=== PATIENT | female | born 1950 | race Caucasian/White ===

== ENCOUNTER 2022-10-01 08:45 | Outpatient (RCR) | payer MEDICARE, BC, SELFPAY ==
--- NOTE | 2022-07-09 13:47 | PT.OPDNX ---
PT [facility] Outpatient Daily Note PT [facility] Outpatient Daily Note Start: 05/28/22 07:01 Freq: Status: Active Protocol: Document 07/09/22 12:44 CLGreg (Rec: 07/09/22 12:50 CLGreg [id number]) E-signed By Annika Mckay, PT PT OP Daily Progress Note Visit Information Note Type Daily Note Visit Number [id number] Cancellation Note Cancelled Documentation Eval was on 10/14/21 Insurance Information Recert Due Date 05/27/22 Insurance Name Medicare B Medical Diagnosis BPPV Treating Diagnosis Ke Post Canal BPPV, imbalance Referring MD Dr Rosa Isela Siddiqui Subjective Subjective I have been having small symptoms over the past 2 weeks . It is not constant, and so far it is tolerable. Pattern of vertigo with looking up/ back, laying down on the right side. I'm just concerned it might turn into something more aggressive. Want to catch it early to prevent it getting worse. Pain Comments NA Dizziness scale score remains low Precautions Treatment Precautions/Contraindications Fall Risk if vertigo symptoms are triggered Weight Bearing Status Full Weight Bearing Home Exercise Home Exercise Comments She has been educated in postural tips, UT stretch, CX retraction with chin nods Objective Patient Instructed in Risks/Benefits Yes Manual Therapy Techniques Manual Therapy Minutes (minutes) 18 Manual Therapy Techniques Due to increased shoulder elevation and gaurding, she exhibited hypertonicity in ke UT and Rt scalene/levator. Completed DTM ke CS and along med and sup scap borders TPR. Maintaining neutral head on body position - completed in sitting. Neuromuscular Re-Ed Neuromuscular Reeducation Minutes ( 21 minutes) Neuromuscular Reeducation Comments (+) Rt Blackshear-Hallpike, so we completed Rt Canolyth repositioning for Rt BPPV X 2 reps with 5 min rest between reps. She reported full resolution of dizziness sxs following this treatment. Rt upward nystagmus seen in first treatment position. Negative re-testing following treatment. Reviewed with pt grounding exercise with diaphragmatic breathing after treatment. Treatment Minutes Timed Code Treatment Minutes 39 Total Treatment Time 39 Billing Units Manual Therapy Units 1 Therapeutic Activity Units 2 Assessment/Impression Assessment/Impression Client states she has been fairly symptoms free for the past 2 months, but slowly returning of unknown etiology. She was + testing for R posterior BPPV again today with sxs consistent with cupulothesis with immediate onset of sxs with testing again today. She is scheduled again for another PT session next week. Will re-assess symptoms and canals and treat as appropriate. Good response to Canolyth repositioning for Rt BPPV. Intrasession resolution of dizziness. She has been educated in post session reduced activity level and states she will be inactive and not complete any gardening/forward flexion or extra head on body movements. Tolerated DTM well for hypertonicity noted at CX region. Nice progress towards goals. Plan of Care Physical Therapy Goals To be completed within 10 weeks 1. Pt will report ability to complete bed mobility without dizziness. 2. Pt will demonstrate active cervical ROM without dizziness in order to better complete ADLs. 3. Pt will demonstrate independence with individualized HEP for self symptom management and to carryover therapeutic gains following discharge from PT services. Recertification Information Initial Certification Date 10/14/21 Recertification Start Date 07/09/22 Recertification Due Date 10/01/22 Reasons to Continue Skilled Therapy Intermittent sensation of dizziness CX pain and stiffness Rehabilitation Potential Good Continued Plan of Care and Interventions 1X/Wk for 10 visits Provider Signature Shows Agreement With POC & Medical Necessity Physician Comment/Change Comment or Changes Physician NPI Number #
== END 2022-12-22 15:29 | disposition home or self-care (01) ==
PROVIDERS: PCP Family Medicine; Visit Provider Family Medicine
DX: H81.13 Benign paroxysmal vertigo, bilateral (principal); Z51.89 Encounter for other specified aftercare
CPT/HCPCS: 95992; 97112; 97140; 97530; 97535

== ENCOUNTER 2023-05-26 08:15 | Outpatient (CLI) | payer MEDICARE, BC, SELFPAY | END 2023-05-26 08:16 | disposition home or self-care (01) | LOC: INJ CL 08:16 | PROVIDERS: PCP Family Medicine; Visit Provider Family Medicine | DX: M54.16 Radiculopathy, lumbar region (principal); M51.36 Other intervertebral disc degeneration, lumbar region | CPT/HCPCS: 62323; J0702; Q9966 ==

== ENCOUNTER 2023-06-11 09:30 | Outpatient (RCR) | payer MEDICARE, BC, SELFPAY | END 2023-10-09 23:59 | disposition home or self-care (01) | PROVIDERS: PCP Family Medicine; Visit Provider Family Medicine | DX: M48.062 Spinal stenosis, lumbar region with neurogenic claudication (principal); M43.16 Spondylolisthesis, lumbar region; Z51.89 Encounter for other specified aftercare | CPT/HCPCS: 97012; 97110; 97140; 97162 ==

== ENCOUNTER 2023-07-28 07:23 | Outpatient (CLI) | payer MEDICARE, BC, SELFPAY | END 2023-07-28 07:24 | disposition home or self-care (01) | LOC: INJ CL 07:26 | PROVIDERS: PCP Family Medicine; Visit Provider Family Medicine | DX: M54.16 Radiculopathy, lumbar region (principal); M48.062 Spinal stenosis, lumbar region with neurogenic claudication | CPT/HCPCS: 62323; J0702; Q9966 ==

== ENCOUNTER 2023-08-18 18:57 | Outpatient (CLI) | payer MEDICARE, BC, SELFPAY | END 2023-08-18 18:58 | disposition home or self-care (01) | LOC: AMB 08-21 21:36 | PROVIDERS: PCP Family Medicine; Visit Provider Family Medicine | DX: S89.92XA Unspecified injury of left lower leg, initial encounter (principal); W18.30XA Fall on same level, unspecified, initial encounter; Y92.009 Unspecified place in unspecified non-institutional (private) residence as the place of occurrence of the external cause | CPT/HCPCS: A0425; A0427; A0433 ==

== ENCOUNTER 2023-08-18 19:39 | Emergency (ER) | payer MEDICARE, BC, SELFPAY ==
--- NOTE | 2023-08-18 19:53 | CRLHL7_ITS ---
For Patients: As a result of the Cures Act, medical imaging exams and procedure reports are released immediately into your electronic medical record. You may view this report before your referring provider. If you have questions, please contact your health care provider. INDICATION: Femur injury from fall TECHNIQUE: Femur radiograph 4 views left COMPARISON: None FINDINGS: An overlying leg brace moderately limits the sensitivity and specificity of the examination. Bone: There is an angulated periprosthetic fracture seen along the tip of the femoral prosthesis. The distal fragment is displaced by 1 bone width. Joint: A constrained total knee arthroplasty is present with 2 cerclage wires noted in the distal femur. No significant joint effusion is seen. Soft tissue: Unremarkable. No radiopaque foreign bodies are seen. IMPRESSION: 1. There is an angulated periprosthetic fracture seen along the tip of the femoral prosthesis. The distal fragment is displaced by 1 bone width. Dictated by Reji Diaz MD @ 08/18/2023 9:32:37 PM Dictated by: Reji Diaz MD @ 08/18/2023 21:34:33 (Electronically Signed)
[2023-08-18 19:57] VITALS: BP 172/72; PULSE 74; RESP 18; TEMP 36.8; O2SAT 99; BMI 43.5
[2023-08-18 20:00] VITALS: BP 151/69; PULSE 74; RESP 18; O2SAT 97
[2023-08-18 20:30] VITALS: BP 164/49; PULSE 84; RESP 18; O2SAT 99
[2023-08-18 20:42] LABS: Basophils Absolute Auto 0.04 K/uL (0.00-0.30); Basophils Percent Auto 0.6 % (0.0-3.0); Eosinophils Absolute Auto 0.11 K/uL (0.00-0.50); Eosinophils Percent Auto 1.7 % (0.0-7.0); Hematocrit 29.3 % (33.0-51.0); Hemoglobin* 9.7 gm/dL (12.0-16.0); Immature Granulocytes Abs Auto 0.06 K/uL (0.00-0.30); Immature Granulocytes Pct Auto 0.9 %; Lymphocytes Percent Auto 14.5 % (20-44); Mean Corpuscular HGB Conc 33 gm/dL (32-36); Mean Corpuscular Hemoglobin 32 pg (26-34); Mean Corpuscular Volume 97 fL (80-100); Monocytes Percent Auto 7.2 % (0.0-11.0); Neutrophils Percent Auto 75.1 % (42.0-72.0); Platelet Count* 115 K/uL (140-440); Red Blood Count 3.02 m/uL (4.00-5.20); White Blood Count* 6.54 K/uL (4.50-11.00)
[2023-08-18 20:51] LABS: Slide Review Reflex No
[2023-08-18 20:59] LABS: Chloride* 101 mmol/L (96-114); Potassium* 3.5 mmol/L (3.6-5.1); Sodium* 137 mmol/L (135-149)
[2023-08-18 21:00] VITALS: BP 160/55; PULSE 83; RESP 18; O2SAT 99
[2023-08-18 21:01] LABS: INR 1.02 (0.91-1.10)
[2023-08-18 21:02] LABS: Anion Gap 10 mEq/L (7-15); Blood Urea Nitrogen* 30 mg/dL (7-30); Carbon Dioxide* 26 mmol/L (20-32); Creatinine* 1.1 mg/dL (0.5-1.5); Est. Creatinine Clearance* 34.37; Estimated Glomerular Filt Rate 53 ml/min; Glucose* 138 mg/dL (60-115); Partial Thromboplastin Time* 27 Seconds (23-33)
[2023-08-18 21:03] LABS: Calcium* 9.8 mg/dL (8.4-10.6)
--- NOTE | 2023-08-18 21:15 | ED_ITS ---
HPI - General Adult General Date Seen: 08/18/23 Chief complaint: Extremity Pain/Injury, Lower Stated complaint: Fall Time Seen by Provider: 08/18/23 19:48 Source: patient and EMS Mode of arrival: EMS Limitations: no limitations History of Present Illness HPI narrative: Patient is a 73-year-old woman who says that yesterday she turned funny, kind of tweaked her left leg, she had been having some pain shooting down the leg since then. She stood up from the couch today, had pain again, and then just feels like her leg went out from under her, she fell landing on her left side and then had severe pain and deformity in the left thigh. She denies head or neck injury. She had 100 mcg of fentanyl in the ambulance and now feels comfortable. She arrived on a backboard. The left leg is shortened. She has a history of TKA on the left, she then apparently broke through that titanium josé miguel on that side, had to have a revision which was done at [place]. That was in the past year or 2. Past medical history includes diabetes, vertigo, hypertension. She does not take any anticoagulation. Review of Systems Status of ROS: Reports: 10 or more systems reviewed and unremarkable except as noted in History and below [facility] Social History Smoking Status: Never smoker Do you use any of these nicotine containing products: None How often do you have a drink containing alcohol: never AUDIT-C Alcohol total score: 0 Non-prescribed substance use: denies use Exam Narrative: Exam Narrative: Vital signs as noted above. In general, an alert, nontoxic woman. Head: Normocephalic, atraumatic. Eyes: Pupils are equal reactive. Extraocular movements are full. Conjunctivae are normal. ENT: Mucous membranes are moist. Neck: Supple without lymphadenopathy. Nontender palpation. Heart: Regular rate and rhythm. No murmur or rub. Lungs: Clear bilaterally. No increased work of breathing, crackles or wheezes. Abdomen: Soft and nontender. No organomegaly. Extremities: Left leg is shortened. No bruising or active external bleeding. Distal CMS is normal, pulses intact. Neurologic: Patient is alert and oriented to person and place. Speech is fluent. Face is symmetric. Moves all extremities equally. Affect: Normal. Skin: Warm and dry. Well perfused. Const: Vital Signs, click to edit/add: Vital Signs - 24 hr 08/18/23 19:57 08/18/23 20:00 08/18/23 20:30 Temperature 98.2 F Pulse Rate [Right Pulse Oximeter] 74 74 84 Respiratory Rate 18 18 18 Blood Pressure [Ri ght Upper Arm] 172/72 H 151/69 H 164/49 H Pulse Oximetry 99 97 99 Oxygen Delivery Me thod Room Air Room Air Room Air 08/18/23 21:00 08/18/23 21:30 Temperature Pulse Rate [Right Pulse Oximeter] 83 84 Respiratory Rate 18 18 Blood Pressure [Ri ght Upper Arm] 160/55 H 160/58 H Pulse Oximetry 99 99 Oxygen Delivery Me thod Room Air Room Air Documenting provider has reviewed patient's vital signs: yes Course Course ED Course: Patient remained on the backward, she was comfortable there and it allowed us to stabilize her leg. She declined the need for anything more for pain. Labs were drawn, portable x-rays were done of the femur which by my review show an angula rambo, displaced fracture of the mid shaft, just proximal to the josé miguel from her TKA revision. I did call [address] given that that is where her most recent surgery was done, they are on full divert and do not have any bed availability. I was able to ultimately find a bed at [facility] and spoke with Dr. Liriano, who was on- call for the Orthopedic Service. He was able to review her x-rays, accepted her to their hospital and then I spoke with the PA who was taking admissions for our hospitalist service. Labs have returned showing a hemoglobin of 9.7, baseline unknown. The last hemoglobin we have here is from 2006. She does however have otherwise normal red blood cell indices. Platelet count slightly low 115,000. Coags normal. Metabolic panel fairly unremarkable. Potassium is 3.5. Blood sugar was 138. We do not have any kind of hare traction or other stabilizing measures here aside from splinting with Ortho Glass. For the time being, she is comfortable, vital signs are stable, transfer to tertiary care has been arranged. I believe EMS may potentially have traction splinting available, will check with them when they arrive. Alford catheter placed. Dilaudid 0.5 mg given. Vital Signs Vital signs: Initial Vital Signs Temperature 98.2 F 08/18/23 19:57 Temperature Source Temporal Artery Scan 08/18/23 19:57 Pulse Rate 74 08/18/23 19:57 Respiratory Rate 18 08/18/23 19:57 Blood Pressure 172/72 H 08/18/23 19:57 Blood Pressure Mean 105 08/18/23 19:57 Blood Pressure Position Supine 08/18/23 19:57 Pulse Oximetry 99 08/18/23 19:57 Oxygen Delivery Method Room Air 08/18/23 19:57 Vital Signs Temperature 98.2 F 08/18/23 19:57 Pulse Rate 74 08/18/23 19:57 Respiratory Rate 18 08/18/23 19:57 Blood Pressure 172/72 H 08/18/23 19:57 Pulse Oximetry 99 08/18/23 19:57 Oxygen Delivery Method Room Air 08/18/23 19:57 Temperature 98.2 F 08/18/23 19:57 Pulse Rate 84 08/18/23 21:30 Respiratory Rate 18 08/18/23 21:30 Blood Pressure 160/58 H 08/18/23 21:30 Pulse Oximetry 99 08/18/23 21:30 Oxygen Delivery Method Room Air 08/18/23 21:30 Medical Decision Making Lab Data Labs: Lab Results 08/18/23 Range/Units 20:32 WBC 6.54 (4.50-11.00) K/uL RBC 3.02 L (4.00-5.20) m/uL Hgb 9.7 L (12.0-16.0) gm/dL Hct 29.3 L (33.0-51.0) % MCV 97 (80-100) fL MCH 32 (26-34) pg MCHC 33 (32-36) gm/dL RDW Coeff of Cece 14.0 (11.5-15.5) % Plt Count 115 L (140-440) K/uL Neut % (Auto) 75.1 H (42.0-72.0) % Lymph % (Auto) 14.5 L (20-44) % Russell % (Auto) 7.2 (0.0-11.0) % Eos % (Auto) 1.7 (0.0-7.0) % Baso % (Auto) 0.6 (0.0-3.0) % Neut # (Auto) 4.90 (1.7-7.0) K/uL Lymph # (Auto) 0.90 (0.90-2.90) K/uL Russell # (Auto) 0.50 (0.00-0.90) K/UL Eos # (Auto) 0.11 (0.00-0.50) K/uL Baso # (Auto) 0.04 (0.00-0.30) K/uL Abs Immat Gran (auto) 0.06 (0.00-0.30) K/uL Imm/Tot Granulo (auto) 0.9 % INR 1.02 (0.91-1.10) APTT 27 (23-33) Seconds Sodium 137 (135-149) mmol/L Potassium 3.5 L (3.6-5.1) mmol/L Chloride 101 (96-114) mmol/L Carbon Dioxide 26 (20-32) mmol/L Anion Gap 10 (7-15) mEq/L BUN 30 (7-30) mg/dL Creatinine 1.1 (0.5-1.5) mg/dL Estimated Creat Clear 34.37 Estimated GFR 53 ml/min Glucose 138 H (60-115) mg/dL Calcium 9.8 (8.4-10.6) mg/dL Discharge Plan Discharge Clinical Impression: Chloé-prosthetic femoral shaft fracture Patient Disposition: Xfer Other Condition: Stable Stand Alone Forms: MyHealth Info Instructions
[2023-08-18 21:30] VITALS: BP 160/58; PULSE 84; RESP 18; O2SAT 99
--- NOTE | 2023-08-18 21:48 | ED.NURSE ---
report to [facility] nurse pablo FARMER. pt okay to transfer
[2023-08-18] MEDS: HYDROmorphone 0.5 mg/0.5 ml inj IVP (22:11)
[2023-08-18 22:52] VITALS: O2SAT 97
== END 2023-08-18 22:56 | disposition other institution (70) ==
PROVIDERS: Emergency Provider Emergency Medicine; PCP Family Medicine
DX: T84.115A Breakdown (mechanical) of internal fixation device of left femur, initial encounter (principal); X58.XXXA Exposure to other specified factors, initial encounter
CPT/HCPCS: 29505; 36415; 51702; 73552; 80048; 85025; 85610; 85730; 94761; 99284; 99285; J1170

== ENCOUNTER 2023-08-18 21:55 | Outpatient (CLI) | payer MEDICARE, BC, SELFPAY | END 2023-08-18 21:56 | disposition home or self-care (01) | LOC: AMB 08-21 21:39 | PROVIDERS: PCP Family Medicine; Visit Provider Family Medicine | DX: M97 Periprosthetic fracture around internal prosthetic joint (principal) | CPT/HCPCS: A0425; A0427 ==

== ENCOUNTER 2023-11-25 15:33 | Inpatient (IN) | payer MEDICARE, BC, SELFPAY ==
[2023-11-25] VITALS (14 sets, daily range): BP systolic 95–146; BP diastolic 33–81; PULSE 66–82; RESP 12–20; TEMP 36.1–36.8; O2SAT 93–100; BMI 41.4; BMI 42.4
--- NOTE | 2023-11-25 16:11 | ED.GENADULT ---
HPI - General Adult General Time Seen by Provider: 16:11 Date Seen: 11/25/23 Chief complaint: Weakness Stated complaint: Hemoglobin 5.8- sent over from [facility] Time Seen by Provider: 11/25/23 16:06 Source: patient Mode of arrival: ambulatory Limitations: no limitations History of Present Illness HPI narrative: This 73-year-old female is referred to us from [facility] for weakness, dyspnea on exertion and found to have a hemoglobin of 5.8. Two weeks ago her hemoglobin was 8. She has maybe noticed some blood in her stool but states she was told she had perianal skin tags found on her last colonoscopy which was 07/04/2021. She states Dr. Emmanuel did that procedure. I have outside documentation that shows she had negative pathology, ileum was biopsied, anal papilloma or hypertrophied in biopsied biopsies with cold forceps from the entire colon for evaluation of microscopic colitis was done, report states that all pathology was negative. She did have a redundant colon, diverticulosis in the sigmoid colon. She feels occasionally 1 of the anal polyps will break off and will bleed for while. She does state that she is on Pepcid, somewhat controls her GI symptoms. She used to be on Prilosec she believes but was switched over to the Pepcid due to some underlying kidney issues. She is not experiencing any abdominal pain, no nile GI bleeding, no chest pain. She does note that she just feels very weak, gets very short of breath with activity. She did have a femur fracture and was hospitalized in July of this year for this fracture. She did get Feraheme 510 mg, 2 doses July 01 and 07/08/2023; prior to that it looks like she is had Feraheme in July of 2022 for 2 doses of 510 mg. There is a reported Hematology consult on 08/10/2023, her anemia dates back to 2019. She would agree to a transfusion today. Colonoscopy before the 1 in 2020 was June of 2013 and was normal with recommendation to repeat in 10 years. She states her most recent 1 that she was told she could repeat in 10 years. The Hematology found her to have iron deficiency anemia, longstanding, dating back to at least 15 years ago. Her white blood count today was 6000, hemoglobin 5.8, platelet count [id number] in clinic. On 11/11/2023, patient had a normal electric for retic pattern on serum electrophoresis, no monoclonal protein was detected her hemoglobin on November 04 from clinic was 9.8. EKG from clinic showed normal sinus rhythm, 69 beats per minute, no ischemia. Related Data Home Medications Medication Instructions Recorded Confirmed allopurinol 100 mg tablet 100 - 200 mg PO Q12H 11/25/23 11/25/23 ampicillin 500 mg capsule 2,000 mg PO ONCE 11/25/23 11/25/23 aspirin 81 mg capsule 81 mg PO DAILY 11/25/23 11/25/23 celecoxib 100 mg capsule 100 mg PO BID PRN pain 11/25/23 11/25/23 cyclobenzaprine 10 mg tablet 10 mg PO HS PRN 11/25/23 11/25/23 dulaglutide 1.5 mg/0.5 mL 1.5 mg subcut .twice week 11/25/23 11/25/23 subcutaneous pen injector (Trulicity) famotidine 20 mg tablet 20 mg PO BID 11/25/23 11/25/23 ferrous sulfate 325 mg (65 mg 325 mg PO DAILY 11/25/23 11/25/23 iron) tablet (Feosol) fluticasone propionate 50 2 spray intranasal DAILY 11/25/23 11/25/23 mcg/actuation nasal spray,suspension gabapentin 300 mg capsule 600 - 900 mg PO Q12H 11/25/23 11/25/23 glipizide 10 mg tablet, extended 10 mg PO DAILY 11/25/23 11/25/23 release 24 hr hydrochlorothiazide 25 mg tablet 25 mg PO DAILY 11/25/23 11/25/23 loratadine 10 mg tablet (Claritin) 10 mg PO DAILY 11/25/23 11/25/23 losartan 50 mg tablet 50 mg PO DAILY 11/25/23 11/25/23 meclizine 25 mg tablet 25 mg PO TID PRN 11/25/23 11/25/23 metoprolol tartrate 25 mg tablet 12.5 mg PO Q12H 11/25/23 11/25/23 montelukast 10 mg tablet 10 mg PO QPM 11/25/23 11/25/23 polyethylene glycol 3350 17 17 g PO DAILY PRN 11/25/23 11/25/23 gram/dose oral powder (ClearLax) simvastatin 40 mg tablet 40 mg PO QPM 11/25/23 11/25/23 tramadol 50 mg tablet 50 mg PO BID PRN pain 11/25/23 11/25/23 Allergies Allergy/AdvReac Type Severity Reaction Status Date / Time acetaminophen [From Percocet] AdvReac Intermediate nausea and Verified 11/25/23 16:12 headache oxycodone [From Percocet] AdvReac Intermediate nausea and Verified 11/25/23 16:12 headache Review of Systems Status of ROS: Reports: 6 or more systems reviewed and unremarkable except as noted in History and below PFSH [facility] Social History Smoking Status: Never smoker Do you use any of these nicotine containing products: None How often do you have a drink containing alcohol: never AUDIT-C Alcohol total score: 0 Non-prescribed substance use: denies use Exam Const: Vital Signs, click to edit/add: Vital Signs - 24 hr 11/25/23 15:38 11/25/23 17:06 Temperature 98.2 F Pulse Rate [Pulse Oximeter] 74 Respiratory Rate 18 Blood Pressure [Ri ght Forearm] 117/66 Pulse Oximetry 100 96 Oxygen Delivery Me thod Room Air This 73-year-old female is alert, interactive, no apparent distress. She does look mildly pale but does not seem frail at all. Sclera clear, conjugate gaze. Neck supple, no cervical adenopathy driving stench in noted. Lungs clear, good air entry, no wheezing or crackles, no tachypnea, no accessory muscle use. CV regular rate and rhythm, soft 1-2 systolic ejection murmur heard along the right sternal border, no radiation anywhere. Normal S1-S2, no S3-S4. Abdomen is mildly obese but soft, nontender, no palpable masses. She has thickened lower extremities but no edema. She has some redundant it anal mucosa but no skin takes noted, no active bleeding. Rectal exam is without any mass, dark tarry stool is taken, small amount, this is sent for fecal occult blood. Note patient does take daily iron supplement. Documenting provider has reviewed patient's vital signs: yes Course Course ED Course: Patient does agree to a transfusion, she wants 1, wants to feel better. Will do blood work on her, get her cross matched for 2 units, at 5.8, 1 unit and is not likely to be sufficient. Will see where her creatinine lies today, consider giving her proton pump inhibitor IV but does for kidney dysfunction. She is currently stable, does not have any evidence of any acute bleeding. Await the fecal occult blood. Do not see that she needs any imaging at this time, exam is otherwise benign, no abdominal exam, no fevers. Consultations Consultation #1: Spoke with Dr. Mckeon our surgeon on-call. She agrees to at this patient for EGD tomorrow. I will place the order, and did leave a message on the endoscopy phone as she requested. Time: 16:29 Consultation #2: Spoke with Cinthia Mena, this patient is accepted for admission. Will give Protonix 40 mg IV. Fecal occult blood still pending at time of admission. Time: 17:40 Vital Signs Vital signs: Initial Vital Signs Temperature 98.2 F 11/25/23 15:38 Temperature Source Temporal Artery Scan 11/25/23 15:38 Pulse Rate 74 11/25/23 15:38 Respiratory Rate 18 11/25/23 15:38 Blood Pressure 117/66 11/25/23 15:38 Blood Pressure Mean 83 11/25/23 15:38 Blood Pressure Position Sitting 11/25/23 15:38 Pulse Oximetry 100 11/25/23 15:38 Oxygen Delivery Method Room Air 11/25/23 15:38 Vital Signs Temperature 98.2 F 11/25/23 15:38 Pulse Rate 74 11/25/23 15:38 Respiratory Rate 18 11/25/23 15:38 Blood Pressure 117/66 11/25/23 15:38 Pulse Oximetry 100 11/25/23 15:38 Oxygen Delivery Method Room Air 11/25/23 15:38 Temperature 98.2 F 11/25/23 15:38 Pulse Rate 74 11/25/23 15:38 Respiratory Rate 18 11/25/23 15:38 Blood Pressure 117/66 11/25/23 15:38 Pulse Oximetry 96 11/25/23 17:06 Oxygen Delivery Method Room Air 11/25/23 15:38 Medical Decision Making Lab Data Lab results reviewed: Yes I reviewed the patient's lab results Labs: Lab Results 11/25/23 11/25/23 11/25/23 Range/Units 14:40 16:40 16:56 WBC 5.44 (4.50-11.00) K/uL RBC 1.63 L (4.00-5.20) m/uL Hgb 5.3 L* (12.0-16.0) gm/dL Hct 18.2 L (33.0-51.0) % MCV 112 H (80-100) fL MCH 33 (26-34) pg MCHC 29 L (32-36) gm/dL RDW Coeff of Cece 20.2 H (11.5-15.5) % Plt Count 175 (140-440) K/uL Neut % (Auto) 74.6 H (42.0-72.0) % Lymph % (Auto) 15.1 L (20-44) % Dougherty % (Auto) 7.5 (0.0-11.0) % Eos % (Auto) 2.0 (0.0-7.0) % Baso % (Auto) 0.4 (0.0-3.0) % Neut # (Auto) 4.10 (1.7-7.0) K/uL Lymph # (Auto) 0.80 L (0.90-2.90) K/uL Dougherty # (Auto) 0.40 (0.00-0.90) K/UL Eos # (Auto) 0.11 (0.00-0.50) K/uL Baso # (Auto) 0.02 (0.00-0.30) K/uL Abs Immat Gran (auto) 0.02 (0.00-0.30) K/uL Imm/Tot Granulo (auto) 0.4 % VBG pH 7.411 (7.32-7.43) VBG pCO2 43 (40-50) mmHG VBG pO2 68.5 H (25-47) mmHG VBG HCO3 27 (21-28) mmol/L Sodium 139 (135-149) mmol/L Potassium 3.4 L (3.6-5.1) mmol/L Chloride 102 (96-114) mmol/L Carbon Dioxide 25 (20-32) mmol/L Anion Gap 12 (7-15) mEq/L BUN 34 H (7-30) mg/dL Creatinine 1.3 (0.5-1.5) mg/dL Estimated Creat Clear 29.08 Estimated GFR 43 ml/min Glucose 119 H (60-115) mg/dL Calcium 8.8 (8.4-10.6) mg/dL Total Bilirubin 0.2 (0.1-1.5) mg/dL AST 19 (12-35) U/L ALT 14 (4-35) U/L Alkaline Phosphatase 52 (40-150) U/L Troponin I < 0.01 L (0.01-0.04) ng/mL Total Protein 6.2 (6.0-8.3) g/dL Albumin 4.0 (3.3-5.0) g/dL Crossmatch (AHG) See Detail Imaging Data Chest x-ray: Attestation: I have reviewed the pertinent imaging results. My impression: I see no evidence of any CHF, no infiltrate, wait radiology over read. Radiologist's impression: Patient: SCARLET GUERIN Facility:?[facility] Patient ID:?[id number] Site Patient ID:?[id number]. Site :?[id number] Study:?XRay Chest 1V PORTABLE-11/25/2023 5:16:28 PM Ordering Physician:Oliva Lennon Final Report: INDICATION: Shortness of breath TECHNIQUE: Chest 1 views. COMPARISON: None. FINDINGS: The heart is mildly enlarged, likely accentuated by portable technique. No focal airspace consolidation, pleural effusion, or pneumothorax. No displaced fractures. IMPRESSION: No acute cardiopulmonary process. Dictated by Alsesio Zhou MD @ 11/25/2023 5:30:08 PM (Electronic Signature) ECG Data Attestation: I personally reviewed and interpreted this ECG as follows: (Normal sinus rhythm, 65 beats per minute, no acute ischemic change, QT corrected 474 milliseconds.) Prior ECG tracings: available for review (Unchanged from clinic comparison.) Discharge Plan Discharge Clinical Impression: Shortness of breath, Iron deficiency anemia Patient Disposition: Admitted As Observation
--- NOTE | 2023-11-25 16:26 | CRLHL7_ITS ---
For Patients: As a result of the Century Cures Act, medical imaging exams and procedure reports are released immediately into your electronic medical record. You may view this report before your referring provider. If you have questions, please contact your health care provider. INDICATION: Shortness of breath TECHNIQUE: Chest 1 views. COMPARISON: None. FINDINGS: The heart is mildly enlarged, likely accentuated by portable technique. No focal airspace consolidation, pleural effusion, or pneumothorax. No displaced fractures. IMPRESSION: No acute cardiopulmonary process. Dictated by Alessio Zhou MD @ 11/25/2023 5:30:08 PM (Electronically Signed)
[2023-11-25 16:51] LABS: HCO3 VBG 27 mmol/L (21-28); PCO2 VBG 43 mmHG (40-50); PO2 VBG 68.5 mmHG (25-47); pH VBG 7.411 (7.32-7.43)
[2023-11-25 16:52] LABS: Basophils Absolute Auto 0.02 K/uL (0.00-0.30); Basophils Percent Auto 0.4 % (0.0-3.0); Eosinophils Absolute Auto 0.11 K/uL (0.00-0.50); Hematocrit 18.2 % (33.0-51.0); Immature Granulocytes Abs Auto 0.02 K/uL (0.00-0.30); Immature Granulocytes Pct Auto 0.4 %; Lymphocytes Percent Auto 15.1 % (20-44); Mean Corpuscular HGB Conc 29 gm/dL (32-36); Mean Corpuscular Hemoglobin 33 pg (26-34); Mean Corpuscular Volume 112 fL (80-100); Monocytes Percent Auto 7.5 % (0.0-11.0); Neutrophils Percent Auto 74.6 % (42.0-72.0); Platelet Count* 175 K/uL (140-440); RDW Coefficient of Variation % 20.2 % (11.5-15.5); Red Blood Count 1.63 m/uL (4.00-5.20); White Blood Count* 5.44 K/uL (4.50-11.00)
[2023-11-25 17:03] LABS: Hemoglobin* 5.3 gm/dL (12.0-16.0); Slide Review Reflex Yes
[2023-11-25 17:12] LABS: Chloride* 102 mmol/L (96-114)
[2023-11-25 17:13] LABS: Potassium* 3.4 mmol/L (3.6-5.1); Sodium* 139 mmol/L (135-149)
[2023-11-25 17:15] LABS: Anion Gap 12 mEq/L (7-15); Aspartate Amino Transferase* 19 U/L (12-35); Bilirubin Total* 0.2 mg/dL (0.1-1.5); Blood Urea Nitrogen* 34 mg/dL (7-30); Carbon Dioxide* 25 mmol/L (20-32); Creatinine* 1.3 mg/dL (0.5-1.5); Est. Creatinine Clearance* 29.08; Estimated Glomerular Filt Rate 43 ml/min; Total Protein* 6.2 g/dL (6.0-8.3)
[2023-11-25 17:16] LABS: Alanine Aminotransferase* 14 U/L (4-35); Alkaline Phosphatase* 52 U/L (40-150); Calcium* 8.8 mg/dL (8.4-10.6); Glucose* 119 mg/dL (60-115)
[2023-11-25 17:29] LABS: Troponin I* < 0.01 ng/mL (0.01-0.04)
[2023-11-25 17:54] LABS: Slide Review Acceptable Review (Acceptable)
--- NOTE | 2023-11-25 18:02 | P.IMHP_ITS ---
Hospitalist- H&P: HPI History of Present Illness Date Seen: 11/25/23 Chief complaint: Hemoglobin 5.8- sent over from greg Narrative: Kina Riley is a 73 year old female past medical history significant for type 2 diabetes mellitus, CKD stage 3, hypertension, hyperlipidemia, obesity, iron deficiency anemia followed by Hematology, spondylolisthesis lumbar, lumbar radiculopathy, s/p bilateral TKA is admitted to the medical floor from the ED for further management anemia. Patient was referred to the ED from the [facility] for weakness and dyspnea on exertion with a finding of a hemoglobin of 5.8 in the clinic. She tells me two weeks prior her hemoglobin was 8.6. She admits to profound fatigue, weakness, shortness of breath with ambulation for the past 5-6 days. She tells me she slept through [place]. She has been taking her usual oral iron and vitamin B12 as prescribed. She even purposely increased her dietary iron intake hoping this would resolve her symptoms. Denies recent headaches. Has occasional dizziness with positional changes with known history of BPV. Denies chest pain. Denies recent fevers chills or sweats. Admits to decreased appetite. Denies abdominal pain nausea vomiting. Had 1 loose stool recently which she describes as looking like tobacco (a light brown rather than a dark brown coffee ground she tells me). She has on occasion small streaks of bright red blood on the toilet paper which is normal for her. No change in urination. History of perianal skin tags and polyps. She takes Pepcid daily, previously taking Prilosec but perhaps stop this in setting of chronic kidney disease. She has a longstanding history of iron deficiency anemia for which she takes oral iron and vitamin B12 daily. She is followed by [facility] Hematology, her last visit was in July. She has been referred to Colorectal surgery but has declined following up with them thus far. ED provider discussed findings with Dr. Mckeon, general surgery. Plan will be for an EGD tomorrow. Patient has remained vitally stable. Review of Systems Narrative: REVIEW OF SYSTEMS: Complete review of systems performed and negative unless otherwise stated in HPI or below. [facility] Medical History (Updated 11/25/23 @ 19:58 by Cinthia Wilson PA-C) Gout ?M10.9 - Gout, unspecified (ICD-10) Chronic pain of left knee ?M25.562 - Pain in left knee (ICD-10) ?G89.29 - Other chronic pain (ICD-10) Lumbar radiculopathy ?M54.16 - Radiculopathy, lumbar region (ICD-10) CKD stage 3 due to type 1 diabetes mellitus ?E10.22 - Type 1 diabetes mellitus with diabetic chronic kidney disease (ICD- 10) ?N18.30 - Chronic kidney disease, stage 3 unspecified (ICD-10) Spondylolisthesis, lumbar region ?M43.16 - Spondylolisthesis, lumbar region (ICD-10) Obesity ?E66.9 - Obesity, unspecified (ICD-10) Hyperlipidemia ?E78.5 - Hyperlipidemia, unspecified (ICD-10) Type 2 diabetes mellitus ?E11.9 - Type 2 diabetes mellitus without complications (ICD-10) Hypertension ?I10 - Essential (primary) hypertension (ICD-10) Surgical History (Updated 11/25/23 @ 18:05 by Cinthia Wilson PA-C) History of total knee arthroplasty ?Z96.659 - Presence of unspecified artificial knee joint (ICD-10) Hx of cholecystectomy ?Z90.49 - Acquired absence of other specified parts of digestive tract (ICD- 10) Social History What is your current living situation?: I presently have a place to live Problems where you live: no known problems Problems where you live details: none In the past 12 months, utilities in danger of being shut off: no In past 12 months, lack of transportation kept you from medical appts, meetings, work, or getting things needed for daily living: no In the past 12 mos, have been you worried that your food would run out before y ou had money to buy more?: never true In the past 12 mos, the food you bought just didn't last and you didn't have money to buy more?: never true Highest level of school completed/degree received: some college, no degree Smoking Status: Never smoker Do you use any of these nicotine containing products: None How often do you have a drink containing alcohol: never AUDIT-C Alcohol total score: 0 Non-prescribed substance use: denies use Caffeine: Yes (1 cup a day) How often does anyone, including family, friends and others, physically hurt you : never How often does anyone, including family, friends and others, insult or talk down to you: never How often does anyone, including family, friends and others, threaten you with harm: never How often does anyone, including family, friends and others, scream or curse at you: never service: No Meds Home Medications and Allergies Home Medications Medication Instructions Recorded Confirmed Type allopurinol 100 mg tablet 100 - 200 mg PO Q12H 11/25/23 11/25/23 History ampicillin 500 mg capsule 2,000 mg PO ONCE 11/25/23 11/25/23 History aspirin 81 mg capsule 81 mg PO DAILY 11/25/23 11/25/23 History celecoxib 100 mg capsule 100 mg PO BID PRN pain 11/25/23 11/25/23 History cyclobenzaprine 10 mg tablet 10 mg PO HS PRN 11/25/23 11/25/23 History dulaglutide 1.5 mg/0.5 mL 1.5 mg subcut .twice week 11/25/23 11/25/23 History subcutaneous pen injector (Trulicity) famotidine 20 mg tablet 20 mg PO BID 11/25/23 11/25/23 History ferrous sulfate 325 mg (65 mg 325 mg PO DAILY 11/25/23 11/25/23 History iron) tablet (Feosol) fluticasone propionate 50 2 spray intranasal DAILY 11/25/23 11/25/23 History mcg/actuation nasal spray,suspension gabapentin 300 mg capsule 600 - 900 mg PO Q12H 11/25/23 11/25/23 History glipizide 10 mg tablet, extended 10 mg PO DAILY 11/25/23 11/25/23 History release 24 hr hydrochlorothiazide 25 mg tablet 25 mg PO DAILY 11/25/23 11/25/23 History loratadine 10 mg tablet (Claritin) 10 mg PO DAILY 11/25/23 11/25/23 History losartan 50 mg tablet 50 mg PO DAILY 11/25/23 11/25/23 History meclizine 25 mg tablet 25 mg PO TID PRN 11/25/23 11/25/23 History metoprolol tartrate 25 mg tablet 12.5 mg PO Q12H 11/25/23 11/25/23 History montelukast 10 mg tablet 10 mg PO QPM 11/25/23 11/25/23 History polyethylene glycol 3350 17 17 g PO DAILY PRN 11/25/23 11/25/23 History gram/dose oral powder (ClearLax) simvastatin 40 mg tablet 40 mg PO QPM 11/25/23 11/25/23 History tramadol 50 mg tablet 50 mg PO BID PRN pain 11/25/23 11/25/23 History Allergies Allergy/AdvReac Type Severity Reaction Status Date / Time acetaminophen [From Percocet] AdvReac Intermediate nausea and Verified 11/25/23 16:12 headache oxycodone [From Percocet] AdvReac Intermediate nausea and Verified 11/25/23 16:12 headache tramadol AdvReac Nausea Verified 11/25/23 19:22 Exam Narrative: Exam Narrative: PHYSICAL EXAM General: Pleasant, conversant, NAD HEENT: Normocephalic, atraumatic, sclera white, EOMI, oral mucosa moist Cardiovascular: RRR, S1S2. No pitting edema Pulmonary: CTA bilaterally without rhonchi, rales, expiratory wheezes. No dyspnea Abdominal: Soft, nondistended, NTTP Neurological: Alert, answering questions appropriately, cranial nerves intact, no focal findings Extremities: No gross joint deformity or swelling. AROMI. Neurovascularly intact Skin: Pale. Warm, dry. Const: Vital Signs, click to edit/add: Vital Signs - 24 hr 11/25/23 15:38 11/25/23 17:06 Temperature 98.2 F Pulse Rate [Pulse Oximeter] 74 Respiratory Rate 18 Blood Pressure [Ri ght Forearm] 117/66 Pulse Oximetry 100 96 Oxygen Delivery Dc thod Room Air Hospitalist - H&P: Result Labs Labs: Short CBC 11/25/23 Range/Units 14:40 WBC 5.44 (4.50-11.00) K/uL Hgb 5.3 L* (12.0-16.0) gm/dL Hct 18.2 L (33.0-51.0) % Plt Count 175 (140-440) K/uL BMP 11/25/23 14:40 Sodium 139 Potassium 3.4 L Chloride 102 Carbon Dioxide 25 BUN 34 H Creatinine 1.3 Glucose 119 H Calcium 8.8 Cardiac Enzymes 11/25/23 Range/Units 16:40 Troponin I < 0.01 L (0.01-0.04) ng/mL Liver Function 11/25/23 Range/Units 14:40 Total Bilirubin 0.2 (0.1-1.5) mg/dL AST 19 (12-35) U/L ALT 14 (4-35) U/L Alkaline Phosphatase 52 (40-150) U/L Albumin 4.0 (3.3-5.0) g/dL Imaging Colonoscopy 07/04/2021: Radiologist's impression: * 07/04/21: Colonoscopy Pathology negative Impressions/Post-Op Diagnosis: ?- Perianal skin tags found on perianal exam. ?- Diverticulosis in the sigmoid colon. ?- Redundant colon. ?- The examined portion of the ileum was normal. Biopsied. ?- Anal papilla(e) were hypertrophied. Biopsied. ?- The examination was otherwise normal on direct and retroflexion views. ?- Biopsies were taken with a cold forceps from the entire colon for ?evaluation of microscopic colitis. Chest x-ray: Attestation: I have reviewed the pertinent imaging results. Radiologist's impression: Chest 1 views. COMPARISON: None. FINDINGS: The heart is mildly enlarged, likely accentuated by portable technique. No focal airspace consolidation, pleural effusion, or pneumothorax. No displaced fractures. IMPRESSION: No acute cardiopulmonary process. Assessment and Plan Assessment and plan (1) Iron deficiency anemia: Problem comment: -longstanding, dating back at least 15 years -followed by [facility] hematology, consultation 08/09/2023, reviewed -on oral iron since 2019. Also taking vitamin B12 daily. Colonoscopy pathology was negative 07/04/2021 -history of Feraheme infusions July 2022 and June 2023, baseline hemoglobin 9-12 -on admission, hemoglobin 5.3, RBC 1.63, HCT 18.2, MCV 112, platelets 175. FOBT pending. -symptomatic with weakness and dyspnea on exertion. -will transfuse 2 units PRBC, follow serial hemoglobins -iron studies ordered -ED provider discussed with Dr. Mckeon, general surgery, plan for EGD tomorrow 11/26 Status: Chronic (2) Hypertension: Problem comment: -continue losartan, metoprolol with parameters -hold HCTZ (Credit Resolution Representative 1.3 near baseline), mildly hypotensive on arrival to the floor Status: Chronic (3) Type 2 diabetes mellitus: Problem comment: -most recent A1c 6.2 (May 2023) -hold Trulicity, continue Glucotrol XL -diabetic diet, glucose checks ACHS, insulin sliding scale Status: Chronic (4) Hyperlipidemia: Problem comment: -continue statin Status: Chronic (5) CKD stage 3 due to type 1 diabetes mellitus: Problem comment: -creatinine 1.3, previously 1.1 -avoid nephrotoxic medications, hold HCTZ for now, continue to monitor Status: Chronic (6) Hypokalemia: Problem comment: -mild, potassium 3.4, recheck in a.m. Status: Acute Plan CODE: Full VTE PPX: SCDs, avoid chemical prophylaxis in setting of possible bleed Disposition: Observation
--- NOTE | 2023-11-25 18:06 | ED.NURSE ---
Report given to MARLENY Davila. Pt will go to Rm [id number].
--- NOTE | 2023-11-25 18:12 | ED.NURSE ---
Blood transfusion consent signed and sent with Pt to M/S.
[2023-11-25 19:07] LABS: Iron* 323 ug/dL (37-170)
[2023-11-25 19:16] LABS: Percent Iron Saturation 83 % (20-50); Total Iron Binding Capacity 392 ug/dL (265-497)
--- NOTE | 2023-11-25 19:26 | PC.NURSE ---
End of Shift: Patient arrived to floor about 1830. Patient with low BP, but vitally stable, lungs clear, BS WNL, IV SL and intact. Patient denies pain. Admission completed, then food given to patient.
[2023-11-25] MEDS: GABAPENTIN 300 MG CAPSULE PO (20:59)
[2023-11-25] MEDS: METOPROLOL TARTRATE 25 MG TABLET 12.5 MG PO (20:59)
[2023-11-25] MEDS: ACETAMINOPHEN 325 MG TABLET PO (21:00)
[2023-11-25] MEDS: allopurinoL 100 MG TABLET PO (21:00)
[2023-11-25] MEDS: PANTOPRAZOLE SODIUM 40 MG INJ 20 MG IVP (21:02)
[2023-11-25] MEDS: SODIUM CHLORIDE 0.9 % (FLUSH) 10 ML SYRINGE 5 ML IVF (21:03)
[2023-11-25 22:07] LABS: Fecal Occult Blood* Positive (Negative)
[2023-11-26] VITALS (14 sets, daily range): BP systolic 122–144; BP diastolic 40–54; PULSE 65–90; RESP 16–20; TEMP 35.9–36.8; O2SAT 91–99
--- NOTE | 2023-11-26 04:33 | PC.NURSE ---
Per MD, if Hgb recheck after 2nd unit of blood is 7 or above, no action required. Lab notified Charge nurse of Hgb value of 7 at approximately 0430. No actions taken.
--- NOTE | 2023-11-26 07:06 | PC.NURSE ---
End of shift [id number] ? Pt alert, oriented, cooperative. Up to bathroom with standby assistance, walker, gait belt. Tolerating RA, regular diet, fluids. NPO after midnight, tolerating well. Continent of bowel and bladder. Pt denied pain during shift, but did request Tylenol as she takes it regularly at home for arthritis pain. Pt received blood products during shift per TAR record.?Denied SOB, nausea, dizziness before, during, and after transfusion. Observed to sleep during shift, appears to be resting comfortably at end of shift.
[2023-11-26] MEDS: glipiZIDE XL 5 MG TAB 10 MG PO (08:22)
[2023-11-26] MEDS: GABAPENTIN 300 MG CAPSULE 600 MG PO (08:23)
[2023-11-26] MEDS: allopurinoL 100 MG TABLET 200 MG PO (08:24)
[2023-11-26] MEDS: LORATADINE 10 MG TABLET PO (08:25)
[2023-11-26] MEDS: METOPROLOL TARTRATE 25 MG TABLET 12.5 MG PO ×2 (08:26→21:05)
[2023-11-26] MEDS: LOSARTAN POTASSIUM 50 MG TABLET PO (08:26)
[2023-11-26] MEDS: SODIUM CHLORIDE 0.9 % (FLUSH) 10 ML SYRINGE 5 ML IVF ×2 (08:27→21:07)
[2023-11-26] MEDS: PANTOPRAZOLE SODIUM 40 MG INJ 20 MG IVP ×2 (08:27→21:06)
--- NOTE | 2023-11-26 12:14 | W.ANESCHARGE ---
Anesthesia Charges Start Date/Time Anesthesia Start Date: 11/26/23 Anesthesia Start Time: 11:47 Stop Date/Time Anesthesia Stop Date: 11/26/23 Anesthesia Stop Time: 12:08 Summary Extremes of Age - Over 70 or under 1: [employer]RECTIONAL [employer]PER[employer]OR [employer]UT[employer]NT
--- NOTE | 2023-11-26 12:33 | W.ANESCHARGE ---
Anesthesia Charges Start Date/Time Anesthesia Start Date: 11/26/23 Anesthesia Start Time: 11:47 Stop Date/Time Anesthesia Stop Date: 11/26/23 Anesthesia Stop Time: 12:08 Summary Extremes of Age - Over 70 or under 1: MDA
--- NOTE | 2023-11-26 14:23 | P.IMPN_ITS ---
Progress Note: A&P Assessment and plan (1) Iron deficiency anemia: Problem details: Longstanding anemia including iron deficiency anemia in the past. Now with ongoing progressive anemia and normal and elevated iron indices. I suspect ongoing bleeding as the cause of her anemia. EGD done today is normal. She may need evaluation for small-bowel hemorrhage. Status: Chronic (2) Gastrointestinal bleeding: Problem details: Normal EGD. Normal colonoscopy 2 years ago. Suspect small-bowel hemorrhage. Continue to monitor for evidence of bleeding overnight. Status: Acute (3) CKD stage 3 due to type 1 diabetes mellitus: Problem details: -creatinine 1.3, previously 1.1 -avoid nephrotoxic medications, hold HCTZ for now, continue to monitor Status: Chronic Plan Continue in-hospital for monitoring of bleeding. If stable can be discharged to home for outpatient follow-up including investigation of small-bowel source of hemorrhage Time Spent With Patient Total time spent: Total time spent today is 55 minutes, 40 minutes in coordination of care discussing with patient other providers ongoing evaluation management of anemia and GI bleeding Subjective Date Seen: 11/26/23 Interval history: 49-year-old female admitted to the hospital with lightheadedness fatigue weakness and dyspnea for last few days. She went to clinic where she was found to have a hemoglobin of 5.8. She was referred to the hospital for evaluation and treatment. She has had a longstanding history of anemia and treatment for anemia. She has been seen by Hematology at [facility] where she was diagnosed with iron deficiency anemia. She has received previous intravenous iron trip therapy and is on chronic oral iron therapy. In July her hemoglobin was 10.7. She sustained a left femur fracture September 2023 and her hemoglobin dropped to 6.2. She did receive 1 unit of blood cells and hemoglobin improved to 8.2. At follow-up in clinic her hemoglobin was 10.2 She reports occasional episodes of rectal bleeding. She reports she has perianal skin tags that she thinks adequate source of this. Her last colonoscopy was 07/04/2021 with normal biopsies and a recommendation to repeat in 10 years. She also had a normal EGD in 2016. Other than occasional rectal bleeding she has not had any other evidence of bleeding. She does report ongoing black stools which she attributes to her chronic iron therapy. Notably she has had relatively normal iron studies over the past year. 07/31/2023 she had a hemoglobin of 11.0 with other normal indices and iron level of 89 iron binding of 343 and an iron saturation of 26, all normal. her ferritin level at that time was elevated at 203. On admission on November 25 her iron was 323, iron binding 392 and% saturation was 83%. Both iron and % saturation were significantly above normal range. Exam Narrative: Exam Narrative: She is alert and appears in no distress. Respirations are clear to au scultation. Cardiovascular: S1, S2, 2/6 systolic murmur no gallop or rub. Abdomen is soft without tenderness or mass. Extremities with trace edema. Good perfusion all 4 extremities. Const: Vital Signs, click to edit/add: Vital Signs - 24 hr 11/25/23 15:38 11/25/23 16:00 11/25/23 17:00 Temperature 98.2 F Pulse Rate 78 71 Pulse Rate [Pulse Oximeter] 74 Pulse Rate [orthos tatic lying] Pulse Rate [orthos tatic sitting] Pulse Rate [orthos tatic standing] Respiratory Rate 18 14 12 Blood Pressure 132/74 110/74 Blood Pressure [Ri ght FA] Blood Pressure [Ri ght Forearm] 117/66 Blood Pressure [or thostatic lying] Blood Pressure [or thostatic sitting] Blood Pressure [or thostatic standing ] Pulse Oximetry 100 98 98 Oxygen Delivery Me thod Room Air 11/25/23 17:06 11/25/23 18:14 11/25/23 18:31 Temperature 98.2 F 98 F Pulse Rate Pulse Rate [Pulse Oximeter] 74 66 Pulse Rate [orthos tatic lying] Pulse Rate [orthos tatic sitting] Pulse Rate [orthos tatic standing] Respiratory Rate 18 14 Blood Pressure Blood Pressure [Ri ght FA] 95/81 Blood Pressure [Ri ght Forearm] 117/66 Blood Pressure [or thostatic lying] Blood Pressure [or thostatic sitting] Blood Pressure [or thostatic standing ] Pulse Oximetry 96 98 Oxygen Delivery Me thod Room Air 11/25/23 18:40 11/25/23 19:00 11/25/23 19:06 Temperature 98.0 F Pulse Rate Pulse Rate [Pulse Oximeter] 72 Pulse Rate [orthos tatic lying] Pulse Rate [orthos tatic sitting] Pulse Rate [orthos tatic standing] Respiratory Rate 14 20 Blood Pressure Blood Pressure [Ri ght FA] 133/34 L Blood Pressure [Ri ght Forearm] Blood Pressure [or thostatic lying] Blood Pressure [or thostatic sitting] Blood Pressure [or thostatic standing ] Pulse Oximetry 98 96 98 Oxygen Delivery Me od Room Air Room Air Room Air 11/25/23 20:40 11/25/23 22:05 11/25/23 22:30 Temperature 96.9 F L 97.2 F L Pulse Rate 69 70 Pulse Rate [Pulse Oximeter] Pulse Rate [orthos tatic lying] 72 Pulse Rate [orthos tatic sitting] 76 Pulse Rate [orthos tatic standing] 82 Respiratory Rate 20 20 Blood Pressure 122/33 L 134/35 L Blood Pressure [Ri ght FA] Blood Pressure [Ri ght Forearm] Blood Pressure [or thostatic lying] 134/41 L Blood Pressure [or thostatic sitting] 146/59 H Blood Pressure [or thostatic standing ] 145/47 H Pulse Oximetry 93 97 Oxygen Delivery Me thod 11/25/23 23:03 11/25/23 23:15 11/26/23 00:15 Temperature 97.1 F L 97.0 F L Pulse Rate 67 67 69 Pulse Rate [Pulse Oximeter] Pulse Rate [orthos tatic lying] Pulse Rate [orthos tatic sitting] Pulse Rate [orthos tatic standing] Respiratory Rate 20 20 Blood Pressure 119/49 L 122/41 L Blood Pressure [Ri ght FA] Blood Pressure [Ri ght Forearm] Blood Pressure [or thostatic lying] Blood Pressure [or thostatic sitting] Blood Pressure [or thostatic standing ] Pulse Oximetry 95 95 Oxygen Delivery Me thod 11/26/23 00:44 11/26/23 01:05 11/26/23 01:06 Temperature 97.0 F L 97.3 F L 97.2 F L Pulse Rate 69 67 68 Pulse Rate [Pulse Oximeter] Pulse Rate [orthos tatic lying] Pulse Rate [orthos tatic sitting] Pulse Rate [orthos tatic standing] Respiratory Rate 20 20 20 Blood Pressure 122/41 L 130/51 L 126/45 L Blood Pressure [Ri ght FA] Blood Pressure [Ri ght Forearm] Blood Pressure [or thostatic lying] Blood Pressure [or thostatic sitting] Blood Pressure [or thostatic standing ] Pulse Oximetry 93 91 93 Oxygen Delivery Ny thod 11/26/23 01:50 11/26/23 03:00 11/26/23 07:00 Temperature 96.6 F L 97.3 F L 97.9 F Pulse Rate 67 Pulse Rate [Pulse Oximeter] 67 69 Pulse Rate [orthos tatic lying] Pulse Rate [orthos tatic sitting] Pulse Rate [orthos tatic standing] Respiratory Rate 16 20 18 Blood Pressure 127/41 L Blood Pressure [Ri ght FA] 130/41 L 139/54 L Blood Pressure [Ri ght Forearm] Blood Pressure [or thostatic lying] Blood Pressure [or thostatic sitting] Blood Pressure [or thostatic standing ] Pulse Oximetry 95 93 96 Oxygen Delivery Me thod Room Air Room Air 11/26/23 07:45 11/26/23 13:39 11/26/23 13:58 Temperature 98.2 F 98.1 F Pulse Rate 65 70 Pulse Rate [Pulse Oximeter] Pulse Rate [orthos tatic lying] Pulse Rate [orthos tatic sitting] Pulse Rate [orthos tatic standing] Respiratory Rate 18 18 Blood Pressure 144/43 H 142/46 H Blood Pressure [Ri ght FA] Blood Pressure [Ri ght Forearm] Blood Pressure [or thostatic lying] Blood Pressure [or thostatic sitting] Blood Pressure [or thostatic standing ] Pulse Oximetry 99 99 Oxygen Delivery Me thod Documenting provider has reviewed patient's vital signs: yes Labs Labs: Laboratory Results - last 24 hr 11/25/23 11/25/23 11/25/23 14:40 16:26 16:29 WBC 5.44 RBC 1.63 L Hgb 5.3 L* Hct 18.2 L MCV 112 H MCH 33 MCHC 29 L RDW Coeff of Cece 20.2 H Plt Count 175 Neut % (Auto) 74.6 H Lymph % (Auto) 15.1 L Mcintosh % (Auto) 7.5 Eos % (Auto) 2.0 Baso % (Auto) 0.4 Neut # (Auto) 4.10 Lymph # (Auto) 0.80 L Mcintosh # (Auto) 0.40 Eos # (Auto) 0.11 Baso # (Auto) 0.02 Abs Immat Gran (auto) 0.02 Imm/Tot Granulo (auto) 0.4 Diff Slide Review Acceptable Review VBG pH 7.411 VBG pCO2 43 VBG pO2 68.5 H VBG HCO3 27 Sodium 139 Potassium 3.4 L Chloride 102 Carbon Dioxide 25 Anion Gap 12 BUN 34 H Creatinine 1.3 Estimated Creat Clear 29.08 Estimated GFR 43 Glucose 119 H Calcium 8.8 Iron 323 H TIBC 392 % Saturation 83 H Total Bilirubin 0.2 AST 19 ALT 14 Alkaline Phosphatase 52 Troponin I Total Protein 6.2 Albumin 4.0 Stool Occult Blood Positive A Lab Acknowledgement Blood Type Antibody Screen Crossmatch ([facility]) 11/25/23 11/25/23 11/25/23 16:40 16:56 18:21 WBC RBC Hgb Hct MCV MCH MCHC RDW Coeff of Cece Plt Count Neut % (Auto) Lymph % (Auto) Mcintosh % (Auto) Eos % (Auto) Baso % (Auto) Neut # (Auto) Lymph # (Auto) Mcintosh # (Auto) Eos # (Auto) Baso # (Auto) Abs Immat Gran (auto) Imm/Tot Granulo (auto) Diff Slide Review VBG pH VBG pCO2 VBG pO2 VBG HCO3 Sodium Potassium Chloride Carbon Dioxide Anion Gap BUN Creatinine Estimated Creat Clear Estimated GFR Glucose Calcium Iron TIBC % Saturation Total Bilirubin AST ALT Alkaline Phosphatase Troponin I < 0.01 L Total Protein Albumin Stool Occult Blood Lab Acknowledgement Test Added Blood Type A Positive Antibody Screen NEGATIVE Crossmatch ([facility]) See Detail 11/26/23 04:00 WBC RBC Hgb 7.0 L* Hct MCV MCH MCHC RDW Coeff of Cece Plt Count Neut % (Auto) Lymph % (Auto) Mcintosh % (Auto) Eos % (Auto) Baso % (Auto) Neut # (Auto) Lymph # (Auto) Mcintosh # (Auto) Eos # (Auto) Baso # (Auto) Abs Immat Gran (auto) Imm/Tot Granulo (auto) Diff Slide Review VBG pH VBG pCO2 VBG pO2 VBG HCO3 Sodium Potassium Chloride Carbon Dioxide Anion Gap BUN Creatinine Estimated Creat Clear Estimated GFR Glucose Calcium Iron TIBC % Saturation Total Bilirubin AST ALT Alkaline Phosphatase Troponin I Total Protein Albumin Stool Occult Blood Lab Acknowledgement Blood Type Antibody Screen Crossmatch ([facility])
[2023-11-26 17:49] LABS: Hemoglobin* 8.8 gm/dL (12.0-16.0)
--- NOTE | 2023-11-26 18:45 | PC.NURSE ---
Pt is pleasant and cooperative. 1 unit of PRBC given today.. no reaction noted. EGD was completed today.. no findings noted. Plan is to dx tomorrow and follow up with hematology outpatient. Great PO intake and appetite. Independent in the room as tolerated with RW. Calls appropriately. New IV was placed in R outer forearm. Call light within reach. Diana FARMER BSN
[2023-11-26] MEDS: ACETAMINOPHEN 325 MG TABLET PO (20:10)
[2023-11-26] MEDS: GABAPENTIN 300 MG CAPSULE 900 MG PO (21:05)
[2023-11-26] MEDS: allopurinoL 100 MG TABLET PO (21:05)
[2023-11-26] MEDS: MONTELUKAST 10 MG TABLET PO (21:05)
[2023-11-26] MEDS: SIMVASTATIN 40 MG TABLET PO (21:06)
[2023-11-27] VITALS (13 sets, daily range): BP systolic 134–164; BP diastolic 51–78; PULSE 62–74; RESP 16–20; TEMP 35.8–37.1; O2SAT 95–100
[2023-11-27] MEDS: ACETAMINOPHEN 325 MG TABLET PO ×3 (03:38→21:04)
[2023-11-27 06:50] LABS: Basophils Percent Auto 0.2 % (0.0-3.0); Eosinophils Percent Auto 2.4 % (0.0-7.0); Immature Granulocytes Pct Auto 0.2 %; Lymphocytes Percent Auto 21.7 % (20-44); Mean Corpuscular HGB Conc 31 gm/dL (32-36); Mean Corpuscular Hemoglobin 31 pg (26-34); Mean Corpuscular Volume 101 fL (80-100); Monocytes Percent Auto 7.3 % (0.0-11.0); Neutrophils Percent Auto 68.2 % (42.0-72.0); Platelet Count* 127 K/uL (140-440); Red Blood Count 2.38 m/uL (4.00-5.20); White Blood Count* 4.24 K/uL (4.50-11.00)
[2023-11-27 07:02] LABS: Hemoglobin* 7.4 gm/dL (12.0-16.0)
[2023-11-27 07:03] LABS: Slide Review Reflex No
[2023-11-27 07:09] LABS: Immature Reticulocyte Fraction 29.7 % (3.0-15.9); Reticulocyte Hemoglobin Equivi 23.9 pg (29.0-35.0); Reticulocyte Percent 8.2 % (0.5-2.0); Reticulocytes Absolute 0.19 # (0.03-0.08)
--- NOTE | 2023-11-27 08:10 | PC.NURSE ---
End of shift [id number] - Pt alert, oriented, cooperative during shift. Up independently in room to bathroom. Continent of bowel and bladder. VSS, afebrile, tolerating RA and regular diet. Pt reported pain in L leg and lowe back as 8/10, given medication per MAR with little improvement reported. Ice packs applied to site, little improvement reported. Pt requested attempting to sleep to help with pain. RN explained to use call light if pain is not relieved. Pt put try out person light around 0400 to report feeling of nasal congestion, puffy eyes, nausea, and pain in L leg and low back that remained at 8/10. Pt shared concerns related to a blood clot in her leg. RN palpated for pedal pulse, examined leg, and tested capillary refill. Pedal pulse present and 3+ in strength, skin warm and dry to the touch, and capillary refill < 3 seconds. Pt also shared concerns related to not being able to d/c on 11/27 if she took medication for pain. Pt refused melatonin, Ativan, Benadryl, and narcotic pain medications in discussion with RN. Telehealth MD contacted, provided order per JAN. Pt wished to try to sleep to see if condition would improve without pharmaceutical intervention. RN provided dominic jimmy for nausea with verbalized improvement and aromatherapy patch for sleep/relaxation with verbalized improvement. RN instructed pt to put try out person light if she was not able to tolerate condition and would consider pain medication. Pt did not turn try out person light for remainder of shift.
--- NOTE | 2023-11-27 08:22 | CRLHL7_ITS ---
For Patients: As a result of the 21st Century Cures Act, medical imaging exams and procedure reports are released immediately into your electronic medical record. You may view this report before your referring provider. If you have questions, please contact your health care provider. CLINICAL INFORMATION: Abdominal pain, gastrointestinal bleed. TECHNIQUE: Noncontrast, arterial, and venous phase contrast enhanced CT of the abdomen and pelvis were obtained. No enteric contrast was administered and therefore the study has decreased sensitivity for detection of bowel pathology. 3D and/or MIP angiographic reconstructions were performed on a separate independent workstation with concurrent supervision of the image post processing in order to further delineate the angiographic anatomy for accurate interpretation. Contrast: 110 mL of Isovue 370 intravenous contrast was injected uneventfully prior to image acquisition. Radiation Dose Estimate (Total Exam DLP): 4204 mGy-cm. COMPARISON: CT abdomen and pelvis 05/07/2016. FINDINGS : Evaluation For Active Hemorrhage: No evidence for extravasation on arterial and venous phase imaging to suggest active bleeding. CT Angiography Findings: Abdominal aorta: Scattered atherosclerotic disease.Normal in course and caliber. No aneurysm or dissection. Celiac axis: Patent. Superior mesenteric artery: Patent. Inferior mesenteric artery: Patent. LEFT Renal: Patent. RIGHT Renal: Patent. RIGHT lower extremity : Common iliac artery: Patent. Internal iliac artery: Patent. External iliac artery: Patent. Common femoral artery: Patent. LEFT lower extremity : Common iliac artery: Patent. Internal iliac artery: Patent. External iliac artery: Patent. Common femoral artery: Patent. Visceral Findings: Lower Chest: Lung Bases: No focal airspace opacities or pleural effusions. Stable 4 mm right middle lobe pulmonary nodule. Heart/Pericardium: Unremarkable. Abdomen/Pelvis: Liver: Hepatomegaly with steatosis. Gallbladder: Absent. Spleen: Unremarkable. Adrenal glands: Stable 1.5 cm left adrenal nodule most likely representing adenoma. Kidneys: Enhance symmetrically without hydronephrosis. Stable appearing left parapelvic cysts. Pancreas: Unremarkable. Lymph nodes: No retroperitoneal, mesenteric, inguinal, or pelvic adenopathy by CT criteria. Bowel: Small hiatal hernia. No bowel obstruction. Colonic diverticulosis. Normal appendix in the right lower quadrant. Urinary bladder: Limited evaluation due to underdistention. No gross pathology. Reproductive structures: Status post hysterectomy. No abdominal/pelvis ascites or free intraperitoneal air. Musculoskeletal: Visualized osseous structures demonstrate diffuse degenerative changes. IMPRESSION: 1. No evidence of active gastrointestinal bleeding. 2. No acute findings in the abdomen and pelvis. 3. Hepatomegaly with steatosis. 4. Stable 1.5 cm left adrenal nodule most likely representing adenoma. 5. Small hiatal hernia. 6. Colonic diverticulosis. Please note that all CT scans at this facility use dose modulation, iterative reconstruction, and/or weight-based dosing when appropriate to reduce radiation dose to as low as reasonably achievable. Dictated by Oskar Andrade MD @ 11/27/2023 1:12:46 PM (Electronically Signed)
[2023-11-27] MEDS: glipiZIDE XL 5 MG TAB 10 MG PO (08:30)
[2023-11-27] MEDS: POTASSIUM BICARB 25 MEQ EFFERVESCENT TAB 50 MEQ PO (10:57)
[2023-11-27] MEDS: PANTOPRAZOLE SODIUM 40 MG INJ 20 MG IVP ×2 (10:58→21:07)
[2023-11-27] MEDS: allopurinoL 100 MG TABLET 200 MG PO (10:59)
[2023-11-27] MEDS: LOSARTAN POTASSIUM 50 MG TABLET PO (10:59)
[2023-11-27] MEDS: GABAPENTIN 300 MG CAPSULE 600 MG PO (11:00)
[2023-11-27] MEDS: LORATADINE 10 MG TABLET PO (11:01)
[2023-11-27] MEDS: METOPROLOL TARTRATE 25 MG TABLET 12.5 MG PO ×2 (11:01→21:07)
[2023-11-27] MEDS: FUROSEMIDE 10 MG/ML inj 20 MG IVP (11:02)
[2023-11-27] MEDS: SODIUM CHLORIDE 0.9 % (FLUSH) 10 ML SYRINGE 5 ML IVF ×2 (11:03→21:08)
[2023-11-27 14:41] LABS: Basophils Absolute Auto 0.02 K/uL (0.00-0.30); Basophils Percent Auto 0.4 % (0.0-3.0); Eosinophils Absolute Auto 0.08 K/uL (0.00-0.50); Eosinophils Percent Auto 1.7 % (0.0-7.0); Hematocrit 29.7 % (33.0-51.0); Hemoglobin* 9.3 gm/dL (12.0-16.0); Immature Granulocytes Abs Auto 0.03 K/uL (0.00-0.30); Immature Granulocytes Pct Auto 0.6 %; Lymphocytes Percent Auto 17.8 % (20-44); Mean Corpuscular HGB Conc 31 gm/dL (32-36); Mean Corpuscular Hemoglobin 31 pg (26-34); Mean Corpuscular Volume 98 fL (80-100); Monocytes Percent Auto 7.4 % (0.0-11.0); Neutrophils Percent Auto 72.1 % (42.0-72.0); Platelet Count* 142 K/uL (140-440); RDW Coefficient of Variation % 22.7 % (11.5-15.5); Red Blood Count 3.03 m/uL (4.00-5.20); White Blood Count* 4.72 K/uL (4.50-11.00)
[2023-11-27 14:46] LABS: Slide Review Reflex No
[2023-11-27 14:54] LABS: Chloride* 105 mmol/L (96-114); Sodium* 141 mmol/L (135-149)
[2023-11-27 14:55] LABS: Potassium* 4.1 mmol/L (3.6-5.1)
[2023-11-27 14:57] LABS: Anion Gap 9 mEq/L (7-15); Carbon Dioxide* 27 mmol/L (20-32); Creatinine* 1.1 mg/dL (0.5-1.5); Est. Creatinine Clearance* 34.37; Estimated Glomerular Filt Rate 53 ml/min
[2023-11-27 14:58] LABS: Blood Urea Nitrogen* 25 mg/dL (7-30); Calcium* 8.5 mg/dL (8.4-10.6); Glucose* 137 mg/dL (60-115)
--- NOTE | 2023-11-27 15:26 | PM.IMPN1 ---
Progress Note: A&P Assessment and plan (1) Iron deficiency anemia: Problem details: Longstanding anemia including iron deficiency anemia in the past. Now with ongoing progressive anemia and normal and elevated iron indices. I suspect ongoing bleeding as the cause of her anemia. EGD is normal. She may need evaluation for small-bowel hemorrhage. she has foul-smelling diarrhea stool that is a dark greenish color with some maroonish staining to the water. Transfuse 1 more unit of blood. I have held her oral iron to better reveal what is happening with her GI bleeding. Status: Chronic (2) Gastrointestinal bleeding: Problem details: Normal EGD. Normal colonoscopy 2 years ago. Suspect small-bowel hemorrhage. Continue to monitor for evidence of bleeding overnight. Dark greenish diarrhea stool with maroonish discoloration to the toilet water. Suspect ongoing GI bleeding. Status: Acute (3) CKD stage 3 due to type 1 diabetes mellitus: Problem details: -creatinine 1.3, previously 1.1 -avoid nephrotoxic medications, hold HCTZ for now, continue to monitor Status: Chronic Plan 73-year-old female with progressive anemia. I favor GI bleeding over hemolysis and a small bowel source of GI bleeding more likely. Continue in hospital for another night of monitoring. May need transfer for gastroenterology evaluation and treatment. Time Spent With Patient Total time spent: Total time spent today is 45 minutes, 30 minutes in coordination of care discussing with patient and other providers ongoing evaluation management of anemia and GI Subjective Date Seen: 11/27/23 Interval history: 49-year-old female admitted to the hospital with lightheadedness fatigue weakness and dyspnea for last few days. She went to clinic where she was found to have a hemoglobin of 5.8. She was referred to the hospital for evaluation and treatment. She has had a longstanding history of anemia and treatment for anemia. She has been seen by Hematology at [facility] where she was diagnosed with iron deficiency anemia. She has received previous intravenous iron trip therapy and is on chronic oral iron therapy. In July her hemoglobin was 10.7. She sustained a left femur fracture September 2023 and her hemoglobin dropped to 6.2. She did receive 1 unit of blood cells and hemoglobin improved to 8.2. At follow-up in clinic her hemoglobin was 10.2 She reports occasional episodes of rectal bleeding. She reports she has perianal skin tags that she thinks adequate source of this. Her last colonoscopy was 07/04/2021 with normal biopsies and a recommendation to repeat in 10 years. She also had a normal EGD in 2016. Other than occasional rectal bleeding she has not had any other evidence of bleeding. She does report ongoing black stools which she attributes to her chronic iron therapy. Notably she has had relatively normal iron studies over the past year. 07/31/2023 she had a hemoglobin of 11.0 with other normal indices and iron level of 89 iron binding of 343 and an iron saturation of 26, all normal. her ferritin level at that time was elevated at 203. On admission on November 25 her iron was 323, iron binding 392 and% saturation was 83%. Both iron and % saturation were significantly above normal range. since admission she has received 3 units of packed red cells. Her hemoglobin went from 5.3 on admission to 7.0 after 2 units. She received 1 more unit and hemoglobin went to 8.8 last night. This morning the hemoglobin is 7.4 she has a vigorous reticulocytosis with an absolute retake count of 0.19, % retic 8.2 and retic hemoglobin equivalent of 23.9 and immature retic fraction of 29.7. This morning she reports fatigue and malaise. She feels a little short of breath and edematous. Exam Narrative: Exam Narrative: She is alert and appears in no distress. Respirations are clear to auscultation except for a rare basilar crackle. Cardiovascular: S1, S2, 2/6 systolic murmur. No gallop or rub. Abdomen is soft with mild diffuse tenderness. No mass. Extremities without obvious deformity or trauma or swelling Const: Vital Signs, click to edit/add: Vital Signs - 24 hr 11/26/23 16:55 11/26/23 17:30 11/26/23 19:00 Temperature 98.1 F 98.2 F 96.9 F L Pulse Rate 68 90 Pulse Rate [Pulse Oximeter] 77 Respiratory Rate 18 18 16 Blood Pressure 140/40 H 130/40 L Blood Pressure [Ri ght FA] 143/53 H Pulse Oximetry 99 98 96 Oxygen Delivery Me thod Room Air 11/27/23 03:30 11/27/23 08:36 11/27/23 11:44 Temperature 96.5 F L 98.3 F 97.8 F Pulse Rate 66 Pulse Rate [Pulse Oximeter] 63 73 Respiratory Rate 20 18 18 Blood Pressure 161/53 H Blood Pressure [Ri ght FA] 146/61 H 164/63 H Pulse Oximetry 97 98 100 Oxygen Delivery Me thod Room Air Room Air 11/27/23 12:01 11/27/23 13:01 11/27/23 14:05 Temperature 98.1 F 98.8 F 98.4 F Pulse Rate 68 72 70 Pulse Rate [Pulse Oximeter] Respiratory Rate 18 16 18 Blood Pressure 142/56 H 147/53 H 145/60 H Blood Pressure [Ri ght FA] Pulse Oximetry 98 96 Oxygen Delivery Me thod Documenting provider has reviewed patient's vital signs: yes Labs Labs: Laboratory Results - last 24 hr 11/25/23 11/26/23 11/27/23 16:56 17:38 05:51 WBC 4.24 L RBC 2.38 L Hgb 8.8 L 7.4 L* Hct 24.0 L MCV 101 H MCH 31 MCHC 31 L RDW Coeff of Cece 24.0 H Plt Count 127 L Neut % (Auto) 68.2 Lymph % (Auto) 21.7 [place] % (Auto) 7.3 Eos % (Auto) 2.4 Baso % (Auto) 0.2 Neut # (Auto) 2.90 Lymph # (Auto) 0.90 [place] # (Auto) 0.30 Eos # (Auto) 0.10 Baso # (Auto) 0.00 Abs Immat Gran (auto) 0.00 Imm/Tot Granulo (auto) 0.2 Absolute Retic 0.19 H Percent Retic 8.2 H Immature Retic Fraction 29.7 H Retic Hgb Equivalent 23.9 L Sodium Potassium Chloride Carbon Dioxide Anion Gap BUN Creatinine Estimated Creat Clear Estimated GFR Glucose Calcium Blood Type A Positive Antibody Screen NEGATIVE Crossmatch (G) See Detail 11/27/23 14:32 WBC 4.72 RBC 3.03 L Hgb 9.3 L Hct 29.7 L MCV 98 MCH 31 MCHC 31 L RDW Coeff of Cece 22.7 H Plt Count 142 Neut % (Auto) 72.1 H Lymph % (Auto) 17.8 L [place] % (Auto) 7.4 Eos % (Auto) 1.7 Baso % (Auto) 0.4 Neut # (Auto) 3.40 Lymph # (Auto) 0.80 L [place] # (Auto) 0.30 Eos # (Auto) 0.08 Baso # (Auto) 0.02 Abs Immat Gran (auto) 0.03 Imm/Tot Granulo (auto) 0.6 Absolute Retic Percent Retic Immature Retic Fraction Retic Hgb Equivalent Sodium 141 Potassium 4.1 Chloride 105 Carbon Dioxide 27 Anion Gap 9 BUN 25 Creatinine 1.1 Estimated Creat Clear 34.37 Estimated GFR 53 Glucose 137 H Calcium 8.5 Blood Type Antibody Screen Crossmatch ([facility])
--- NOTE | 2023-11-27 19:49 | PC.NURSE ---
shift note: vss stable. pt up indept to bsc/toilet. pt had 3 lg mushy sour smelling green stools. Dr. Patel updated on pt's status. 1 unit of PRB infused. IV patent. pt up amb in [place].
[2023-11-27] MEDS: MELATONIN 3 MG TABLET PO (21:05)
[2023-11-27] MEDS: GABAPENTIN 300 MG CAPSULE 900 MG PO (21:06)
[2023-11-27] MEDS: allopurinoL 100 MG TABLET PO (21:06)
[2023-11-27] MEDS: SIMVASTATIN 40 MG TABLET PO (21:07)
[2023-11-27] MEDS: MONTELUKAST 10 MG TABLET PO (21:07)
[2023-11-27 22:39] LABS: Hemoglobin* 8.7 gm/dL (12.0-16.0)
[2023-11-28] VITALS (7 sets, daily range): BP systolic 111–144; BP diastolic 48–63; PULSE 60–74; RESP 16–20; TEMP 36.4–36.8; O2SAT 94–98
[2023-11-28 05:24] LABS: Basophils Percent Auto 0.3 % (0.0-3.0); Eosinophils Percent Auto 3.8 % (0.0-7.0); Hematocrit 27.8 % (33.0-51.0); Hemoglobin* 8.5 gm/dL (12.0-16.0); Immature Granulocytes Pct Auto 0.3 %; Lymphocytes Percent Auto 26.8 % (20-44); Mean Corpuscular HGB Conc 31 gm/dL (32-36); Mean Corpuscular Hemoglobin 31 pg (26-34); Mean Corpuscular Volume 100 fL (80-100); Monocytes Percent Auto 9.6 % (0.0-11.0); Neutrophils Percent Auto 59.2 % (42.0-72.0); Platelet Count* 123 K/uL (140-440); RDW Coefficient of Variation % 23.3 % (11.5-15.5); Red Blood Count 2.78 m/uL (4.00-5.20); White Blood Count* 3.96 K/uL (4.50-11.00)
[2023-11-28 05:26] LABS: Slide Review Reflex No
[2023-11-28 05:41] LABS: Chloride* 108 mmol/L (96-114); Sodium* 142 mmol/L (135-149)
[2023-11-28 05:42] LABS: Potassium* 3.8 mmol/L (3.6-5.1)
[2023-11-28 05:44] LABS: Creatinine* 1.1 mg/dL (0.5-1.5); Est. Creatinine Clearance* 34.37; Estimated Glomerular Filt Rate 53 ml/min
[2023-11-28 05:45] LABS: Anion Gap 9 mEq/L (7-15); Blood Urea Nitrogen* 25 mg/dL (7-30); Calcium* 8.3 mg/dL (8.4-10.6); Carbon Dioxide* 25 mmol/L (20-32); Glucose* 122 mg/dL (60-115)
--- NOTE | 2023-11-28 07:40 | PC.NURSE ---
Pt alert and oriented x3. afebrile. Pt reports 7/10 pain in left leg/hip with movement and 2/10 at rest, pain managed with PRN medications. Pt is up SBA/ind in room. Pt slept throughout most of night, night uneventful.
[2023-11-28] MEDS: allopurinoL 100 MG TABLET 200 MG PO (09:04)
[2023-11-28] MEDS: LOSARTAN POTASSIUM 50 MG TABLET PO (09:04)
[2023-11-28] MEDS: METOPROLOL TARTRATE 25 MG TABLET 12.5 MG PO ×2 (09:04→21:22)
[2023-11-28] MEDS: glipiZIDE XL 5 MG TAB 10 MG PO (09:05)
[2023-11-28] MEDS: ACETAMINOPHEN 325 MG TABLET PO ×2 (09:06→16:49)
[2023-11-28] MEDS: GABAPENTIN 300 MG CAPSULE 600 MG PO (09:08)
[2023-11-28] MEDS: LORATADINE 10 MG TABLET PO (09:08)
[2023-11-28] MEDS: PANTOPRAZOLE SODIUM 40 MG INJ 20 MG IVP ×2 (09:10→21:22)
[2023-11-28] MEDS: SODIUM CHLORIDE 0.9 % (FLUSH) 10 ML SYRINGE 5 ML IVF ×2 (09:11→21:23)
--- NOTE | 2023-11-28 16:49 | PM.IMPN1 ---
Progress Note: A&P Assessment and plan (1) Iron deficiency anemia: Problem details: - Longstanding anemia including iron deficiency anemia in the past. Now with ongoing progressive anemia and normal and elevated iron indices - concerning for ongoing bleeding, reassuring EGD on 11/26 - consider GI f/u for small capsule endoscopy Status: Chronic (2) Gastrointestinal bleeding: Problem details: - Normal EGD. Normal colonoscopy 2 years ago. Suspect small-bowel hemorrhage. Continue to monitor for evidence of bleeding overnight. Dark greenish diarrhea stool with maroonish discoloration to the toilet water. Suspect ongoing GI bleeding. Status: Acute (3) CKD stage 3 due to type 1 diabetes mellitus: Problem details: -creatinine 1.3, previously 1.1 -avoid nephrotoxic medications, hold HCTZ for now, continue to monitor Status: Chronic Plan - per above - will confirm Hgb stability for one more day, discuss dispo (possible close outpatient f/u with GI given inability to transfer at this time) tomorrow Subjective Date Seen: 11/28/23 Interval history: Kina is a pleasant 73-year-old female who presented to the hospital on 11/25 for fatigue, dizziness, weakness; found to have a hemoglobin of <6. Since admission, she has received 3 units of packed red cells, current hemoglobin is 8.5. Continues to have intermittent blood in stools (on admission, also noted melena chronically, likely related to chronic iron supplementation). Reassuring colonoscopy in 2020, reassuring EGD 2 days ago. Notably she has had relatively normal iron studies over the past year. 07/31/2023 she had a hemoglobin of 11.0 with other normal indices and iron level of 89 iron binding of 343 and an iron saturation of 26, all normal. her ferritin level at that time was elevated at 203. On admission on November 25 her iron was 323, iron binding 392 and% saturation was 83%. Both iron and % saturation were significantly above normal range. She has a vigorous reticulocytosis with an absolute retake count of 0.19, % retic 8.2 and retic hemoglobin equivalent of 23.9 and immature retic fraction of 29.7. This morning, Kina continues to feel little better, she is not yet back to baseline. She is not taking excessive supplementation of vitamin-C or zinc. She has seen Hematology as an outpatient for a chronic history of anemia (notably, hemoglobin after recent femur surgery was <7). She never had a capsule endoscopy. Exam Narrative: Exam Narrative: GEN: Alert and oriented, nontoxic and speaking in full sentences HEENT: Mild pallor, EOMIs bilaterally, no scleral icterus CV: RRR, + systolic murmur without concerning features R: LCTA bilaterally without concerning wheezing, rales, or rhonchi Ab: Soft, tolerates exam Ext: wwp, trace BLE edema Skin: No concerning skin lesions or rashes on exposed skin Neuro: Nonfocal Psych: Appropriate Const: Vital Signs, click to edit/add: Vital Signs - 24 hr 11/27/23 21:10 11/27/23 22:50 11/27/23 22:50 Temperature 98.3 F 98.3 F Pulse Rate Pulse Rate [Pulse Oximeter] 69 67 Respiratory Rate 18 18 16 Blood Pressure [Ri ght FA] 134/65 134/51 L Pulse Oximetry 95 96 Oxygen Delivery Me thod Room Air Room Air 11/28/23 00:09 11/28/23 03:00 11/28/23 07:00 Temperature 98.2 F Pulse Rate 64 Pulse Rate [Pulse Oximeter] 60 65 Respiratory Rate 16 16 Blood Pressure [Ri ght FA] 111/51 L Pulse Oximetry 94 Oxygen Delivery Me thod Room Air 11/28/23 08:09 Temperature 98 F Pulse Rate Pulse Rate [Pulse Oximeter] 65 Respiratory Rate 16 Blood Pressure [Ri ght FA] 131/63 Pulse Oximetry 98 Oxygen Delivery Me thod Room Air Labs Labs: Laboratory Results - last 24 hr 11/25/23 11/27/23 11/28/23 16:56 22:20 04:48 WBC 3.96 L RBC 2.78 L Hgb 8.7 L 8.5 L Hct 27.8 L MCV 100 MCH 31 MCHC 31 L RDW Coeff of Cece 23.3 H Plt Count 123 L Neut % (Auto) 59.2 Lymph % (Auto) 26.8 [place] % (Auto) 9.6 Eos % (Auto) 3.8 Baso % (Auto) 0.3 Neut # (Auto) 2.30 Lymph # (Auto) 1.10 [place] # (Auto) 0.40 Eos # (Auto) 0.20 Baso # (Auto) 0.00 Abs Immat Gran (auto) 0.00 Imm/Tot Granulo (auto) 0.3 Sodium 142 Potassium 3.8 Chloride 108 Carbon Dioxide 25 Anion Gap 9 BUN 25 Creatinine 1.1 Estimated Creat Clear 34.37 Estimated GFR 53 Glucose 122 H Calcium 8.3 L Crossmatch ([facility]) See Detail
--- NOTE | 2023-11-28 18:54 | PC.NURSE ---
shift note; pt up indept. pt medicated with prn tylenol for rt l/e with relief. vss stable.
[2023-11-28] MEDS: allopurinoL 100 MG TABLET PO (21:21)
[2023-11-28] MEDS: SIMVASTATIN 40 MG TABLET PO (21:21)
[2023-11-28] MEDS: MONTELUKAST 10 MG TABLET PO (21:22)
[2023-11-28] MEDS: GABAPENTIN 300 MG CAPSULE 900 MG PO (21:22)
[2023-11-28] MEDS: MELATONIN 3 MG TABLET PO (21:25)
[2023-11-29] MEDS: ACETAMINOPHEN 325 MG TABLET PO ×3 (01:03→15:37)
[2023-11-29] MEDS: OXYCODONE 5 MG TABLET PO (01:03)
[2023-11-29 04:40] VITALS: BP 131/56; PULSE 67; RESP 16; TEMP 36.9; O2SAT 97
[2023-11-29 06:50] LABS: Basophils Percent Auto 0.5 % (0.0-3.0); Eosinophils Percent Auto 4.2 % (0.0-7.0); Hematocrit 28.4 % (33.0-51.0); Hemoglobin* 8.7 gm/dL (12.0-16.0); Lymphocytes Percent Auto 22.9 % (20-44); Mean Corpuscular HGB Conc 31 gm/dL (32-36); Mean Corpuscular Hemoglobin 31 pg (26-34); Mean Corpuscular Volume 100 fL (80-100); Monocytes Percent Auto 7.1 % (0.0-11.0); Neutrophils Percent Auto 65.3 % (42.0-72.0); Platelet Count* 140 K/uL (140-440); RDW Coefficient of Variation % 21.4 % (11.5-15.5); Red Blood Count 2.85 m/uL (4.00-5.20); White Blood Count* 4.24 K/uL (4.50-11.00)
[2023-11-29 06:59] LABS: Slide Review Reflex No
[2023-11-29 07:00] VITALS: BP 125/45; PULSE 62; RESP 18; TEMP 36.8; O2SAT 96
[2023-11-29 07:19] LABS: Albumin* 3.6 g/dL (3.3-5.0); Chloride* 108 mmol/L (96-114); Potassium* 3.8 mmol/L (3.6-5.1); Sodium* 142 mmol/L (135-149)
[2023-11-29 07:21] LABS: Aspartate Amino Transferase* 20 U/L (12-35); Bilirubin Total* 0.4 mg/dL (0.1-1.5); Carbon Dioxide* 25 mmol/L (20-32); Est. Creatinine Clearance* 37.81; Estimated Glomerular Filt Rate 59 ml/min
[2023-11-29 07:22] LABS: Alanine Aminotransferase* 14 U/L (4-35); Alkaline Phosphatase* 49 U/L (40-150); Anion Gap 9 mEq/L (7-15); Blood Urea Nitrogen* 29 mg/dL (7-30); Calcium* 8.6 mg/dL (8.4-10.6); Glucose* 118 mg/dL (60-115)
--- NOTE | 2023-11-29 07:59 | PC.NURSE ---
Pt alert and oriented x3. Afebrile. Pt reports 9/10 pain in left leg/hip with some radiation to groin, managed with PRN medications. Pt is up ad lisa in room, voiding, no bm overnight. Pt slept throughout most of night.
[2023-11-29] MEDS: glipiZIDE XL 5 MG TAB 10 MG PO (09:02)
[2023-11-29] MEDS: METOPROLOL TARTRATE 25 MG TABLET 12.5 MG PO (09:03)
[2023-11-29] MEDS: allopurinoL 100 MG TABLET 200 MG PO (09:03)
[2023-11-29] MEDS: LOSARTAN POTASSIUM 50 MG TABLET PO (09:05)
[2023-11-29] MEDS: LORATADINE 10 MG TABLET PO (09:05)
[2023-11-29] MEDS: GABAPENTIN 300 MG CAPSULE 600 MG PO (09:25)
--- NOTE | 2023-11-29 10:11 | CRLHL7_ITS ---
For Patients: As a result of the Cures Act, medical imaging exams and procedure reports are released immediately into your electronic medical record. You may view this report before your referring provider. If you have questions, please contact your health care provider. INDICATION: Pain, postop TECHNIQUE: X-ray left femur, two views COMPARISON: X-ray left femur 08/18/2023 FINDINGS: Interval postsurgical changes with plate and screw fixation of the proximal to mid femur. Periosteal reaction is present. Alignment appears unremarkable. Overlying soft tissues unremarkable. Stable knee arthroplasty. IMPRESSION: Interval postsurgical changes of internal fixation of the proximal to mid femur. Otherwise no acute abnormality. Dictated by Alyson Minaya MD @ 11/29/2023 1:58:54 PM Dictated by: Alyson Minaya MD @ 11/29/2023 13:59:03 (Electronically Signed)
--- NOTE | 2023-11-29 11:35 | CRLHL7_ITS ---
For Patients: As a result of the Century Cures Act, medical imaging exams and procedure reports are released immediately into your electronic medical record. You may view this report before your referring provider. If you have questions, please contact your health care provider. INDICATION: Postop pain TECHNIQUE: X-ray pelvis, one view COMPARISON: X-ray femur 08/18/2023 FINDINGS: There are partially visualized postsurgical changes of the left femur. Negative for acute fracture or dislocation. Pelvic ring is intact. Phleboliths within the pelvis. Overlying soft tissues unremarkable. IMPRESSION: No acute abnormality. Dictated by Alyson Minaya MD @ 11/29/2023 1:49:25 PM (Electronically Signed)
[2023-11-29 15:00] VITALS: BP 149/61; PULSE 70; RESP 16; TEMP 36.8; O2SAT 98
--- NOTE | 2023-11-29 15:00 | PC.NURSE ---
shift note: pt up indept with walker. pt rating lt l/e and 10 with activity. pp+ bilat. LS clr. Vss stable. Dr. Fontaine updated on increase in lt l/e. Xray ordered
--- NOTE | 2023-11-29 16:46 | PM.DS1 ---
DS: Providers Provider Date Seen: 11/29/23 Date of admission: 11/26/23 09:05 Primary care physician: Myla Nassar DO Admitting Clinician: Abby Arzola MD Consults: 11/26/23 06:00 Consult to Physician [CONS] Routine Comment: anemia, ?bleed. EGD planned for 11/26 Consulting Provider: Tiffanie Mckeon Has provider been notified: Yes Attending Physician on discharge: Laurie Fontaine MD Date of Discharge: 11/29/23 DS: Diagnosis Discharge Diagnosis (1) Iron deficiency anemia: Status: Chronic Problem details: - Longstanding anemia including iron deficiency anemia in the past. Now with ongoing progressive anemia and normal and elevated iron indices - received 3U PRBCs during stay - concerning for ongoing bleeding, reassuring EGD on 11/26 - consider GI f/u for small capsule endoscopy (2) CKD stage 3 due to type 1 diabetes mellitus: Status: Chronic Problem details: -creatinine 1.3 on admission, back to baseline creatinine of 1.0 on discharge 11/29 (3) Gastrointestinal bleeding: Status: Acute Problem details: - Normal EGD during stay - Normal colonoscopy 2 years ago, suspect small-bowel hemorrhage - given stability after transfusion, recommend close outpatient f/u with GI, reviewed return precautions (4) Type 2 diabetes mellitus: Status: Chronic Problem details: -most recent A1c 6.2 (May 2023) DS: Summary Hospital Course Hospital Course: Kina is a pleasant 73-year-old female who presented to the hospital on 11/25 for fatigue, dizziness, weakness; found to have a hemoglobin of <6. Since admission, she has received 3 units of packed red cells, Hemoglobin improved and remained stable at 8.7 on day of discharge. Reassuring colonoscopy in 2020, reassuring EGD 2 days ago. She has seen Hematology in the past (R[facility] Isela Velazquez at [facility]), will f/u with their team upon discharge, in addition to [facility] to discuss any further workup. Notable comorbidities above with details. Status at Discharge Functional status at discharge: independent ambulation Overall status at discharge: patient is progressing back to baseline Time Spent with Patient Time attestation: Total time spent providing and/or coordinating discharge services: Time spent: Greater than 30 minutes Specific discharge activities: Medication reconciliation, discharge planning Exam Narrative: Exam Narrative: GEN: Alert and oriented, nontoxic and sitting comfortably in bed HEENT: Mild pallor, EOMIs bilaterally, no scleral icterus CV: RRR, + systolic murmur without concerning features R: LCTA bilaterally without concerning wheezing, rales, or rhonchi Ab: Soft, no ttp Skin: No concerning skin lesions or rashes on exposed skin Neuro: Nonfocal Psych: Appropriate Const: Vital Signs, click to edit/add: Vital Signs - 24 hr 11/28/23 21:20 11/29/23 04:40 11/29/23 07:00 Temperature 97.6 F 98.5 F 98.3 F Pulse Rate [Pulse Oximeter] 66 67 62 Respiratory Rate 16 16 18 Blood Pressure [Ri ght FA] 144/48 H 131/56 L 125/45 L Pulse Oximetry 96 97 96 Oxygen Delivery Me thod Room Air Room Air Room Air DS: Data Data Completed and Pending Labs on day of discharge: Labs from last 24 hours 11/29/23 05:44 WBC 4.24 L RBC 2.85 L Hgb 8.7 L Hct 28.4 L MCV 100 MCH 31 MCHC 31 L RDW Coeff of Cece 21.4 H Plt Count 140 Neut % (Auto) 65.3 Lymph % (Auto) 22.9 [place] % (Auto) 7.1 Eos % (Auto) 4.2 Baso % (Auto) 0.5 Neut # (Auto) 2.80 Lymph # (Auto) 1.00 [place] # (Auto) 0.30 Eos # (Auto) 0.20 Baso # (Auto) 0.00 Abs Immat Gran (auto) 0.00 Imm/Tot Granulo (auto) 0.0 Sodium 142 Potassium 3.8 Chloride 108 Carbon Dioxide 25 Anion Gap 9 BUN 29 Creatinine 1.0 Estimated Creat Clear 37.81 Estimated GFR 59 Glucose 118 H Calcium 8.6 Total Bilirubin 0.4 AST 20 ALT 14 Alkaline Phosphatase 49 Total Protein 6.0 Albumin 3.6 Discharge Plan Discharge Disposition: Home, Self-Care Date of Admission: 11/26/23 09:05 Attending Provider on Discharge: Laurie Fontaine Consulting Providers: Tiffanie Mckeon Primary Care Provider: Myla Nassar Condition: Improved Anticipated Discharge Date/Time: 11/29/23 15:10 Discharge Medications: New omeprazole 20 mg Capsule,Delayed Release(Dr/Ec) 20 mg PO BID Qty: 60 0RF Continued allopurinol 100 mg tablet 100 - 200 mg PO Q12H ampicillin 500 mg capsule 2,000 mg PO ONCE Rx Instructions: take 2000mg once before dental procedures. celecoxib 100 mg capsule 100 mg PO BID PRN (Reason: pain) cyclobenzaprine 10 mg tablet 10 mg PO HS PRN Trulicity 1.5 mg/0.5 mL pen injector 1.5 mg subcut Q7D famotidine 20 mg tablet 20 mg PO BID ferrous sulfate [Feosol] 325 mg (65 mg iron) tablet 325 mg PO DAILY gabapentin 300 mg capsule 600 - 900 mg PO Q12H fluticasone propionate 50 mcg/actuation spray,suspension 2 spray INTRANASAL DAILY losartan 50 mg tablet 50 mg PO DAILY glipizide 10 mg tablet extended release 24hr 10 mg PO DAILY hydrochlorothiazide 25 mg tablet 25 mg PO DAILY loratadine [Claritin] 10 mg tablet 10 mg PO DAILY meclizine 25 mg tablet 25 mg PO TID PRN metoprolol tartrate 25 mg tablet 12.5 mg PO Q12H tramadol 50 mg tablet 50 mg PO BID PRN (Reason: pain) simvastatin 40 mg tablet 40 mg PO HS montelukast 10 mg tablet 10 mg PO HS polyethylene glycol 3350 [ClearLax] 17 gram/dose powder 17 g PO DAILY PRN acetaminophen 500 mg tablet 1,000 mg PO HS mecobalamin (vitamin B12) 1,000 mcg tablet,chewable 1,000 mcg PO DAILY magnesium 250 mg tablet 250 mg PO DAILY Held aspirin 81 mg capsule 81 mg PO DAILY Hold Instructions: Resume on 01/03/24. hold ASA until f/u with Hematology Discharge Orders: Discharge Order (Routine); Ordered 11/29/23 Ordered By: Laurie Fontaine Patient Education: Omeprazole (By mouth), Anemia (DC) Additional Instructions: Followup appointments with Dr. Nassar, Hematology and [facility]. If you have severe bleeding or signs/symptoms of severe anemia, you need to be seen again urgently. Hip and femur look great! Activity Level: Activity as Tolerated and No strenuous activity Discharge Diet: Regular Follow Up Appointments: Ada Diez MD [Referring] - (See Dr. Diez or partner (first available) at [facility] in the next 2-3 weeks for concern of GI bleed and discussion of further workup (Recently normal EGD, normal colonoscopy 2020) [facility] location- ) An Pineda MD [Staff Physician] - Rosa Isela Velazquez, ENGRAVER SET UP OPERATOR [Referring] - (See Rosa Isela (Hematology METAL CONTROL COORDINATOR in [place]) in 1-2 weeks for anemia followup. Clinic phone # [phone]) Myla Nassar DO [Primary Care Provider] - 12/09/23 11:00 am ([facility] for follow-up. ) Forms: [employer] Info Instructions
--- NOTE | 2023-11-29 17:32 | PC.NURSE ---
Discharge - Pt alert, oriented, cooperative. Rated pain as 6/10 with movement, managed with medication per MAR with pt tolerating pain. Pt expressed being eager to go home, RN asked if pt felt comfortable going home and pt responded I have to be. RN further questioned the pt regarding home setting and pt reporting have a few stairs at the entrance of her home, but felt as though she was capable of managing alone. Her biggest concern was for family holiday plans and not wanting to be disruptive to her family. VSS, afebrile, no report of SOB, dizziness, nausea. IV removed, catheter in place. Discharge education given with verbalized understanding. Paperwork signed, pt discharged to home with self at approximately 1700.
== END 2023-11-29 17:00 | disposition home or self-care (01) | DRG 812 ==
LOC: ED 17:40 → MEDSURG 18:10
PROVIDERS: Physician Assistant; Admitting Provider Family Medicine; Emergency Provider Family Medicine; PCP Family Medicine; Visit Provider Family Medicine
DX: D50.0 Iron deficiency anemia secondary to blood loss (chronic) (principal); K92.2 Gastrointestinal hemorrhage, unspecified; Z68.41 Body mass index [BMI] 40.0-44.9, adult; E10.22 Type 1 diabetes mellitus with diabetic chronic kidney disease; N18.30 Chronic kidney disease, stage 3 unspecified; I12.9 Hypertensive chronic kidney disease with stage 1 through stage 4 chronic kidney disease, or unspecified chronic kidney disease; Z79.84 Long term (current) use of oral hypoglycemic drugs; Z79.85 Long-term (current) use of injectable non-insulin antidiabetic drugs; E87.6 Hypokalemia; E66.9 Obesity, unspecified; E78.5 Hyperlipidemia, unspecified
CPT/HCPCS: 00731; 36415; 36430; 43239; 71045; 72170; 73552; 74174; 80048; 80053; 82270; 82803; 82962; 83540; 83550; 84484; 85018; 85025; 85027; 85045; 86850; 86900; 86901; 86922; 88305; 94761; 99100; 99284; 99285; G0378; A9270; C9113; J1940; J2704; P9016; Q9967

== ENCOUNTER 2024-05-05 09:45 | Outpatient (RCR) | payer OTHER, MEDICARE, BC, SELFPAY ==
--- NOTE | 2024-02-12 14:04 | PC.NURSE ---
Diagnosis: osteoporosis (M80.052A)
--- NOTE | 2024-02-16 14:05 | PC.NURSE ---
[facility] received orders for Kina to receive Evinity injections to treat her osteoporosis per [place] PA-C at [facility]. New orders process started and orders/provider notes reviewed by SINA Ramirez. Silvia noted that pt was due to have dental work her PA notes. RN called pt directly to understand the dental procedure plans. Kina reported that she is seeing an oral surgeon, Dr. Alejandro w/ [facility] [place] on 03/04/2024 in [place]. Pt relays that the tooth her bridge is connected to became loose and needed a cavity filled. In doing so, it was identified that she needed more work and because of the filling the bridge no longer fits. She will either need a root canal or an extraction w/ dental implant to replace the tooth. Pt's primary dentist is Denis Horne of [facility]. Of note, the PA process was also started on this medication which could take some time. We discussed waiting until after the oral surgeon consult to know what her next steps will be for her dental work. Pt agrees with that plan. She was given [facility] number to call with updates. RN called [place] PA-C and HAKAN on the nurse line with the above update. RN also requested lab orders to recheck calcium prior to the second two Evinity doses per the request of Silvia Moreira APRN.
== END 2024-09-02 23:59 | disposition home or self-care (01) ==
PROVIDERS: PCP Family Medicine; Visit Provider Family Medicine
DX: S72.8X2A Other fracture of left femur, initial encounter for closed fracture (principal); Z51.89 Encounter for other specified aftercare
CPT/HCPCS: 97110; 97112; 97116; 97140; 97162; 97164; 97530

== ENCOUNTER 2024-05-17 10:28 | Outpatient (CLI) | payer MEDICARE, BC, SELFPAY | END 2024-05-17 10:29 | disposition home or self-care (01) | LOC: INJ CL 10:30 | PROVIDERS: PCP Family Medicine; Visit Provider Family Medicine | DX: M54.16 Radiculopathy, lumbar region (principal); M51.36 Other intervertebral disc degeneration, lumbar region | CPT/HCPCS: 62323; J0702; Q9966 ==

== ENCOUNTER 2024-07-07 13:00 | Outpatient (RCR) | payer MEDICARE, BC, SELFPAY | END 2024-11-04 23:59 | disposition home or self-care (01) | PROVIDERS: PCP Family Medicine; Visit Provider Family Medicine | DX: M54.42 Lumbago with sciatica, left side (principal); G89.29 Other chronic pain; M54.16 Radiculopathy, lumbar region; Z51.89 Encounter for other specified aftercare | CPT/HCPCS: 97032; 97110; 97112; 97140; 97162 ==

== ENCOUNTER 2024-07-22 13:55 | Emergency (ER) | payer MEDICARE, BC, SELFPAY ==
[2024-07-22] VITALS (13 sets, daily range): BP systolic 108–160; BP diastolic 46–73; PULSE 60–77; RESP 12–20; TEMP 36.4–36.8; O2SAT 95–100; BMI 40.8
--- NOTE | 2024-07-22 15:08 | CRLHL7_ITS ---
For Patients: As a result of the Cures Act, medical imaging exams and procedure reports are released immediately into your electronic medical record. You may view this report before your referring provider. If you have questions, please contact your health care provider. INDICATION: Shortness of breath. Fatigue. COMPARISON: 11/25/2023 TECHNIQUE: 2 views. FINDINGS: Medical Devices: None. Lung Volumes: Adequate inspiration. No significant atelectasis. Lungs: Clear lungs. Pleura and Pleural spaces: No significant pleural effusion. No pneumothorax. Mediastinum: Normal cardiomediastinal silhouette. Bony Thorax and Soft Tissues: No significant incidental findings. Right upper quadrant cholecystectomy clips are noted incidentally. IMPRESSION: No acute findings. Dictated by Marco Claire MD @ 07/22/2024 3:53:29 PM (Electronically Signed)
[2024-07-22 15:30] LABS: Lactate* 1.6 mmol/L (0.5-1.9)
[2024-07-22 15:36] LABS: Basophils Percent Auto 0.5 % (0.0-3.0); Eosinophils Percent Auto 2.5 % (0.0-7.0); Hematocrit 21.1 % (33.0-51.0); Immature Granulocytes Pct Auto 0.5 %; Lymphocytes Percent Auto 25.2 % (20-44); Mean Corpuscular HGB Conc 31 gm/dL (32-36); Mean Corpuscular Hemoglobin 32 pg (26-34); Mean Corpuscular Volume 103 fL (80-100); Neutrophils Percent Auto 64.3 % (42.0-72.0); Platelet Count* 143 K/uL (140-440); RDW Coefficient of Variation % 16.2 % (11.5-15.5); Red Blood Count 2.05 m/uL (4.00-5.20); White Blood Count* 4.44 K/uL (4.50-11.00)
[2024-07-22 15:37] LABS: Hemoglobin* 6.6 gm/dL (12.0-16.0)
--- NOTE | 2024-07-22 15:39 | ED.NURSE ---
critical hemoglobin of 6.6, notified.
--- NOTE | 2024-07-22 16:05 | ED.GENADULT ---
HPI - General Adult General Chief complaint: Weakness Stated complaint: Low hemoglobin Time Seen by Provider: 07/22/24 14:53 Source: patient Mode of arrival: ambulatory Limitations: no limitations History of Present Illness HPI narrative: Patient is a 74-year-old female coming in today concerned about fatigue and feeling lightheaded. Patient states that for approximately 1 week she has had increased fatigue with minimal physical activity. She feels very lightheaded when she has to change positions specifically from going to a laying to a sitting or sitting to a standing position. Patient states that in the past she has had low hemoglobin and this is how she feels when her hemoglobin is too low. She denies chest or abdominal pain. She states that every now and then she feels slightly short of breath with this is not a daily problem. Patient states that she does have a history of recurrent anemia secondary to both iron deficiency and stage 3 kidney disease. However, she also states that she has noticed dark stools approximately 3 times in the last week. She did have a recent colonoscopy within the last couple of years which was normal. She denies any blood in her urine. She denies abdominal pain. Patient does have a history of gastritis, weaned herself off of her omeprazole sometime ago. She has also had a recent EGD- last October. She states that she has her next step is going to be to do a small capsule endoscopy. Upon further conversation, patient states that she recurrent we has dark stools and then she restart her omeprazole and her stools go back to normal. This, along with recurrent anemia that requires transfusion is why she is having all this GI workup done including, again, the recommendation for a capsule endoscopy. Related Data Home Medications ?Medication ?Instructions ?Recorded ?Confirmed allopurinol 100 mg tablet 100 - 200 mg PO Q12H 11/25/23 05/26/24 ampicillin 500 mg capsule 2,000 mg PO ONCE 11/25/23 05/26/24 aspirin 81 mg capsule 81 mg PO DAILY 11/25/23 05/26/24 celecoxib 100 mg capsule 100 mg PO BID PRN pain 11/25/23 05/26/24 cyclobenzaprine 10 mg tablet 10 mg PO HS PRN 11/25/23 05/26/24 dulaglutide 1.5 mg/0.5 mL 1.5 mg subcut Q7D 11/25/23 05/26/24 subcutaneous pen injector (Trulicity) famotidine 20 mg tablet 20 mg PO BID 11/25/23 05/26/24 ferrous sulfate 325 mg (65 mg 325 mg PO DAILY 11/25/23 05/26/24 iron) tablet (Feosol) fluticasone propionate 50 2 spray intranasal DAILY 11/25/23 05/26/24 mcg/actuation nasal spray,suspension gabapentin 300 mg capsule 600 - 900 mg PO Q12H 11/25/23 05/26/24 glipizide 10 mg tablet, extended 10 mg PO DAILY 11/25/23 05/26/24 release 24 hr hydrochlorothiazide 25 mg tablet 25 mg PO DAILY 11/25/23 05/26/24 loratadine 10 mg tablet (Claritin) 10 mg PO DAILY 11/25/23 05/26/24 losartan 50 mg tablet 50 mg PO DAILY 11/25/23 05/26/24 meclizine 25 mg tablet 25 mg PO TID PRN 11/25/23 05/26/24 metoprolol tartrate 25 mg tablet 12.5 mg PO Q12H 11/25/23 05/26/24 montelukast 10 mg tablet 10 mg PO HS 11/25/23 05/26/24 acetaminophen 500 mg tablet 1,000 mg PO HS 11/26/23 05/26/24 magnesium 250 mg tablet 250 mg PO DAILY 11/26/23 05/26/24 mecobalamin (vitamin B12) 1,000 1,000 mcg PO DAILY 11/26/23 05/26/24 mcg chewable tablet rosuvastatin 20 mg tablet 20 mg PO QPM 05/26/24 05/26/24 Previous Rx's ?Medication ?Instructions ?Recorded omeprazole 20 mg capsule,delayed 20 mg PO BID #60 caps 11/29/23 release Allergies Allergy/AdvReac Type Severity Reaction Status Date / Time acetaminophen [From Percocet] AdvReac Intermediate nausea and Verified 07/22/24 13:35 headache oxycodone [From Percocet] AdvReac Intermediate nausea and Verified 07/22/24 13:35 headache tramadol AdvReac Nausea Verified 07/22/24 13:35 Review of Systems Status of ROS: Reports: 10 or more systems reviewed and unremarkable except as noted in History and below [facility] Medical History Closed left femoral fracture ?S72.92XA - Unspecified fracture of left femur, initial encounter for closed fracture (ICD-10) Iron deficiency anemia ?D50.9 - Iron deficiency anemia, unspecified (ICD-10) Shortness of breath ?R06.02 - Shortness of breath (ICD-10) Gastrointestinal bleeding ?K92.2 - Gastrointestinal hemorrhage, unspecified (ICD-10) Gout ?M10.9 - Gout, unspecified (ICD-10) Chronic pain of left knee ?M25.562 - Pain in left knee (ICD-10) ?G89.29 - Other chronic pain (ICD-10) Lumbar radiculopathy ?M54.16 - Radiculopathy, lumbar region (ICD-10) CKD stage 3 due to type 1 diabetes mellitus ?E10.22 - Type 1 diabetes mellitus with diabetic chronic kidney disease (ICD-10) ?N18.30 - Chronic kidney disease, stage 3 unspecified (ICD-10) Spondylolisthesis, lumbar region ?M43.16 - Spondylolisthesis, lumbar region (ICD-10) Obesity ?E66.9 - Obesity, unspecified (ICD-10) Hyperlipidemia ?E78.5 - Hyperlipidemia, unspecified (ICD-10) Type 2 diabetes mellitus ?E11.9 - Type 2 diabetes mellitus without complications (ICD-10) Hypertension ?I10 - Essential (primary) hypertension (ICD-10) Surgical History History of total knee arthroplasty ?Z96.659 - Presence of unspecified artificial knee joint (ICD-10) Hx of cholecystectomy ?Z90.49 - Acquired absence of other specified parts of digestive tract (ICD-10) Social History What is your current living situation?: I presently have a place to live Problems where you live: no known problems Problems where you live details: none In the past 12 months, utilities in danger of being shut off: no In past 12 months, lack of transportation kept you from medical appts, meetings, work, or getting things needed for daily living: no In the past 12 mos, have been you worried that your food would run out before you had money to buy more?: never true In the past 12 mos, the food you bought just didn't last and you didn't have money to buy more?: never true Highest level of school completed/degree received: some college, no degree Smoking Status: Never smoker Do you use any of these nicotine containing products: None How often do you have a drink containing alcohol: never AUDIT-C Alcohol total score: 0 Non-prescribed substance use: denies use Caffeine: Yes (1 cup a day) How often does anyone, including family, friends and others, physically hurt you: never How often does anyone, including family, friends and others, insult or talk down to you: never How often does anyone, including family, friends and others, threaten you with harm: never How often does anyone, including family, friends and others, scream or curse at you: never service: No Exam Narrative: Exam Narrative: Well-nourished well-developed patient in no acute distress. Alert and oriented. Answers questions appropriately. Mood and affect are appropriate. Thoughts are goal oriented and rational. No tangential or magical thinking noted. Patient speaks in full sentences without needing to catch her breath. Patient does appear pale. HEENT: Normocephalic atraumatic. Pupils are equally round reactive to light. Extraocular muscles are intact. Conjunctivae are moist without any icterus noted, pale. Moist mucous membranes, pale. Posterior pharynx is normal. Neck is soft without any lymphadenopathy or thyromegaly. No masses are appreciated. Cardiovascular: Heart is regular rate and rhythm S1 and S2 are present without any murmurs. Lungs: Clear to auscultation bilaterally no wheezes rhonchi or rales are appreciated. Patient takes deep breaths without any discomfort. Abdomen: Soft and nontender nondistended with normal bowel sounds. Extremities: Bilateral lower extremities are without edema. Skin: Well perfused. Normal capillary refill parents Const: Vital Signs, click to edit/add: Vital Signs - 24 hr 07/22/24 14:08 07/22/24 15:39 07/22/24 17:37 Temperature 98.2 F 97.6 F Pulse Rate 68 Pulse Rate [Pulse Oximeter] 77 Pulse Rate [orthos tatic lying Blood Pressure Cuff] 60 Pulse Rate [orthos tatic sitting Bloo d Pressure Cuff] 74 Pulse Rate [orthos tatic standing Blo od Pressure Cuff] 76 Respiratory Rate 18 12 Blood Pressure 160/54 H Blood Pressure [Le ft arm] Blood Pressure [Ri ght Upper Arm] 127/69 Blood Pressure [or thostatic lying Le ft Arm] 123/46 L Blood Pressure [or thostatic sitting Right Arm] 127/55 L Blood Pressure [or thostatic standing Right Arm] 124/50 L Pulse Oximetry 98 97 Oxygen Delivery Me thod Room Air 07/22/24 17:37 07/22/24 18:14 07/22/24 18:31 Temperature 97.6 F 97.8 F 98 F Pulse Rate 69 68 Pulse Rate [Pulse Oximeter] 68 Pulse Rate [orthos tatic lying Blood Pressure Cuff] Pulse Rate [orthos tatic sitting Bloo d Pressure Cuff] Pulse Rate [orthos tatic standing Blo od Pressure Cuff] Respiratory Rate 12 12 16 Blood Pressure 121/65 132/50 L Blood Pressure [Le ft arm] 160/54 H Blood Pressure [Ri ght Upper Arm] Blood Pressure [or thostatic lying Le ft Arm] Blood Pressure [or thostatic sitting Right Arm] Blood Pressure [or thostatic standing Right Arm] Pulse Oximetry 97 96 95 Oxygen Delivery Me thod Room Air 07/22/24 19:01 07/22/24 19:30 07/22/24 20:16 Temperature 98.1 F 97.7 F 98.1 F Pulse Rate 70 72 68 Pulse Rate [Pulse Oximeter] Pulse Rate [orthos tatic lying Blood Pressure Cuff] Pulse Rate [orthos tatic sitting Bloo d Pressure Cuff] Pulse Rate [orthos tatic standing Blo od Pressure Cuff] Respiratory Rate 16 20 20 Blood Pressure 129/57 L 135/46 L 110/57 L Blood Pressure [Le ft arm] Blood Pressure [Ri ght Upper Arm] Blood Pressure [or thostatic lying Le ft Arm] Blood Pressure [or thostatic sitting Right Arm] Blood Pressure [or thostatic standing Right Arm] Pulse Oximetry 96 98 99 Oxygen Delivery Me thod Course Course ED Course: IV established and labs were drawn. No evidence of orthostatic hypotension. IV Protonix is ordered. EKG, read by me, shows normal sinus rhythm with a pulse of 69. Chest x-ray, read by me, does not show any acute pathology. CBC showed a hemoglobin of 6.6. Patient's baseline appears to be between 8 and 9. Normal lactate at 1.6. BUN was elevated at 38, chemistries otherwise unremarkable. Glucose slightly elevated at 213. Normal LFTs. Normal troponin Discussed risks and benefit of a blood transfusion and patient wishes to proceed. 2 units of packed red blood cells will be transfused. Vital Signs Vital signs: Initial Vital Signs Temperature 98.2 F 07/22/24 14:08 Temperature Source Temporal Artery Scan 07/22/24 14:08 Pulse Rate 77 07/22/24 14:08 Respiratory Rate 18 07/22/24 14:08 Blood Pressure 127/69 07/22/24 14:08 Blood Pressure Mean 88 07/22/24 14:08 Pulse Oximetry 98 07/22/24 14:08 Oxygen Delivery Method Room Air 07/22/24 14:08 Vital Signs Temperature 98.2 F 07/22/24 14:08 Pulse Rate 77 07/22/24 14:08 Respiratory Rate 18 07/22/24 14:08 Blood Pressure 127/69 07/22/24 14:08 Pulse Oximetry 98 07/22/24 14:08 Oxygen Delivery Method Room Air 07/22/24 14:08 Temperature 98.0 F 07/22/24 23:13 Pulse Rate 72 07/22/24 23:13 Respiratory Rate 20 07/22/24 23:13 Blood Pressure 140/51 H 07/22/24 23:13 Pulse Oximetry 98 07/22/24 23:13 Oxygen Delivery Method Room Air 07/22/24 17:37 Medications Administered Medications: Discontinued Medications Generic Name Dose Route Start Last Admin Trade Name Freq PRN Reason Stop Dose Admin Pantoprazole Sodium 80 mg 07/22/24 16:18 07/22/24 16:35 Pantoprazole Sodium 40 Mg Inj IVP 07/22/24 16:19 80 mg ONCE ONE Administration Sodium Chloride 250 ml 07/22/24 15:42 07/22/24 18:17 0.9 % Sodium Chloride 250 Ml IV 07/23/24 23:59 250 ml ONCE PRN Administration Medical Decision Making Medical Records Medical records reviewed: Yes I reviewed the patient's medical records Lab Data Lab results reviewed: Yes I reviewed the patient's lab results Labs: Lab Results 07/22/24 07/22/24 07/22/24 Range/Units 15:08 15:16 16:00 WBC 4.44 L (4.50-11.00) K/uL RBC 2.05 L (4.00-5.20) m/uL Hgb 6.6 L* (12.0-16.0) gm/dL Hct 21.1 L (33.0-51.0) % MCV 103 H (80-100) fL MCH 32 (26-34) pg MCHC 31 L (32-36) gm/dL RDW Coeff of Cece 16.2 H (11.5-15.5) % Plt Count 143 (140-440) K/uL Neut % (Auto) 64.3 (42.0-72.0) % Lymph % (Auto) 25.2 (20-44) % Kimball % (Auto) 7.0 (0.0-11.0) % Eos % (Auto) 2.5 (0.0-7.0) % Baso % (Auto) 0.5 (0.0-3.0) % Neut # (Auto) 2.90 (1.7-7.0) K/uL Lymph # (Auto) 1.10 (0.90-2.90) K/uL Kimball # (Auto) 0.30 (0.00-0.90) K/UL Eos # (Auto) 0.10 (0.00-0.50) K/uL Baso # (Auto) 0.00 (0.00-0.30) K/uL Abs Immat Gran (auto) 0.00 (0.00-0.30) K/uL Imm/Tot Granulo (auto) 0.5 % Sodium 137 (135-149) mmol/L Potassium 3.6 (3.6-5.1) mmol/L Chloride 102 (96-114) mmol/L Carbon Dioxide 28 (20-32) mmol/L Anion Gap 7 (7-15) mEq/L BUN 38 H (7-30) mg/dL Creatinine 1.1 (0.5-1.5) mg/dL Estimated Creat Clear 33.86 Estimated GFR 53 ml/min Glucose 213 H (60-115) mg/dL Lactate 1.6 (0.5-1.9) mmol/L Calcium 9.4 (8.4-10.6) mg/dL Total Bilirubin 0.3 (0.1-1.5) mg/dL Direct Bilirubin 0.1 (0.0-0.5) mg/dL AST 31 (12-35) U/L ALT 19 (4-35) U/L Alkaline Phosphatase 54 (40-150) U/L Troponin I < 0.01 L (0.01-0.04) ng/mL Total Protein 6.2 (6.0-8.3) g/dL Albumin 4.1 (3.3-5.0) g/dL Blood Type A Positive Antibody Screen NEGATIVE Crossmatch (AHG) See Detail Imaging Data Chest x-ray: Attestation: I have reviewed the pertinent imaging results. Radiologist's impression: TECHNIQUE: 2 views. FINDINGS: Medical Devices: None. Lung Volumes: Adequate inspiration. No significant atelectasis. Lungs: Clear lungs. Pleura and Pleural spaces: No significant pleural effusion. No pneumothorax. Mediastinum: Normal cardiomediastinal silhouette. Bony Thorax and Soft Tissues: No significant incidental findings. Right upper quadrant cholecystectomy clips are noted incidentally. IMPRESSION: No acute findings. Discharge Plan Discharge Clinical Impression: Gastrointestinal bleeding, Anemia Patient Disposition: Home, Self-Care Condition: Improved Additional Instructions: You will need to follow-up with primary care provider this watch to discuss next steps in your care. Restart omeprazole 40 mg daily. Prescriptions: No Action allopurinol 100 mg tablet 100 - 200 mg PO Q12H ampicillin 500 mg capsule 2,000 mg PO ONCE Rx Instructions: take 2000mg once before dental procedures. aspirin 81 mg capsule 81 mg PO DAILY Hold Instructions: Resume on 01/03/24. hold ASA until f/u with Hematology celecoxib 100 mg capsule 100 mg PO BID PRN (Reason: pain) cyclobenzaprine 10 mg tablet 10 mg PO HS PRN Trulicity 1.5 mg/0.5 mL pen injector 1.5 mg subcut Q7D famotidine 20 mg tablet 20 mg PO BID ferrous sulfate [Feosol] 325 mg (65 mg iron) tablet 325 mg PO DAILY gabapentin 300 mg capsule 600 - 900 mg PO Q12H fluticasone propionate 50 mcg/actuation spray,suspension 2 spray INTRANASAL DAILY losartan 50 mg tablet 50 mg PO DAILY glipizide 10 mg tablet extended release 24hr 10 mg PO DAILY Hold Instructions: Doctor's Order Patient Comments: watching while on Trulicity hydrochlorothiazide 25 mg tablet 25 mg PO DAILY loratadine [Claritin] 10 mg tablet 10 mg PO DAILY meclizine 25 mg tablet 25 mg PO TID PRN metoprolol tartrate 25 mg tablet 12.5 mg PO Q12H montelukast 10 mg tablet 10 mg PO HS acetaminophen 500 mg tablet 1,000 mg PO HS mecobalamin (vitamin B12) 1,000 mcg tablet,chewable 1,000 mcg PO DAILY magnesium 250 mg tablet 250 mg PO DAILY omeprazole 20 mg Capsule,Delayed Release(Dr/Ec) 20 mg PO BID Qty: 60 0RF Hold Instructions: taking Pepcid rosuvastatin 20 mg tablet 20 mg PO QPM Follow Up/Referrals: Myla Nassar DO [Primary Care Provider] - Stand Alone [facility] Info Inst[facility]
[2024-07-22 16:08] LABS: Albumin* 4.1 g/dL (3.3-5.0); Chloride* 102 mmol/L (96-114); Sodium* 137 mmol/L (135-149)
[2024-07-22 16:09] LABS: Potassium* 3.6 mmol/L (3.6-5.1)
[2024-07-22 16:11] LABS: Alkaline Phosphatase* 54 U/L (40-150); Anion Gap 7 mEq/L (7-15); Aspartate Amino Transferase* 31 U/L (12-35); Bilirubin Direct* 0.1 mg/dL (0.0-0.5); Bilirubin Total* 0.3 mg/dL (0.1-1.5); Blood Urea Nitrogen* 38 mg/dL (7-30); Carbon Dioxide* 28 mmol/L (20-32); Creatinine* 1.1 mg/dL (0.5-1.5); Est. Creatinine Clearance* 33.86; Estimated Glomerular Filt Rate 53 ml/min; Total Protein* 6.2 g/dL (6.0-8.3)
[2024-07-22 16:12] LABS: Alanine Aminotransferase* 19 U/L (4-35); Calcium* 9.4 mg/dL (8.4-10.6); Glucose* 213 mg/dL (60-115)
[2024-07-22 16:28] LABS: Troponin I* < 0.01 ng/mL (0.01-0.04)
[2024-07-22] MEDS: PANTOPRAZOLE SODIUM 40 MG INJ 80 MG IVP (16:35)
[2024-07-22 16:44] LABS: Slide Review Reflex No
[2024-07-22] MEDS: 0.9 % SODIUM CHLORIDE 250 ml IV (18:17)
--- NOTE | 2024-07-22 19:00 | PC.NURSE ---
End of Shift: Patient arrived to the floor by wheelchair at 1745. Patient vitally stable, lungs clear. Patient tolerating blood transfusion well. First unit of blood currently transfusion. Patient sitting comfortably in recliner reading.
--- NOTE | 2024-07-23 00:06 | PC.NURSE ---
Discharge - RN took over pt care at approximately 1900. Pt was receiving 1st of 2 units of ordered blood, no history of transfusion reaction reported by pt. Monitored vitals per protocol, no transfusion reactions noted during administration of 1st unit. 2nd unit administered per protocol, pt denied pain, SOB, N/V. Monitored vital signs per protocol, no transfusion reaction noted during administration of 2nd unit. IV removed with catheter intact, pt denied SOB, n/v, pain. Pt discharged 1 hour after administration of 2nd unit per protocol. Pt ambulated off of unit and drove home per self at approximately 2350.
--- NOTE | 2024-07-23 00:12 | ED.NURSE ---
Med Surg called to let this nurse know that patient had been discharged to home.
== END 2024-07-23 00:16 | disposition home or self-care (01) ==
LOC: ED 16:07 → MEDSURG 17:43
PROVIDERS: Emergency Provider Family Medicine; PCP Family Medicine
DX: K92.2 Gastrointestinal hemorrhage, unspecified (principal); D64.9 Anemia, unspecified
CPT/HCPCS: 36415; 36430; 71046; 80048; 80076; 82310; 83605; 84484; 85025; 86850; 86900; 86901; 86922; 93005; 96372; 96374; 99284; 99285; J2470; J3111; J7050; P9016

== ENCOUNTER 2024-11-11 10:00 | Outpatient (RCR) | payer MEDICARE, BC, SELFPAY ==
--- NOTE | 2024-05-13 13:20 | URNOTE ---
Prior auth is not required for Evenity ([id number]). Pt has medicare primary/BC [place] supplement. Services are based on medical necessity and follow medicare guidelines
[2024-05-18 13:05] VITALS: BP 126/73; PULSE 74; RESP 16; TEMP 36.2; O2SAT 96
[2024-05-18 13:21] LABS: Calcium* 9.7 mg/dL (8.4-10.6)
--- NOTE | 2024-05-18 15:32 | ONC.NURNOTE ---
Pt here for first Evenity injection. She reports she had a steroid injection in her back yesterday with Dr. Salgado and asks if its ok to proceed with Evenity today or if should wait. Called ordering provider's office: [facility] [place] PA-C [facility] - [facility]. Provider is out of office until next 05/24. Pt comfortable with waiting until then to hear back from him. Appt moved to 05/26.
--- NOTE | 2024-05-25 08:50 | ONC.NURNOTE ---
Received message OK to treat from Pooja from orthopedics and she talked with Dr. Luis who said it was fine to get evenity even with steroid injections. Any questions we can call [phone] Message left on patient's voicemail that we received message to proceed with Evenity
[2024-05-26 12:16] VITALS: BP 147/65; PULSE 73; RESP 16; TEMP 35.8; O2SAT 95
[2024-05-26] MEDS: ROMOSOZUMAB-AQQG 210 MG/2.34 ML INJ SUBCUT (13:25)
[2024-06-24 12:30] VITALS: BP 140/70; PULSE 75; RESP 16; TEMP 36.1; O2SAT 96
[2024-06-24 13:24] LABS: Calcium* 9.4 mg/dL (8.4-10.6)
[2024-06-24] MEDS: ROMOSOZUMAB-AQQG 210 MG/2.34 ML INJ SUBCUT (14:10)
[2024-07-22 12:46] VITALS: BP 130/65; PULSE 77; RESP 16; TEMP 36.8; O2SAT 95
[2024-07-22 13:19] LABS: Calcium* 9.3 mg/dL (8.4-10.6)
[2024-07-22] MEDS: ROMOSOZUMAB-AQQG 210 MG/2.34 ML INJ SUBCUT (13:44)
[2024-08-19 09:56] VITALS: BP 123/73; PULSE 74; RESP 16; TEMP 35.9; O2SAT 97
[2024-08-19 10:43] LABS: Calcium* 9.1 mg/dL (8.4-10.6)
[2024-08-19] MEDS: ROMOSOZUMAB-AQQG 210 MG/2.34 ML INJ SUBCUT (11:32)
[2024-09-16 09:55] LABS: Calcium* 9.6 mg/dL (8.4-10.6)
[2024-09-16] MEDS: ROMOSOZUMAB-AQQG 210 MG/2.34 ML INJ SUBCUT (10:53)
[2024-09-16 14:54] VITALS: BP 122/72; PULSE 66; RESP 16; TEMP 36.3; O2SAT 94
[2024-10-14 10:37] VITALS: BP 120/53; PULSE 68; RESP 16; TEMP 35.9; O2SAT 94
[2024-10-14 10:53] LABS: Calcium* 10.1 mg/dL (8.4-10.6)
[2024-10-14] MEDS: ROMOSOZUMAB-AQQG 210 MG/2.34 ML INJ SUBCUT (11:59)
[2024-11-11 10:09] VITALS: BP 143/72; PULSE 73; RESP 16; TEMP 35.6; O2SAT 95
[2024-11-11 11:00] LABS: Calcium* 9.5 mg/dL (8.4-10.6)
[2024-11-11] MEDS: ROMOSOZUMAB-AQQG 210 MG/2.34 ML INJ SUBCUT (12:03)
== END 2024-11-14 23:59 | disposition home or self-care (01) ==
LOC: CCIC 10:00
PROVIDERS: PCP Family Medicine; Referring Provider Family Medicine; Visit Provider Clinical Nurse Specialist
DX: M80.052A Age-related osteoporosis with current pathological fracture, left femur, initial encounter for fracture (principal); M54.42 Lumbago with sciatica, left side; G89.29 Other chronic pain
CPT/HCPCS: 36415; 82310; 96372; 96376; 96401; J3111

== ENCOUNTER 2025-05-02 09:00 | Outpatient (RCR) | payer MEDICARE, BC, SELFPAY ==
[2024-12-09 11:43] VITALS: BP 154/78; PULSE 75; RESP 16; TEMP 36.8; O2SAT 95
[2024-12-09 12:21] LABS: Calcium* 9.4 mg/dL (8.4-10.6)
[2024-12-09] MEDS: ROMOSOZUMAB-AQQG 210 MG/2.34 ML INJ SUBCUT (13:21)
[2025-01-06 10:03] VITALS: BP 124/80; PULSE 70; RESP 14; TEMP 36.4; O2SAT 99
[2025-01-06 10:51] LABS: Calcium* 9.4 mg/dL (8.4-10.6)
[2025-01-06] MEDS: ROMOSOZUMAB-AQQG 210 MG/2.34 ML INJ SUBCUT (11:48)
[2025-02-03 10:31] LABS: Calcium* 9.9 mg/dL (8.4-10.6)
[2025-02-03 10:49] VITALS: BP 133/80; PULSE 69; RESP 16; TEMP 36; O2SAT 95
[2025-02-03] MEDS: ROMOSOZUMAB-AQQG 210 MG/2.34 ML INJ SUBCUT (11:44)
[2025-03-03 10:14] VITALS: BP 142/65; PULSE 67; RESP 18; TEMP 36.8; O2SAT 95
[2025-03-03 10:27] LABS: Calcium* 9.7 mg/dL (8.4-10.6)
[2025-03-03] MEDS: ROMOSOZUMAB-AQQG 210 MG/2.34 ML INJ SUBCUT (11:34)
[2025-03-30 09:58] VITALS: BP 119/75; PULSE 68; RESP 18; TEMP 35.2; O2SAT 97
[2025-03-30 10:58] LABS: Calcium* 9.3 mg/dL (8.4-10.6)
[2025-03-30] MEDS: ROMOSOZUMAB-AQQG 210 MG/2.34 ML INJ SUBCUT (12:07)
--- NOTE | 2025-03-30 13:30 | ONC.NURNOTE ---
Addendum entered by Argenis Kwon RN 04/19/25 13:48: Lm with Sea Hammonds PA-C for updated orders. Original Note: Patient in clinic today for Evenity injection. RN updated patient that this is her 12th injection and her orders for it on 04/15/25. Patient thinks she should be doing a dose of Reclast following the completion of her injections. Updated patient that we have not received any new orders from Dr. Hammonds. Per her last note with him she should have a DEXA and follow up with him in 1 year. She reports she sent his care team a message but has not heard anything back. She is going to call Dr. Hammonds about what she should do next. Patient will update us what she knows.
[2025-05-02 09:14] VITALS: BP 117/70; PULSE 66; RESP 18; TEMP 36.6; O2SAT 96
[2025-05-02 09:26] LABS: Calcium* 9.2 mg/dL (8.4-10.6); Creatinine* 1.0 mg/dL (0.5-1.5); Estimated Glomerular Filt Rate 59 ml/min
[2025-05-02] MEDS: SODIUM CHLORIDE 0.9 % (FLUSH) 10 ML SYRINGE IVF (10:05)
== END 2025-06-07 23:59 | disposition home or self-care (01) ==
LOC: CCIC 09:00
PROVIDERS: PCP Family Medicine; Referring Provider Family Medicine; Visit Provider Clinical Nurse Specialist
DX: M85.80 Other specified disorders of bone density and structure, unspecified site (principal); Z79.83 Long term (current) use of bisphosphonates
CPT/HCPCS: 36415; 82310; 82565; 96365; 96372; J3111; J3489; J7050

== ENCOUNTER 2025-08-27 18:30 | Outpatient (CLI) | payer MEDICARE, BC, SELFPAY | END 2025-08-27 18:31 | disposition home or self-care (01) | LOC: AMB 09-04 15:51 | PROVIDERS: PCP Family Medicine; Visit Provider Family Medicine | DX: M54.9 Dorsalgia, unspecified (principal); M79.605 Pain in left leg | CPT/HCPCS: A0425; A0427 ==

== ENCOUNTER 2025-08-27 18:54 | Observation (INO) | payer MEDICARE, BC, SELFPAY ==
--- OUTSIDE RECORDS SUMMARY | 2023-12-28 23:30 | XMS_ITS | Continuity of Care Document ---
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 Phone No Information Unavailable Unavailable Allergies, Adverse Reactions, Alerts Substance Reaction Status Criticality tramadol Active No Information acetaminophen Active No Information Medications Medication Instructions Dosage Effective Dates (start - stop) Status Comments allopurinol 100 mg tablet take 2 tablet by oral route every day 200 MG - Active Calcium 600 mg calcium (1,500 mg) tablet - Active Vitamin B-12 1,000 mcg tablet - Active Trulicity 1.5 mg/0.5 mL subcutaneous pen injector inject (1.5MG) by subcutaneous route every week 1.5 MG - Active gabapentin 300 mg capsule take 3 capsule by oral route 2 times every day 900 MG - Active glipizide ER 5 mg tablet, extended release 24 hr take 1 tablet by oral route every day with breakfast 5 MG - Active loratadine 10 mg tablet take 1 tablet by oral route every day 10 MG - Active magnesium 400 mg (as magnesium oxide) capsule - Active omeprazole 20 mg capsule,delayed release take 1 capsule by oral route every day 30 minutes to 1 hour before a meal 20 MG - Active Zocor 40 mg tablet take 1 tablet by oral route every day in the evening 40 MG - Active ferrous sulfate 325 mg (65 mg iron) tablet take 1 tablet by oral route every day 325 MG - Active Flonase Allergy Relief 50 mcg/actuation nasal spray,suspension spray 1 - 2 spray by intranasal route every day in each nostril as needed 50-100 MCG - Active oxycodone 5 mg capsule take 1 capsule by oral route every 6 hours as needed for pain as needed 5 MG - Active hydrochlorothiazide 25 mg tablet take 1 tablet by oral route every day 25 MG - Active Procedures Procedure Date Offic/outpt E&m [facility] Advance Directives Directive Yes / No Effective Date File Name No Information Encounters Encounter Description Practice Location Reason(s) For Visit Diagnoses Date Provider Providers Copied on Encounter [facility], [address] [address], [place], [id number], [place] tel:[phone] No Information 4 No Information Offic/outpt E&m [facility], [address] [address], [place], [id number], [place] tel:[phone] [facility] GI Symptoms or Concerns (chief complaint) Iron deficiency anemia, unspecified iron deficiency anemia typeRectal bleedingMelena 4 Decelcammie Delong. [address], [id number], [place]. tel:[phone] Referring Provider: Yuan Wood, [address] [place] [address], [place], [address]. tel:[phone] [facility], [address] [address], [place], [id number], [place] tel:[phone] [facility] No Information 4 Jose Angel Davies. [address] [facility] [address], [place], [id number], [place]. tel:[phone] Family History Family Member Type Diagnosis Age At Onset Problem Family history of Diabetes m sathya Mother Problem Hypertension Father Problem Diabetes mellitus Immunizations Vaccine Date Status Comments influenza, high-dose seasona l, quadrivalent, 0.7mL dose, preservative free administered Note: [facility] bi-direct ional interface ; Source: Other Registry SARS-COV-2 (COVID-19) vaccin e, mRNA, spike protein, LNP, preservative free, 50 mcg/0.5 mL dose administered Note: [facility] bi-direct ional interface ; Source: Other Registry SARS-COV-2 (COVID-19) vaccin e, mRNA, spike protein, LNP, bivalent, preservative free, 30 mcg/0.3 mL dose, yanet-sucrose formulation administered Note: [facility] bi-direct ional interface ; Source: Other Registry tetanus toxoid, reduced diphtheria toxoid, and acellular pertussis vaccine, adsorbed administered Note: [facility] b i-directional interface ; Source: Other Registry influenza, seasonal vaccine, quadrivalent, adjuvanted, 0.5mL dose, preservative free administered Note: [facility] bi-di rectional interface ; Source: Other Registry SARS-COV-2 (COVID-19) vaccin e, mRNA, spike protein, LNP, preservative free, 30 mcg/0.3mL dose, yanet-sucrose formulation administered Note: [facility] C bi- directional interface ; Source: Other Registry SARS-COV-2 (COVID-19) vaccin e, mRNA, spike protein, LNP, preservative free, 30 mcg/0.3mL dose administered Note: [facility] bi-direct ional interface ; Source: Other Registry influenza, seasonal vaccine, quadrivalent, adjuvanted, 0.5mL dose, preservative free administered Note: [facility] bi-di rectional interface ; Source: Other Registry SARS-COV-2 (COVID-19) vaccin e, mRNA, spike protein, LNP, preservative free, 30 mcg/0.3mL dose administered Note: [facility] bi-direct ional interface ; Source: Other Registry SARS-COV-2 (COVID-19) vaccin e, mRNA, spike protein, LNP, preservative free, 30 mcg/0.3mL dose administered Note: [facility] bi-direct ional interface ; Source: Other Registry influenza, seasonal vaccine, quadrivalent, adjuvanted, 0.5mL dose, preservative free administered Note: [facility] bi-di rectional interface ; Source: Other Registry zoster vaccine recombinant administered N ote: [facility] bi-directional interface ; Source: Other Registry zoster vaccine recombinant administered N ote: [facility] bi-directional interface ; Source: Other Registry Seasonal trivalent influenza vaccine, adjuvanted, preservative free administered Note: [facility] bi-direct ional interface ; Source: Other Registry Seasonal trivalent influenza vaccine, adjuvanted, preservative free administered Note: [facility] bi-direct ional interface ; Source: Other Registry Pneumovax 23 administered Note: [facility] bi-d irectional interface ; Source: Other Registry Seasonal trivalent influenza vaccine, adjuvanted, preservative free administered Note: [facility] bi-direct ional interface ; Source: Other Registry influenza, high dose seasona l, preservative-free administered Note: [facility] bi-direct ional interface ; Source: Other Registry Afluria Qd administered Note: [facility] bi-directional interface ; Source: Other Registry Prevnar 13 administered Note: [facility] bi-d irectional interface ; Source: Other Registry influenza virus vaccine, unspecified formulation administered Note: [facility] bi-di rectional interface ; Source: Other Registry tetanus toxoid, reduced diphtheria toxoid, and acellular pertussis vaccine, adsorbed administered Note: [facility] b i-directional interface ; Source: Other Registry zoster vaccine, live administered Note: [facility] bi-directional interface ; Source: Other Registry Pneumovax 23 administered Note: [facility] bi-d irectional interface ; Source: Other Registry Influenza, seasonal, injectable administe red Note: [facility] bi- directional interface ; Source: Other Registry Payers Payer name Insurance type Covered republican ID Authoriza tion(s) No Information Social History Type Description Quantity Date Captured Comments Alcohol Use Details Unknown Caffeine Use Details Unknown Tobacco Use Status No Information Smoking Status No Information Sex Female Chief Complaint And Reason For Visit No Information Reason For Referral Reason For Referral No Information Plan Of Treatment Date Type Action Status Referral Ordered: Colonoscopy Appointment date/timeframe: First Available ordered History Of Present Illness Encounter Date Complaint History Of Ada nt Illness GI Symptoms or Concerns Kina is a pleasant 73-year-old female who presents for evaluation of iron-deficiency anemia. Records reviewed for this visit include 12/16/2023 hematology note and labs, 11/25/2023 ED notes, and 11/26/2023 EGD report. Patient has a history of anemia dating back to 2019. She is on oral iron supplementation and has required IV iron in the past. She presented to the ED on 11/25/2023 for weakness, dyspnea on exertion and was subsequently found to have hemoglobin of 5.8. Two weeks prior, her hemoglobin was noted to be 8. She received 3 units of packed red blood cells while hospitalized and had an improvement in hemoglobin to 8.7 at discharge. She did note that leading up to the hospitalization she had episodes of intermittent dark malodorous stools. She also reports chronic intermittent rectal bleeding as well as flares of diverticulitis/diverticulosis. During her recent hospitalization, she underwent an upper endoscopy which showed no ulcerations or areas of occult bleeding that could explain her anemia. Random biopsies of the duodenum were normal and negative for celiac disease. Biopsies of the stomach were negative for atrophy or H pylori. Random biopsies of stomach did show nonerosive reactive gastropathy. She was started on omeprazole 20 mg twice daily.Her last colonoscopy was completed 07/04/2021. Colonoscopy revealed hypertrophied anal papillae, diverticulosis, and was otherwise unremarkable. She does state she was having rectal bleeding when this colonoscopy was completed and it was thought to be related to the anal papillae. She has a past medical history of type 2 diabetes and hypertension. Abdominal surgical history includes cholecystectomy. No family history of IBD, colon cancer, or celiac disease. Patient does not use tobacco. Patient does not drink alcohol. Functional Status Date Functional Assessmen t No Information Instructions Date Instruction Additional Infor mation No Information Assessments Type Assessment Date No Information Patient Care Teams Name Effective Dates (start - stop) Status Members No Information
--- OUTSIDE RECORDS SUMMARY | 2023-12-28 23:30 | XMS_ITS | Continuity of Care Document ---
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 Phone No Information Unavailable Unavailable [...] - Active Procedures Procedure Date Offic/outpt E&m [facility] Advance Directives Directive Yes / No Effective Date File Name No Information Encounters Encounter Description Practice Location Reason(s) For Visit Diagnoses Date Provider Providers Copied on Encounter [facility], [address] [address], [place], [id number], [place] tel:[phone] No Information 4 No Information Offic/outpt E&m [facility], [address] [address], [place], [id number], [place] tel:[phone] [facility] GI Symptoms or Concerns (chief complaint) Iron deficiency anemia, unspecified iron deficiency anemia typeRectal bleedingMelena 4 Decelcammie Delong. [address], [id number], [place]. tel:[phone] Referring Provider: Yuan Wood, [address] [place] [address], [place], [address]. tel:[phone] [facility], [address] [address], [place], [id number], [place] tel:[phone] [facility] No Information 4 Jose Angel Davies. [address] [facility] [address], [place], [id number], [place]. tel:[phone] Family History Family Member Type Diagnosis Age [...] Registry Payers Payer name Insurance type Covered constitution party ID Authoriza tion(s) No Information Social History [...]
--- OUTSIDE RECORDS SUMMARY | 2025-08-10 10:03 | XMS_ITS | Encounter Summary ---
Author Organization [facility] Address [address] [place] [address] Care Team Providers Care Train Reservation Clerk Name Role Phone Elsewhere, Pcp Primary Care Provider Unavailabl e Reason for Referral * Outpatient (Routine) - Closed Specialty Diagnoses / Procedures Referred By Contac t Referred To Contact Diagnoses Age Related Osteoporosis Femur With Pathological Fracture Initial Left (HCC) Revision Knee Replacement Status Post Left Procedures DX Femur Left 2 Views Mata Walker M.D. [address] [place] [phone] Phone: tel: fax: [facility] Region Referral ID Status Reason Start Date Expiration Date Visits Re quested Visits Authorized [id number] Closed 08/10/2024 08/10/2025 1 1 Reason for Visit * Outpatient (Routine) - Closed Specialty Diagnoses / Procedures Referred By Contac t Referred To Contact Diagnoses Age Related Osteoporosis Femur With Pathological Fracture Initial Left (HCC) Revision Knee Replacement Status Post Left Procedures DX Femur Left 2 Views Mata Walker M.D. [address] [place] [phone] Phone: tel: fax: [facility] Referral ID Status Reason Start Date Expiration Date Visits Re quested Visits Authorized [id number] Closed 08/10/2024 08/10/2025 1 1 Encounter Details Date Type Department Care Team (Latest Contact Info) Description 08/10/2025 10:03 AM CDT - 08/10/2025 11:59 PM CDT Hospital Encounter Department of Radiology, [facility], in [place], [place] [address] [place] [phone] Mata Walker M.D. 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 05/07/2022 amLODIPine (NORVASC) 2.5 mg tablet Take 2.5 mg by mouth daily. 05/20/2022 ampicillin (PRINCIPEN) 500 mg capsule Take 2,000 mg po prior to dental procedure 09/25/2021 blood sugar diagnostic (glucose blood) strips Test once daily. Dx E11.9 03/31/2022 calcium carbonate-vitamin D3 1,500 mg (600 mg calcium)-5 mcg (200 Unit) per tablet Take 1 tablet by mouth daily with breakfast. 02/04/2018 celecoxib (CeleBREX) 100 mg capsule Take 1 capsule (100 mg total) by mouth 2 (two) times a day. 60 capsule 11/04/2022 Contour Next Test Strips strips USE TO TEST BLOOD GLUCOSE LEVELS ONCE DAILY. 04/05/2022 cyanocobalamin (VITAMIN B12) 1,000 mcg tablet Take 1 tablet by mouth every other day. 11/17/2019 cyclobenzaprine (FLEXERIL) 10 mg tablet Take 10 mg by mouth at bedtime as needed. 11/03/2022 dulaglutide (TRULICITY) 1.5 mg/0.5 mL pen injector injection Inject 1.5 mg under the skin once a week. 09/25/2021 famotidine (PEPCID) 40 mg tablet Take 20 mg by mouth 2 (two) times a day. 04/05/2022 ferrous sulfate 325 mg (65 mg iron) DR tablet Take 325 mg by mouth every other day. 05/09/2021 fluticasone propionate (FLONASE) 50 mcg/actuation nasal spray Inhale 2 Sprays into both nostrils once daily. 04/05/2022 gabapentin (NEURONTIN) 300 mg capsule 2 capsules in AM; 3 capsules in PM 09/13/2015 glipiZIDE (GLUCOTROL XL) 5 mg 24 hr tablet Take 5 mg by mouth daily with breakfast. 04/05/2022 hydroCHLOROthiazide (HYDRODIURIL) 25 mg tablet Take 25 mg by mouth daily. 05/07/2022 loratadine (CLARITIN) 10 mg tablet Take 10 mg by mouth daily. losartan (COZAAR) 50 mg tablet Take 50 mg by mouth. 12/25/2022 magnesium oxide 400 mg magnesium capsule Take 400 mg by mouth every evening. 12/22/2019 meclizine (ANTIVERT) 25 mg tablet Take 25 mg by mouth as needed for vertigo. 09/22/2022 metoprolol tartrate (LOPRESSOR) 25 mg tablet Take 12.5 mg by mouth. 12/25/2022 montelukast (SINGULAIR) 10 mg tablet Take 10 mg by mouth at bedtime. 09/03/2022 omeprazole (PriLOSEC) [address] capsule Take 20 mg by mouth 2 (two) times a day. 11/29/2023 ondansetron ODT (ZOFRAN-ODT) 4 mg disintegrating tablet Dissolve 1 tablet in the mouth every 8 (eight) hours as needed. 10/13/2021 simvastatin (ZOCOR) 40 mg tablet Take 40 mg by mouth at bedtime. 07/24/2022 documented as of this encounter Plan of Treatment Not on file documented as of this encounter Procedures Procedure Name Priority Date/Time Associated Diagnosis Comments DX FEMUR LEFT 2 VIEWS RAD - Routine (most inpatients and all outpatients) 08/10/2025 10:23 AM CDT Age Related Osteoporosis Femur With Pathological Fracture Initial Left (HCC) Revision Knee Replacement Status Post Left documented in this encounter Results * DX Femur Left 2 Views (08/10/2025 10:23 AM CDT) Anatomical Region Laterality Modality Lower Extremity, Femur, Musc uloskeletal RST LOS, Musculoskeletal ARZ LOS, Muskuloskeletal FLA LOS Left Digit al Radiography Impressions 08/10/2025 10:54 AM CDT 1. No change in alignment of ORIF of well-healed periprosthetic fracture of the mid left femur. 2. Stable redo left total knee arthroplasty. Narrative 08/10/2025 10:54 AM CDT EXAM: DX FEMUR LEFT 2 VIEWS COMPARISON: 08/08/2024. FINDINGS: Soft tissues are unremarkable. There is no change in alignment at site of ORIF of generally healed periprosthetic fracture of the mid femoral shaft. There is stable redo total knee arthroplasty with long stemmed femoral and tibial prostheses. There is no evidence of loosening.. Hip joint space is preserved. Procedure Note Cody Chamberlain Jr., M.D. - 08/10/2025 EXAM: DX FEMUR LEFT 2 VIEWS COMPARISON: 08/08/2024. FINDINGS: Soft tissues are unremarkable. There is no change in alignmentat site of ORIF of generally healed periprosthetic fracture of the midfemoral shaft. There is stable redo total knee arthroplasty with longstemmed femoral and tibial prostheses. There is no evidence of loosening..Hip joint space is preserved. IMPRESSION: 1. No change in alignment of ORIF of well-healed periprosthetic fractureof the mid left femur. 2. Stable redo left total knee arthroplasty. us Mata Walker M.D. IM DIAGNOSTIC IMAGING PROC EDURES Final Result documented in this encounter Visit Diagnoses Diagnosis Age Related Osteoporosis Femur With Pathological Fracture Initial Left (HCC) Revision Knee Replacement Status Post Left documented in this encounter Care Teams Train Reservation Clerk Relationship Specialty Start Date End Date Elsewhere, Pcp PCP - General Internal Medicine 10/14/22 documented as of this encounter
--- OUTSIDE RECORDS SUMMARY | 2025-08-18 08:15 | XMS_ITS | Encounter Summary ---
Author Organization 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 [address] [place] [phone] Phone: tel: fax: [facility] Region Referral ID Status Reason Start Date Expiration Date V isits Requested Visits Authorized [id number] Authorized 08/18/2025 11/18/2026 1 1 * Outpatient (Routine) - Authorized Specialty Diagnoses / Procedures Referred By Contac t Referred To Contact Orthopedic Surgery Mata Walker M.D. [address] [place] [phone] Phone: tel: fax: [facility] Region Referral ID Status Reason Start Date Expiration Date V isits Requested Visits Authorized [id number] Authorized 08/18/2025 02/17/2027 1 1 Reason for Visit * Appointment Request (Routine) - Closed Specialty Diagnoses / Procedures Referred By Contac t Referred To Contact Orthopedic Surgery Referral ID Status Reason Start Date Expiration Date Visits Re quested Visits Authorized [id number] Closed 08/17/2025 11/17/2026 1 1 Encounter Details Date Type Department Care Team (Latest Contact Info) Description 08/18/2025 8:15 AM CDT Virtual Visit Department of Orthopedic Surgery in [place], [place] [address] [place] [phone] Mata Walker M.D. 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 - 08/18/2025 8:15 AM CDT SUBJECTIVE CHIEF COMPLAINT/REASON FOR VISIT FOLLOW UP: Arthroplasty Revision Knee - Left DOS: 10/07/2022 Telephone visit with Kina today follow up of her right distal femur replacement. Unfortunately shehad a subsequent periprosthetic proximal fracture around her cemented stem fixed at [facility]. She has been overall doing okay. She has been having some increasing discomfort off and on aroundthe leg but generally she is getting along quite well. She had some pain and snapping in her buttock area on that side as well as some pain just above the kneecap and just below the kneecap. She willfeel some occasional spasms in the inner aspect of her thigh but otherwise the legs generally been doing quite well and she is continuing to get along and remained very active. She has also been doing a vanity and Reclast for her bone density. Reviewing her recent x-rays and compared to series of previous films including a year ago as well as the April 2024 and prior. This demonstrates continuing interval callus bridging and healing she has had robust healing of her fracture. There was some early potential or concern for shift into varus of the femoral stem but when identifying prior radiographs with similar rotational profiles this looks to remain stable. Very subtle lucencies around the cement mantle proximally if remained stable with no significant progression worse appreciable changes from a year ago as well. Discussed that overall I think her fractures healed in done very nicely and a believe at this pointher stem remained stable based on her symptomatology as well as her x-rays appearing to be stable. We will continue to monitor these. She will follow with [facility] PA-C for her bone density aswell. 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) Expected: 08/18/2026, Expires: 11/17/2026 Scheduled Referrals Name Type Priority Associated Diagnoses Order Schedule Orthopedic Surgery Post Op (clinic) Outpatient Referral Routine Expected: 08/18/2026, Expires: 11/17/2026 documented as of this encounter Visit Diagnoses Diagnosis Age Related 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
[2025-08-27 18:56] VITALS: BP 193/80; PULSE 70; RESP 16; TEMP 36.7; O2SAT 94; BMI 39.5
--- OUTSIDE RECORDS SUMMARY | 2025-08-27 18:56 | XMS_ITS | Encounter Summary ---
Author Organization [facility] Address [address] [place] [address] Care Team Providers Care Rent Collector Name Role Phone Elsewhere, Pcp Primary Care Provider Unavailabl e Reason for Visit * Reason Onset Date Comments Billing questions 06/20/2025 Encounter Details Date Type Department Care Team (Latest Contact Info) Description 06/20/2025 Clinical Communication Department of Orthopedic Surgery in [place], [place] [address] [place] [phone] Sea Hammonds, [place]Don-[place]., M.S. 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
--- OUTSIDE RECORDS SUMMARY | 2025-08-27 18:59 | XMS_ITS | Encounter Summary ---
Author Organization [facility] Address [address] [place] [address] Care Team Providers Care Band Log Mill And Carriage Operator Name Role Phone Elsewhere, Pcp Primary Care Provider Unavailabl e Encounter Details Date Type Department Care Team (Late st Contact Info) Description 07/25/2025 Clinical Communication Department of Orthopedic Surgery in [place], [place] [address] [place] [phone] Sea Hammonds PJae., M.S. 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
--- OUTSIDE RECORDS SUMMARY | 2025-08-27 18:59 | XMS_ITS | Encounter Summary ---
Author Organization [facility] Address [address] [place] [address] Care Team Providers Care Car Painter Name Role Phone Elsewhere, Pcp Primary Care Provider Unavailabl e Reason for Visit * Reason Onset Date Comments After Visit Question 07/17/2025 Encounter Details Date Type Department Care Team (Latest Contact Info) Description 07/17/2025 Clinical Communication Department of Orthopedic Surgery in [place], [place] [address] [place] [phone] Sea Hammonds, PDon-[place]., M.S. 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
--- OUTSIDE RECORDS SUMMARY | 2025-08-27 18:59 | XMS_ITS | Clinical Summary ---
Author Organization [facility] Address [address] [place] [address] Care Team Providers Care Deicer Repairer Pneumatic Name Role Phone Myla Nassar DO Primary Care Provider [phone] Source Comments You are receiving this document as you are listed as the primary care provider,follow-up provider, or the patient has been referred to you for consultation.This is in compliance with the Medicare and[facility] EHR Incentive Program,which states Providers who transition their patient to another setting of careor provider of care or refers their patient to another provider of care shouldprovide summary care record for each transition of care or referral. MAD Incubator Allergies Active Allergy Reactions Criticality Noted Date Comments Morphine And Codeine Nausea 02/15/2014 Nausea, vomiting, headache, dizziness Nausea and headache Medications amLODIPine (NORVASC) 2.5 MG tabletIndications:Hype rtension Take 1 Tablet (2.5 mg) by mouth daily. Indications: High Blood Pressure Disorder Do not start before August 22, 2023. 90 Tablet 3 2022 Active calcium carbonate-vitamin D (OS-NEVAEH 500 WITH D) 500-5 MG-MCG per tabletIndications:Hypo calcemia Take 1 Tablet by mouth two times a day with meals. Indications: Low Amount of Calcium in the Blood Do not start before August 22, 2023. 100 Tablet 2022 Active cyanocobalamin (VITAMIN B12) 1000 MCG tabletIndications:Ilene min B12 Deficiency Take 1 Tablet (1,000 mcg) by mouth daily. Indications: Inadequate Vitamin B12 Do not start before August 22, 2023. 2022 Active famotidine (PEPCID) 20 MG tabletIndications:Hear tburn Take 1 Tablet (20 mg) by mouth two times a day before meals. Indications: Heartburn Do not start before August 22, 2023. 2022 Active ferrous sulfate 325 (65 Fe) MG tabletIndications:Iron Deficiency Take 1 Tablet (325 mg) by mouth every other day. Indications: Iron Deficiency Do not start before August 23, 2023. 2022 Active gabapentin (NEURONTIN) 300 MG capsuleIndications:Bucky ropathic Pain Take 2 Capsules (600 mg) by mouth daily. Indications: Neuropathic Pain Do not start before August 22, 2023. 180 Capsule 3 2022 Active hydroCHLOROthiazide (ORETIC) 25 MG tabletIndications:Hype rtension Take 1 Tablet (25 mg) by mouth daily. Indications: High Blood Pressure Disorder Do not start before August 22, 2023. 90 Tablet 3 2022 Active losartan (COZAAR) 50 MG tabletIndications:Hype rtension Take 1 Tablet (50 mg) by mouth daily. Indications: High Blood Pressure Disorder Do not start before August 22, 2023. 90 Tablet 3 2022 Active magnesium oxide (MAG-OX) 400 MG tabletIndications:Hypo magnesemia Take 1 Tablet (400 mg) by mouth daily with breakfast. Indications: Disorder with Low Magnesium Levels Do not start before August 22, 2023. 2022 Active metoprolol tartrate (LOPRESSOR) 25 MG tabletIndications:Atri al Fibrillation Take 0.5 Tablets (12.5 mg) by mouth two times a day. Indications: Atrial Fibrillation 2022 Active simvastatin (ZOCOR) 40 MG tabletIndications:Seco ndary Hypercholesterolemia Take 1 Tablet (40 mg) by mouth every evening. Indications: Nonfamilial Hypercholesterolemia 90 Tablet 4 2022 Active acetaminophen (TYLENOL) 500 MG tabletIndications:Pain Take 2 Tablets (1,000 mg) by mouth every 6 hours as needed for Pain. Maximum acetaminophen dose is 4000 mg in 24 hours Indications: Pain 100 Tablet 11 2022 Active Allopurinol 200 MG TABSIndications:Gout Take 1 Tablet (200 mg) by mouth daily. Indications: Gout 2022 Active allopurinol (ZYLOPRIM) 100 MG tabletIndications:Gout Take 1 Tablet (100 mg) by mouth every evening. Indications: Gout 90 Tablet 3 2022 Active gabapentin (NEURONTIN) 300 MG capsuleIndications:Bucky ropathic Pain Take 3 Capsules (900 mg) by mouth every evening. Indications: Neuropathic Pain 270 Capsule 3 2022 Active loratadine (CLARITIN) 10 MG tablet Take 1 Tablet (10 mg) by mouth. Active montelukast (SINGULAIR) 10 MG tablet Take 1 Tablet (10 mg) by mouth daily. 2022 Active [employer] BLOOD GLUCOSE TEST test strip Test once daily. Dx E11.9 2022 Active AgaMatrix Ultra-Thin Lancets MISC Use one time daily. Dx: E11.9 2022 Active celecoxib (CELEBREX) 100 MG capsule Take 1 Capsule (100 mg) by mouth two times daily as needed. 2022 Active cyclobenzaprine (FLEXERIL) 10 MG tablet Take 1 Tablet (10 mg) by mouth once as needed. 2022 Active TRULICITY 1.5 MG/0.5ML injection pen Inject subcutaneously. 2022 Active glipiZIDE XL (GLUCOTROL XL) 5 MG 24 hour release tablet Take 1 Tablet (5 mg) by mouth two times a day. 2022 Active Active Problems Problem Noted Date Diagnosed Date Post-operative pain 08/26/2023 Chronic anemia 08/26/2023 Diaphoresis 08/25/2023 Type 2 diabetes mellitus wit hout complication, without long-term current use of insulin 08/25/2023 Other fracture of left femur , initial encounter for closed fracture 08/19/2023 Resolved Problems Problem Noted Date Diagnosed Date Resolved Date Postoperative fever 08/21/2023 08/24/20 Social History Tobacco Use Types Packs/Day Years Used Date Smoking Tobacco: Unknown Alcohol Use Standard Drinks/Week Comments Not Currently 0 (1 standard drink = 0.6 oz pur e alcohol) Hunger Vital Sign Answer Date Recorded Within the past 12 months, y ou worried that your food would run out before you got the money to buy more. Never true 08/19/20 Within the past 12 months, t he food you bought just didn't last and you didn't have money to get more. Never true 08/19/2023 Comments Unknown Sex and Gender Information Value Date Recorded Sex Assigned at Not on file Legal Sex Female 10:03 AM CDT Gender Identity Not on file Sexual Orientation Not on file Last Filed Vital Signs Vital Sign Reading Time Taken Comments Blood Pressure 137/55 08/26/2023 6:06 AM CDT Pulse 68 08/26/2023 6:06 AM CDT Temperature 36.7 C (98.1 F) 08/26/2023 6:06 AM CDT Respiratory Rate 16 08/26/2023 6:06 AM CDT Oxygen Saturation 95% 08/26/2023 6:06 AM CDT Inhaled Oxygen Concentration - - Weight 102.4 kg (225 lb 11.2 oz) 08/26/2023 6:00 AM CDT Height 156.2 cm (5' 1.5) 08/19/2023 1:00 AM CDT Body Mass Index 41.96 08/19/2023 1:00 AM CDT Plan of Treatment Health Maintenance Due Date Last Done Comments Colon Cancer Screening Plan Due 1950 Diabetes: Albumin/Creatinine Ratio, Urine 1950 Diabetes: Eye Exam 1950 Diabetes: Foot Exam 1950 Diabetes: Lipid Panel 1950 Hep B Immunization Discussion 1950 Hep C Screening (Preventive Services) 1950 Medicare Annual Wellness Visit 1950 Diabetes: HGBA1C 12/13/2023 06/12/2023, , 12/25/2022, Additional history exists Mammogram 06/15/2024 06/15/2023, 12/0 06/2021, 10/31/2020, Additional history exists Diabetes: Creatinine 08/22/2024 08/22/2023, 08/21/2023, 08/20/2023, Additional history exists RSV Vaccine (1 - 1-dose 75+ series) 2025 COVID-19 Vaccine ( season) 2025 09/22/2023, 12/25/2022, 06/11/2022, Additional history exists Influenza Vaccine (#1) 2025 , 08/28/2022, 09/25/2021, Additional history exists DTaP/Tdap/Td Vaccine (3 - Tdap) 09/24/2032 09/24/2022, 2012, 09/28/2003 Pneumococcal Vaccine 50+ Yrs Completed 06/2018, 10/11/2015, 10/22/2009 Zoster/Shingles Vaccine Completed 03/27/20, 01/10/2020, 06/03/2011 Dexa Completed 10/19/2023, 06/13/2020 HepA Vaccine Aged Out No longer eligi ble based on patient's age to complete this topic HepB Vaccine Aged Out No longer eligi ble based on patient's age to complete this topic Hib Vaccine Aged Out No longer eligi ble based on patient's age to complete this topic MCV4 Vaccine Aged Out No longer eligi ble based on patient's age to complete this topic Meningococcal B Vaccine Aged Out No l onger eligible based on patient's age to complete this topic Medical Devices Implanted Type Area Base Wad Operator Adjuster Device Identifier Shelf Expiration Date Model / Serial / Lot Bone Rhona Plus Dbm 5cc - [id number] Implanted:Qty : 1 on 08/19/2023 by Tc Gallardo MD at [facility] BIOLOGIC Left: FEMUR Medtronic - [employer] 03/23/2025 [id number] / [id number] / Plt Acp Lk 3.5mm 8h - [id number] Implanted:Qty : 1 on 08/19/2023 by Tc Gallardo MD at [facility] DEVICE Left: LEG [employer] - Trauma [id number] / / Scr Stefano 3.5x32 - [id number] Implanted:Qty : 1 on 08/19/2023 by Tc Gallardo MD at [facility] DEVICE Left: LEG [employer] - Trauma [id number] / / Scr Stefano Lk 3.5x10 [id number] - [id number] Implanted:Qty : 3 on 08/19/2023 by Tc Gallardo MD at [facility] DEVICE Left: LEG [employer] - Trauma [id number] / / Assy Cable Cercl Cocr 1.8x635 - [id number] Implanted:Qty : 2 on 08/19/2023 by Tc Gallardo MD at [facility] DEVICE Left: FEMUR [employer] Inc 04/17/2033 [id number] / / [id number] Assy Cable Cercl Cocr 1.8x635 - [id number] Implanted:Qty : 1 on 08/19/2023 by Tc Gallardo MD at [facility] DEVICE Left: LEG [employer] Inc 04/17/2033 [id number] / / [id number] Plt Ncb Prox Fem Lt 285mm 12h - [id number] Implanted:Qty : 1 on 08/19/2023 by Tc Gallardo MD at [facility] DEVICE Left: LEG [employer] [id number] / / Scr Ncb Unicort 5.0x18 - [id number] Implanted:Qty : 1 on 08/19/2023 by Tc Gallardo MD at [facility] DEVICE Left: LEG [employer] [id number] / / Scr Ncb Stefano Sftp 5.0x36 - [id number] Implanted:Qty : 2 on 08/19/2023 by Tc Gallardo MD at [facility] DEVICE Left: LEG [employer] [id number] / / Scr Ncb Stefano Sftp 5.0x40 - [id number] Implanted:Qty : 3 on 08/19/2023 by Tc Gallardo MD at [facility] DEVICE Left: LEG [employer] [id number] / / Scr Ncb Stefano Sftp 5.0x80 - [id number] Implanted:Qty : 1 on 08/19/2023 by Tc Gallardo MD at [facility] DEVICE Left: LEG [employer] [id number] / / Cap Scr Ncb Lk - [id number] Implanted:Qty : 6 on 08/19/2023 by Tc Gallardo MD at [facility] DEVICE Left: LEG [employer] [id number] / / Procedures Procedure Name Priority Date/Time Associated Diagnosis Comments BASIC METABOLIC PANEL Routine 08/22/2023 7:05 AM CDT from Last 3 Months or Most Recently Relevant to Health Maintenance Results * (ABNORMAL) Basic Metabolic Panel (08/22/2023 7:05 AM CDT) [facility] Sodium 136 136 - 145 mmol/L 08/22/2023 8:02 AM CDT Potassium 3.8 3.5 - 5.1 mmol/L 08/22/2023 8:02 AM [facility] Chloride 99 98 - 109 mmol/L 08/22/2023 8:02 AM [facility] CO2 27 20 - 29 mmol/L 08/22/2023 8:02 AM [facility] Anion Gap 10 7 - 16 mmol/L 08/22/2023 8:02 AM [facility] Calcium 9.1 8.4 - 10.4 mg/dL 08/22/2023 8:02 AM [facility] BUN 29(H) 7 - 26 mg/dL 08/22/2023 8:02 AM [facility] Creatinine 0.96 0.55 - 1.02 mg/dL 08/22/2023 8:02 AM [facility] Glucose 180(H) 70 - 100 mg/dL 08/22/2023 8:02 AM [facility] Comment:The given reference range is for the fasting state. Non-fasting reference range for glucose is 70 - 180 mg/dL. GFR, Estimated >60 >60 mL/min/1.7 3m2 08/22/2023 8:02 AM [facility] Blood Venipuncture / Unknown 08/22/2023 7:05 AM CDT 08/22/2023 7:32 AM [facility] [address] Jermaine Díaz MD [address] [place] [address], [facility] [phone] from Last 3 Months or Most Recently Relevant to Health Maintenance Insurance MEDICARE MANAGED CARE BCBS BCBS [employer] Advance Directives * Full Code (Latest Code Status on File) Date Activated Date Inactivated Comments 08/18/2023 11:43 PM 08/26/2023 12:23 PM Care Teams Deicer Repairer Pneumatic Relationship Specialty Start Date End Date Myla Nassar DO [address] [place] [address] PCP - General Family Practice 08/22/23
--- OUTSIDE RECORDS SUMMARY | 2025-08-27 18:59 | XMS_ITS | Clinical Summary ---
Author Organization [facility] Address [address] [place] [address] Care Team Providers Care Insurance Licensing Supervisor Name Role Phone Elsewhere, Pcp Primary Care Provider Unavailabl e Source Comments Patient records contain information from all sites at [facility]. For routine questions regarding patient records, call [phone] during business hours, M-F 8:00 AM - 5:00 PM Central Time. Record requests for emergency care only can be directed to [phone] at any time.[facility] Allergies Active Allergy Reactions Criticality Noted Date Comments Oxycodone-Acetaminophen Nausea Only 02/15/2014 Nausea, vomiting, headache, dizziness Medications allopurinoL (ZYLOPRIM) 100 mg tablet Take 2 tablets by mouth in the morning, and 1 tablet by mouth in the evening. 2 Active amLODIPine (NORVASC) 2.5 mg tablet Take 2.5 mg by mouth daily. 2 Active ampicillin (PRINCIPEN) 500 mg capsule Take 2,000 mg po prior to dental procedure 1 Active Contour Next Test Strips strips USE TO TEST BLOOD GLUCOSE LEVELS ONCE DAILY. 2 Active blood sugar diagnostic (glucose blood) strips Test once daily. Dx E11.9 2 Active calcium carbonate-vitamin D3 1,500 mg (600 mg calcium)-5 mcg (200 Unit) per tablet Take 1 tablet by mouth daily with breakfast. 8 Active cyanocobalamin (VITAMIN B12) 1,000 mcg tablet Take 1 tablet by mouth every other day. 9 Active famotidine (PEPCID) 40 mg tablet Take 20 mg by mouth 2 (two) times a day. 2 Active dulaglutide (TRULICITY) 1.5 mg/0.5 mL pen injector injection Inject 1.5 mg under the skin once a week. 1 Active ferrous sulfate 325 mg (65 mg iron) DR tablet Take 325 mg by mouth every other day. 1 Active fluticasone propionate (FLONASE) 50 mcg/actuation nasal spray Inhale 2 Sprays into both nostrils once daily. 2 Active gabapentin (NEURONTIN) 300 mg capsule 2 capsules in AM; 3 capsules in PM 5 Active glipiZIDE (GLUCOTROL XL) 5 mg 24 hr tablet Take 5 mg by mouth daily with breakfast. 2 Active hydroCHLOROthiazid e (HYDRODIURIL) 25 mg tablet Take 25 mg by mouth daily. 2 Active magnesium oxide 400 mg magnesium capsule Take 400 mg by mouth every evening. 0 Active meclizine (ANTIVERT) 25 mg tablet Take 25 mg by mouth as needed for vertigo. 2 Active montelukast (SINGULAIR) 10 mg tablet Take 10 mg by mouth at bedtime. 2 Active ondansetron ODT (ZOFRAN-ODT) 4 mg disintegrating tablet Dissolve 1 tablet in the mouth every 8 (eight) hours as needed. 1 Active simvastatin (ZOCOR) 40 mg tablet Take 40 mg by mouth at bedtime. 2 Active loratadine (CLARITIN) 10 mg tablet Take 10 mg by mouth daily. Active aspirin 81 mg chewable tablet Chew 1 tablet (81 mg total) 2 (two) times a day. 70 tablet 2 Active acetaminophen (TYLENOL) 500 mg tablet Take 2 tablets (1,000 mg total) by mouth every 6 (six) hours for 15 days. Wean to as needed as tolerated 120 tablet 2 Active celecoxib (CeleBREX) 100 mg capsule Take 1 capsule (100 mg total) by mouth 2 (two) times a day. 60 capsule 2 Active cyclobenzaprine (FLEXERIL) 10 mg tablet Take 10 mg by mouth at bedtime as needed. 2 Active losartan (COZAAR) 50 mg tablet Take 50 mg by mouth. 3 Active metoprolol tartrate (LOPRESSOR) 25 mg tablet Take 12.5 mg by mouth. 3 Active omeprazole (PriLOSEC) [address] capsule Take 20 mg by mouth 2 (two) times a day. 3 Active Active Problems Problem Noted Date Diagnosed Date Age Related Osteoporosis Fem ur With Pathological Fracture Initial Left 02/11/2024 Revision Knee Replacement Status Post Left 10/16 Arthroplasty Total Knee Replacement Status Post Left 10/14/2022 Pain Knee Left 10/07/2022 Pain Knee Bilateral 06/09/2022 Overview (06/09/2022): Added automatically from request for surgery [id number] Failed Total Knee Arthroplasty Initial Left 05/30 Overview (06/09/2022): Added automatically from request for surgery [id number] Hypertension Essential Primary Diabetes Mellitus Type 2 Gastroesophageal Reflux Disease Gout Hypomagnesemia Chronic Kidney Disease Anemia Iron Deficiency Resolved Problems Problem Noted Date Diagnosed Date Resolved Date Deficiency Vitamin B12 10/07 Encounters Date Type Department Care Team Description 08/18/2025 8:15 AM CDT Virtual Visit Department of Orthopedic Surgery in [address] [address] Mata Walker M.D. Age Related Osteoporosis Femur With Pathological Fracture Initial Left (HCC) (Primary Dx); Revision Knee Replacement Status Post Left Discharge Disposition: Home or Self Care 08/10/2025 10:03 AM CDT - 08/10/2025 11:59 PM CDT Hospital Encounter Department of Radiology, [facility], in [place], [place] [address] [place] [address] Mata Walker M.D. Age Related Osteoporosis Femur With Pathological Fracture Initial Left (HCC); Revision Knee Replacement Status Post Left Discharge Disposition: Home or Self Care 07/25/2025 Clinical Communication Department of Orthopedic Surgery in [address] [address] [place] P.A.-C., M.S. 07/17/2025 Clinical Communication Department of Orthopedic Surgery in [address] [address] [place] P.A.-C., M.S. After Visit Question 06/21/2025 1:00 PM CDT Virtual Visit Department of Orthopedic Surgery in [address] [address] [place] P.A.-C., M.S. Discharge Disposition: Home or Self Care 06/20/2025 Clinical Communication Department of Orthopedic Surgery in [address] [address] [place] P.A.-C., M.S. Billing questions from Last 3 Months Family History Medical History Relation Name Comments DM - Diabetes mellitus Brother Hypertension Father DM - Diabetes mellitus Mother Hypertension Mother Stroke Mother Relation Name Status Comments Brother Father Mother Social History Tobacco Use Types Packs/Day Years Used Date Smoking Tobacco: Never Smokeless Tobacco: Never Tobacco Cessation:Counseling Given: Not Answered Alcohol Use Standard Drinks/Week Comments Never 0 (1 standard drink = 0.6 oz pur e alcohol) Comments No Sex and Gender Information Value Date Recorded Sex Assigned at Not on file Legal Sex Female 9:10 PM FINANCE BUSINESS MANAGER Gender Identity Not on file Sexual Orientation Not on file Last Filed Vital Signs Vital Sign Reading Time Taken Comments Blood Pressure 136/60 10/28/2022 7:36 AM FINANCE BUSINESS MANAGER Pulse 69 10/28/2022 7:36 AM FINANCE BUSINESS MANAGER Temperature 36.7 C (98.1 F) 01/22/2024 1:51 PM FINANCE BUSINESS MANAGER Respiratory Rate 17 10/28/2022 7:36 AM FINANCE BUSINESS MANAGER Oxygen Saturation 97% 10/28/2022 7:36 AM FINANCE BUSINESS MANAGER Inhaled Oxygen Concentration - - Weight 101 kg (223 lb 12.3 oz) 01/22/2024 1:51 P M FINANCE BUSINESS MANAGER Height 156.2 cm (5' 1.5) 02/04/2023 8:29 AM FINANCE BUSINESS MANAGER Body Mass Index 41.6 02/04/2023 8:29 AM FINANCE BUSINESS MANAGER Plan of Treatment Health Maintenance Due Date Last Done Comments CT Colonography 1950 Cologuard 1950 Diabetic Eye Exam 1950 Diabetic Office Visit with Foot Exam 1950 FIT 1950 Hepatitis C Screening 1950 Office Visit for Blood Pressure Check / Re-check 1950 Urine Albumin 1950 Hepatitis B Vaccines (1 of 3 - Risk 3-dose series) 2010 Depression Screening (Annual PHQ-2) 11/30/2024 Fall Risk Screen (Annual) 11/30/2024 RSV vaccine - (32-36 weeks) or 60+ years (1 - 1-dose 75+ series) 2025 COVID-19 Vaccine ( season) 2025 08/26/2024, 09/22/2023, 12/25/2022, Additional history exists Influenza Vaccine (#1) 2025 , 09/22/2023, 08/28/2022, Additional history exists Hemoglobin A1C 01/12/2026 07/12/2025, 03/30, 01/09/2025, Additional history exists Creatinine Level (Kidney Function Test) 08/14/2026 08/14/2025, 07/12/2025, 05/03/2025, Additional history exists Mammogram 08/14/2026 08/14/2025, 07/31, 06/17/2024, Additional history exists Potassium Level 08/14/2026 08/14/2025, 06/30, 05/03/2025, Additional history exists Sodium Level 08/14/2026 08/14/2025, 06/30, 05/03/2025, Additional history exists Lipid (Cholesterol) Screening 07/05/2029 07/05/2024, 04/05/2024, 01/05/2024, Additional history exists Colonoscopy 07/04/2031 07/04/2021 Colorectal Cancer Screening 07/04/2031 DTaP,Tdap,and Td Vaccines (3 - Td or Tdap) 09/24/2032 09/24/2022, 2012, 09/28/2003 Pneumococcal vaccine (50+ years) Completed 02/04/2018, 10/11/2015, 10/22/2009 Zoster Vaccines Completed 03/27/2020, 12/31, 06/03/2011 Bone Density Scan (Osteoporosis Screen) Discontinued 02/22/2025 IPV Vaccines Aged Out No longer eligi ble based on patient's age to complete this topic Medical Devices Implanted Type Area Chief Operating Engineer Device Identifier Shelf Expiration Date Model / Serial / Lot Cmnt Nozzle Kt Bio-Prep - Sn/A - [id number] Implanted:Qty : 1 on 10/07/2022 by Mata Walker M.D. at [facility] Bone Cement Left: Knee Elpidio [id number] / N/A / [id number] Cmnt Bn Hi Visc Tobramycin 40 - Sn/A - [id number] Implanted:Qty : 2 on 10/07/2022 by Mata Walker M.D. at [facility] Bone Cement Left: Knee [employer] 02/27/2023 6197-9-001 / N/A / [id number] Cbl Fix Dll W/Slv Bead 2.0 - Sn/A - [id number] Implanted:Qty : 1 on 10/07/2022 by Mata Walker M.D. at [facility] Hardware e.g. pins/screws /rods Left: Knee [employer] 03/28/2027 6704-0-520 / N/A / [id number] Cbl Fix Dll W/Slv Bead 2.0 - Sn/A - [id number] Implanted:Qty : 1 on 10/07/2022 by Mata Walker M.D. at [facility] Hardware e.g. pins/screws /rods Left: Knee [employer] 04/27/2027 6704-0-520 / N/A / [id number] Gmrs Extension Piece Implanted:Qty : 1 on 10/07/2022 by Mata Walker M.D. at [facility] Knee Implant [employer] [id number] 02/11/2026 6495-6-030 / / [id number] Bsplt Tib Gmr Slv Mod Rot - [id number] Implanted:Qty : 1 on 10/07/2022 by Mata Walker M.D. at [facility] Knee Implant [employer] [id number] 11/12/2025 6481-2-140 / / [id number] Bsplt Tib Gmr Rot Xs/S/M - [id number] Implanted:Qty : 1 on 10/07/2022 by Mata Walker M.D. at [facility] Knee Implant [employer] [id number] 08/24/2027 6481-2-100 / / [id number] Small Left 65mm Distal Femoral Component Implanted:Qty : 1 on 10/07/2022 by Mata Walker M.D. at [facility] Knee Implant [employer] [id number] 07/17/2027 6495-2-010 / / [id number] 11mm X 127mm Mrs Curved Cemented Stem Implanted:Qty : 1 on 10/07/2022 by Mata Walker M.D. at [facility] Knee Implant [employer] [id number] 12/16/2025 6485-3-811 / / [id number] Small Bushing Implanted:Qty : 1 on 10/07/2022 by Mata Walker M.D. at [facility] Knee Implant [employer] [id number] 06/13/2026 6495-2-105 / / [id number] Small Bushing Implanted:Qty : 1 on 10/07/2022 by Mata Walker M.D. at [facility] Knee Implant [employer] [id number] 12/05/2025 6495-2-105 / / [id number] 10mm Tibial Insert Implanted:Qty : 1 on 10/07/2022 by Mata Walker M.D. at [facility] Knee Implant [employer] [id number] 02/13/2026 6481-3-210 / / [id number] 3 Degree Bumper Implanted:Qty : 1 on 10/07/2022 by Mata Walker M.D. at [facility] Knee Implant [employer] [id number] 10/31/2026 6481-2-133 / / [id number] Gmrs Axle Implanted:Qty : 1 on 10/07/2022 by Mata Walker M.D. at [facility] Knee Implant [employer] [id number] 01/08/2027 6495-2-115 / / [id number] Procedures Procedure Name Priority Date/Time Associated Diagnosis Comments DX FEMUR LEFT 2 VIEWS RAD - Routine (most inpatients and all outpatients) 08/10/2025 10:23 AM CDT Age Related Osteoporosis Femur With Pathological Fracture Initial Left (HCC) Revision Knee Replacement Status Post Left COMPREHENSIVE METABOLIC PANEL, S/P Routine 12/22/2023 7:58 AM FINANCE BUSINESS MANAGER Age Related Osteoporosis Femur With Pathological Fracture Initial Left (HCC) HEMOGLOBIN A1C, B Routine 10/08/2022 6:4 9 AM FINANCE BUSINESS MANAGER from Last 3 Months or Most Recently Relevant to Health Maintenance Results * DX Femur Left 2 Views [...] 2. Stable redo left total knee arthroplasty. Mata Walker M.D. [facility] PROC EDURES Final Result from Last 3 Months Insurance [facility] MEDICARE [employer] FINANCIAL SERVICES Advance Directives For more information, please contact: [phone] Documents on File Type Date Recorded Patient Health And Wellness Advisor Expl anation Advance Directives 09/27/2015 12:00 AM Katie high document. See document viewer. * Full Code (Latest Code Status on File) Date Activated Date Inactivated Comments 10/14/2022 2:07 PM 10/28/2022 12:12 PM Question Answer Comments Full Code: Discussed * Full Code Date Activated Date Inactivated Comments 10/07/2022 6:33 PM 10/14/2022 1:48 PM Question Answer Comments Full Code: Discussed Healthcare Agents on File Name Relationship Healthcare Agent Relationshi p Communication Nilam Villatoro Daughter First Alternate Health Car e Agent Care Teams Insurance Licensing Supervisor Relationship Specialty Start Date End Date Elsewhere, Pcp PCP - General Internal Medicine 10/14/22
--- OUTSIDE RECORDS SUMMARY | 2025-08-27 18:59 | XMS_ITS | Clinical Summary ---
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 On hold 0 01/28/20 08 Active calcium carbonate-choleca lciferol, 600mg-200 units, (CALCIUM 600 + D,3,) tablet Take 1 tablet by mouth 2 times daily with meals. 0 02/05/20 18 Active acetaminophen (TYLENOL EXTRA STRGTH) 500 mg tabletIndications :Spondylolisthesi s of lumbar region Take 2 tablets by mouth at bedtime. Max acetaminophen dose: 4000mg in 24 hrs. 500 tablet 12/22/19 20 Active magnesium oxide 400 mg magnesium capsule Take 400 mg by mouth once daily. 0 12/22/19 20 Active blood-glucose meterIndications: Type 2 diabetes mellitus without complication, without long-term current use of insulin (HC) Dispense meter, test strips, lancets covered by pt ins. E11.9 NIDDM type II - Test 1 time/day 100 strips With 3 refills. 1 Each 01/23/20 21 Active ampicillin (PRINCIPEN) 500 mg capsule Take 2,000 mg po prior to dental procedure 40 Capsule 09/25/20 21 Active ondansetron (ZOFRAN ODT) [address] 1 Tablet on the tongue 4 times daily if needed. 10/13/20 21 Active meclizine (ANTIVERT) 25 mg tabletIndications :Vertigo TAKE ONE TABLET BY MOUTH THREE TIMES DAILY NEEDED 90 Tablet 09/22/20 22 Active loratadine (CLARITIN) 10 mg tablet Take 10 mg by mouth. Active celecoxib (CELEBREX) 100 mg capsuleIndication s:Chronic pain of left knee Take 1 Capsule (100 mg) by mouth 2 times daily if needed for Pain. 36 Capsule 1 05/21/20 23 Active cyanocobalamin (Vitamin B-12) 1,000 mcg tabletIndications :Mild chronic anemia Take 0.5 Tablets (500 mcg) by mouth once daily. 01/05/20 24 Active lidocaine 5 % topical patchIndications: Chronic midline low back pain with left-sided sciatica Apply on dry, clean, hairless skin. Apply 1 patch to painful area of skin for up to to 12 hours within 24 hour period. 30 Patch 11 05/04/20 24 Active Walker - 4 wheelsIndications :Lumbar radiculopathy,Spo ndylolisthesis at L4-L5 level,Spinal stenosis of lumbar region with neurogenic claudication,Steno Pool Supervisor maynor midline low back pain with left-sided sciatica,Hip pain, left,Closed nondisplaced transverse fracture of shaft of left femur, sequela 4 wheeled walker with seat and brake, For home use. Length of need: 99 months. 1 Each 06/20/20 24 Active lancets (Microlet Lancet)Indication s:Type 2 diabetes mellitus without complication, without long-term current use of insulin (HC) use once daily. 100 Each 3 08/01/20 24 Active fluticasone (50 mcg per actuation) nasal solution (FLONASE)Indicati ons:Seasonal allergies Inhale 2 Sprays into both nostrils once daily. 48 g 09/20/20 24 Active cyclobenzaprine (FLEXERIL) 10 mg tabletIndications :Spondylolisthesi s at L4-L5 level,Lumbar radiculopathy,Spi nal stenosis of lumbar region with neurogenic claudication,Troc hanteric bursitis of both hips Take 1 Tablet (10 mg) by mouth at bedtime if needed for Muscle Spasm. 90 Tablet 1 09/21/20 24 Active blood sugar diagnostic (Contour Next Test Strips) stripIndications: Type 2 diabetes mellitus without complication, without long-term current use of insulin (HC) Test blood sugar once daily. 100 Each 3 10/20/20 24 Active ferrous sulfate 325 mg delayed release tabletIndications :Anemia of unknown etiology Take 1 Tablet (325 mg) by mouth once daily with a meal. Take with orange juice 11/14/20 24 Active rosuvastatin (CRESTOR) 20 mg tabletIndications :Hyperlipidemia, unspecified hyperlipidemia type Take 1 Tablet (20 mg) by mouth at bedtime. 90 Tablet 3 01/09/20 25 Active gabapentin (NEURONTIN) 300 mg capsuleIndication s:Back pain, unspecified back location, unspecified back pain laterality, unspecified chronicity Take 2 capsules by mouth in the morning and 3 capsules in the evening 450 Capsule 3 01/09/20 25 Active famotidine (PEPCID) 20 mg tabletIndications :Heartburn Take 1 Tablet (20 mg) by mouth two times daily. 180 Tablet 3 01/09/20 25 Active dulaglutide (TRULICITY) 4.5 mg/0.5 mL subcutaneous penIndications:Ty pe 2 diabetes mellitus without complication, without long-term current use of insulin (HC) Inject 4.5 mg subcutaneous once weekly. 6 mL 3 01/24/20 25 Active amoxicillin 500 mg capsule Take 500 mg by mouth. 01/10/20 25 Active cholecalciferol (VITAMIN D3) 5,000 unit capsule Take 5,000 units by mouth once daily. 40 units = 1 mcg (5000 units = 125 mcg) Active allopurinoL (ZYLOPRIM) 100 mg tabletIndications :Chronic gout, unspecified cause, unspecified site Take 2 tablets by mouth in the morning and 1 tablet in the evening. 90 Tablet 07/02/20 25 Active metoprolol tartrate (LOPRESSOR) 25 mg tabletIndications :Essential hypertension Take 0.5 Tablets (12.5 mg) by mouth two times daily. Patient decreased dosage 90 Tablet 3 07/12/20 25 Active hydroCHLOROthiazi de 25 mg tabletIndications :Essential hypertension Take 1 Tablet (25 mg) by mouth once daily. 90 Tablet 2 07/12/20 25 Active montelukast (SINGULAIR) 10 mg tabletIndications :Seasonal allergies Take 1 Tablet (10 mg) by mouth at bedtime. 90 Tablet 2 07/12/20 25 Active tirzepatide (Mounjaro) 5 mg/0.5 mL penIndications:Ty pe 2 diabetes mellitus with diabetic polyneuropathy, without long-term current use of insulin (HC) Inject 5 mg subcutaneous once weekly for 28 days. 2 mL 08/18/20 25 025 Active tirzepatide (Mounjaro) 7.5 mg/0.5 mL penIndications:Ty pe 2 diabetes mellitus with diabetic polyneuropathy, without long-term current use of insulin (HC) Inject 7.5 mg subcutaneous once weekly for 28 days. 2 mL 09/15/20 25 025 Active pen tirzepatide (Mounjaro) 10 mg/0.5 mL penIndications:Ty pe 2 diabetes mellitus with diabetic polyneuropathy, without long-term current use of insulin (HC) Inject 10 mg subcutaneous once weekly for 28 days. 2 mL 10/13/20 25 025 Active tirzepatide (Mounjaro) 12.5 mg/0.5 mL penIndications:Ty pe 2 diabetes mellitus with diabetic polyneuropathy, without long-term current use of insulin (HC) Inject 12.5 mg subcutaneous once weekly for 28 days. 2 mL 11/10/20 25 026 Active tirzepatide (Mounjaro) 15 mg/0.5 mL penIndications:Ty pe 2 diabetes mellitus with diabetic polyneuropathy, without long-term current use of insulin (HC) Inject 15 mg subcutaneous once weekly. 6 mL 3 12/08/19 26 Active losartan (COZAAR) 100 mg tabletIndications :Essential hypertension Take 1 Tablet (100 mg) by mouth once daily. (change in strength) 90 Tablet 3 08/01/20 25 Active CPAPIndications:O SA (obstructive sleep apnea) RESMED CPAP (E0601) machine for home use at pressure: 11.6 cmw, Choice of mask (A7030 or A7034) w/full face cushion (A7031) x1/mo, nasal cushion (A7032) x2/mo, or nasal pillows (A7033) x 2/mo; Length of Need: 99 months; Frequency of use: Daily 1 Each 08/23/20 25 Active methylPREDNISolon e (Medrol (Ricardo)) 4 mg tabletIndications :Lumbar radiculopathy Take by mouth as instructed per packaging. 21 Tablet 08/24/20 25 Active oxyCODONE (ROXICODONE) 5 mg immediate release tabletIndications :Hip pain, left,Chronic midline low back pain with left-sided sciatica Take 1 Tablet (5 mg) by mouth every 6 hours if needed for Pain. 12 Tablet 08/24/20 25 Active oxyCODONE (ROXICODONE) 5 mg immediate release tabletIndications :Chronic midline low back pain with left-sided sciatica,Hip pain, left Take 1 Tablet (5 mg) by mouth every 6 hours if needed for Pain. 12 Tablet 06/20/20 24 025 Discontin ued(Reord er (E-cancel not sent)) losartan (COZAAR) 50 mg tabletIndications :Essential hypertension Take 1 Tablet (50 mg) by mouth once daily. (change in strength) 90 Tablet 3 01/09/20 25 025 Discontin ued(*Avai lability/ Formulary change/Co st of medicatio n) CPAPIndications:O SA (obstructive sleep apnea) RESMED CPAP (E0601) machine for home use at pressure: 5-15cmw, Choice of mask (A7030 or A7034) w/full face cushion (A7031) x1/mo, nasal cushion (A7032) x2/mo, or nasal pillows (A7033) x 2/mo; Length of Need: 99 months; Frequency of use: Daily 1 Each 05/02/20 25 025 Discontin ued(Reord er (E-cancel not sent)) tirzepatide (Mounjaro) 2.5 mg/0.5 mL penIndications:Ty pe 2 diabetes mellitus with diabetic polyneuropathy, without long-term current use of insulin (HC) Inject 2.5 mg subcutaneous once weekly for 28 days. 2 mL 07/21/20 25 025 Active Problems Problem Noted Date Diagnosed Date Vitamin D deficiency 02/02/2024 Osteopenia of neck of right femur 11/13/2023 Anemia of unknown etiology 11/13/2023 Type 2 diabetes mellitus wit h other specified complication, without long-term current use of insulin 06/11/2022 Class 3 severe obesity with body mass index (BMI) of 40.0 to 44.9 in adult, unspecified obesity type, unspecified whether serious comorbidity present 06/11/2022 Pain due to total left knee replacement 03/18/20 22 Hypertension 11/06/2021 Chronic pain of left knee 02/10/2020 History of revision of total replacement of left knee joint 02/10/2020 CRF (chronic renal failure), stage 3 (moderate) 09/07/2019 Iron deficiency anemia due to chronic blood loss 02/11/2016 Overview (09/24/2022): Colonoscopy 06/2021: at anal opening inflammatory polyp tissue, Biopsy benign.felt to be likely the source of bleeding. Follow up colonoscopy in 10 years Failure of total knee replacement 09/03/2015 Obesity 06/18/2015 Overview (06/18/2015): Weight 238.2 at [employer] check 2014 Spondylolisthesis of lumbar region 11/03/2013 Bulging lumbar disc at L4-5 11/03/2013 Lumbar radiculopathy 11/03/2013 Diarrhea 07/22/2013 Overview (07/05/2021): Colonoscopy 06/2013 normal repeat in 10 years EGD 09/2016 normal Flexible sigmoidoscopy 09/2016 hemorrhoids, no colitis Colonoscopy 06/2021 normal biopsies, inflammatory polyp at the rectal opening, repeat in 10 years Lung nodule 06/07/2012 Overview (09/23/2018): Stable on follow up US ACP (advance care planning) 04/23/2012 Overview (04/23/2012): Patient has identified Health Care Agent(s): Yes Add Health Care Agents: Yes Health Care Agent(s): Primary Health Care Agent: Joe Riley Relationship: spouse Secondary Health Care Agent: Nilam Horne Relationship: daughter (C) Conservator: Relationship: Phone: Guardian: Relationship: Phone: Patient has Advance Care Plan Documents (Health Care Directive, POLST): Yes Advance Care Plan Documents: Health Care Directive Patient has identified Specific Treatment Preferences: Yes Specific Treatment Preferences: Code Status: CPR/Attempt Resuscitation Goals of Treatment: Limited Interventions and treat reversible conditions. Provide interventions aimed at treatment of new or reversible illness/injury or non-life threatening chronic conditions. Duration of invasive or uncomfortable interventions should generally be limited. If able to recognize family, would want limited trial for one week of the following interventions: respirator, blood transfusions and antibiotics., I do not want feeding tubes or dialysis. Interventions and Treatments: Accord to limitations above. Antibiotics: - Use Aggressive antibiotic treatment Nutrition/Hydration: Offer food and liquids by mouth IV fluid administration Transfusion: - Blood products for comfort/relief of symptoms only Dialysis: - No dialysis Assessment & Plan (04/23/2012 7:57 AM CDT): Advance Care Planning: Basic Interview Session Advance Care Planning discussion completed with Kina Riley and her Health Care Agent, , Joe Riley on 04/15/[address] [facility] conference room.. Patient and family provided with: Health Care Directive Goals and Values: Patient/family identified factors that may influence treatment preferences: Understanding of illness: Has diabetes managed with diet and oral medication and well controlled hypertension. 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 Kina would desire Home Care or Hospice if appropriate for for medical condition. Treatment Choices: If Kina were suddenly injured and her chances of recovery were 5 out of 100, she WOULD NOT want ongoing life-prolonging treatments such as a ventilator/respirator, feeding tube, etc. Reviewed CPR fact sheet with Kina. If she had a sudden event that caused her heart and breathing to stop she WOULD want CPR attempted unless her provider determines any of the following: She has an incurable illness or injury and is dying; She has no reasonable chance of survival if her heart stops; She has little chance of half-way survival if her heart stops and the process of resuscutation would cause significant suffering. Documents Completed During Advance Care Planning Session: Health Care Directive completed and scanned into medical record. Recommendations/Plan: Kina was encouraged to continue advance care planning discussions with her family and Live In Housekeeper Nanny offered phone consulation with sock examiner to review her advance care plan if any concerns. Kina and her health care agent to review Health Care Directive with her provider at the next office visit. Resources identified during advance care planning session that patient may benefit from are: Home Care and/ or Hospice when/if medical condition warrants. Care Navigation Help Desk brochure provided for access to other resources if needed. Interviewer: Gloria Martínez, RN 04/15/2012 Tinea corporis 06/03/2011 Hyperlipidemia 07/03/2008 Type 2 diabetes mellitus without complication Essential hypertension 11/01/2007 Resolved Problems Problem Noted Date Diagnosed Date Resolved Date History of left knee replacement 02/10/2020 10/31/2020 History of total right knee replacement 02/10/2020 10/31/2020 Adrenal incidentaloma 06/07/20122019 Overview (10/31/2020): Stable on CT scan 2011 - 2016 retirement (current) use of anticoagulants 11/01/2007 07/03/2008 Encounters Date Type Department Care Team Description 08/27/2025 Nurse Triage [address] [address] John Em MD Leg Pain/problem 08/24/2025 2:45 PM CDT Ancillary Procedure [facility] [address] [place] [address] Arrived 08/24/2025 2:30 PM CDT Ancillary Procedure [facility] [address] [place] [address] Arrived 08/24/2025 1:40 PM CDT Office Visit [address] [address] John Em MD Follow Up (Left buttock/back pain radiates to left hip/ groin and leg pain into ankle) 08/23/2025 11:00 AM CDT Office Visit [facility] [address] [place] [address] Holger Zuniga MD Sleep Follow-up (cpap) 08/23/2025 10:15 AM CDT Orders Only [facility] [address] [place] [address] [facility], [place] [facility] 08/23/2025 Telephone [facility] [address] [facility] [address] John Em MD Follow Up (PATIENT IS LOOKING FOR A CALL BACK ) 08/23/2025 Travel 08/22/2025 Telephone [facility] [address] [facility] [address] John Em MD Questions (Left leg groin and buttock pain ) 08/16/2025 10:45 AM CDT Office Visit [address] [phone] Rosa Isela Velazquez, TOMY Follow Up (Iron deficiency anemia due to chronic blood loss) 08/16/2025 Travel 08/14/2025 11:00 AM CDT Ancillary Procedure [facility] [address] [facility] [address] 08/14/2025 10:15 AM CDT Orders Only [facility] [address] [place] [address] Lab, [place] [facility] 08/14/2025 Travel 08/07/2025 Orders Only [facility] Scanner 1 scan: (1-Ord) [facility], 08/07/2025 08/01/2025 Refill [facility] [address] [facility] [address] Myla Nassar, DO Refill Request; [place] 07/21/2025 9:45 AM CDT Ancillary Procedure [facility] [address] [facility] [address] 07/21/2025 Travel 07/19/2025 Telephone [facility] [address] [place] [address] [place], [facility] Appointment 07/12/2025 8:30 AM CDT Office Visit [facility] [address] [facility] [address] Myla Nassar DO Diabetes (6 month check ) 07/12/2025 Travel 06/30/2025 Refill [facility] [address] [facility] [address] Myla Nassar DO Refill Request (Allopurinol) from Last 3 Months Immunizations Immunization Administration Dates Next Due COVID-19 vaccine (Pfizer-Bio NTech 30mcg/0.3mL) 12YO+ BIVALENT PF, MDV 12/25/2022 COVID-19 vaccine (Pfizer-Bio NTech 30mcg/0.3mL) 12YO+ RAIMUNDO-SUCROSE PF, MDV 06/11/2022 COVID-19 vaccine (Pfizer-Bio NTech 30mcg/0.3mL) PF, MDV 09/25/2021,02/22/2021,02/01/2021 Influenza A (H1N1), Inactivated 10/05/2009 Influenza Virus, Unspecified 08/15/2015 Influenza, High-dose Inactivated 08/26/2024,10/0 07/2019,08/12/2016 Influenza, High-dose Quadriv alent Inactivated 09/22/2023 Influenza, IIV3 (Age >=3 years) 09/13/20 13,09/20/2010,08/17/2009,2002 Influenza, IIV4 08/07/2016 Influenza, Inactivated AIIV4 (Age 65+ Years) Preserv Free 08/28/2022,09/25/2021,08/13/2020 Influenza, Inactivated IIV3 (Age 65+ Years) Preserv Free 09/07/2019,08/30/2018,09/01/2017 Pneumococcal Poly,23-Valent (Pneumovax) 02/04/2018,10/22/2009 Pneumococcal conj 13-Valent (Prevnar 13) 10/11/2015 Td (Age >=7 Years) 09/28/2003 Tdap 09/24/2022,2012 Zoster (Shingrix-RZV, recombinant) 03/27/2020, Zoster (Zostavax-ZVL, live) 06/03/2011 Family History Medical History Relation Name Comments Cancer Father Hyperlipidemia Father Hypertension Father Heart Disease Maternal Aunt Hyperlipidemia Mother Hypertension Mother Stroke Mother age 71 stroke Heart Disease Paternal Grandfather Cancer-breast No Family History Relation Name Status Comments Father Maternal Aunt Mother Paternal Grandfather Social History Tobacco Use Types Packs/Day Years Used Date Smoking Tobacco: Never Smokeless Tobacco: Never Tobacco Cessation:Counseling Given: Yes Alcohol Use Standard Drinks/Week Comments No 0 (1 standard drink = 0.6 oz pur e alcohol) PHQ-2 Answer Date Recorded PHQ-2 TOTAL SCORE 0 01/09/2025 Social Connections Answer Date Recorded Do you often feel lonely or isolated from those around you? 0 01/09/2025 Financial Resource Strain Answer Date R ecorded Difficulty of Paying Living Expenses 3 01/09/2025 Difficulty of Paying Living Expenses Not on file 01/09/2025 Food Insecurity Answer Date Recorded Do you worry your food will run out before you are able to buy more? 1 01/09/2025 Transportation Needs Answer Date Record ed Does lack of transportation keep you from medica l appointments? 1 01/09/2025 Does lack of transportation keep you from work, meetings or getting things that you need? 1 01/09/2025 Housing Stability Answer Date Recorded What is your housing situation today? 1 01/09/2025 Utilities Answer Date Recorded Do you have trouble paying f or utilities (for example, heat, electricity, water, phone)? 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 Gender Identity Not on file Sexual Orientation Not on file Occupation Industry Job Start Date Job End Date Not on file Not on file Not on file Not on file Obstetrics History Para Term AB IAB SAB Ectopic Multiple Livin g Live Births 3 3 3 0 0 0 0 0 0 Date Outcome GA Total Labor Labor/2nd/3rd Weight Sex Type Anes PTL Madeleine A1 A5 Name Clin Term Term Term Last Filed Vital Signs Vital Sign Reading Time Taken Comments Blood Pressure 130/76 08/24/2025 1:43 PM CDT Pulse 70 08/24/2025 1:43 PM CDT Temperature 36.6 C (97.9 F) 08/16/2025 10:39 AM CDT Respiratory Rate 16 08/16/2025 10:39 AM CDT Oxygen Saturation 98% 08/24/2025 1:43 PM CDT Inhaled Oxygen Concentration - - Weight 98.4 kg (217 lb) 08/24/2025 1:43 PM CDT Height 154.5 cm (5' 0.83) 05/02/2025 2:46 PM CD T Body Mass Index 41.23 05/02/2025 2:46 PM CDT Plan of Treatment Upcoming Encounters Date Type Department Care Team (Late st Contact Info) Description 10/12/2025 10:00 AM BOTTLE HOUSE CLEANERS SUPERVISOR Office Visit [facility] [address] [place] [address] Abdelrahman Emmanuel MD [address] [place] [address] 10/17/2025 8:55 AM BOTTLE HOUSE CLEANERS SUPERVISOR Office Visit [facility] [address] [place] [address] Myla Nassar DO [address] [place] [address] 11/13/2025 10:15 AM BOTTLE HOUSE CLEANERS SUPERVISOR Orders Only [facility] [address] [place] [address] [place] 11/15/2025 12:45 PM BOTTLE HOUSE CLEANERS SUPERVISOR Office Visit [facility] [address] [place] [address] Rosa Isela Velazquez, FULL STACK SOFTWARE DEVELOPER [address] [place] [address] Health Maintenance Due Date Last Done Comments RSV vaccine for adults or (1 - 1-dose 75+ series) 2025 COVID-19 vaccine series ( season) 2025 08/26/2024, 09/22/2023, 12/25/2022, Additional history exists Influenza Vaccine (#1) 2025 , 08/28/2022, 09/25/2021, Additional history exists Depression screening for age 12+ 01/09/2026 01/09/2025, 01/08/2024, 01/05/2024, Additional history exists Medicare Wellness for age 65+ 01/10/2026 01/09/2025, 01/05/2024, 12/25/2022, Additional history exists BMI (ht and wt on same day) for age 18+ 05/02/2026 05/02/2025, 01/09/2025, 01/05/2024, Additional history exists Lipids for age 45-75 07/12/2030 07/12/2025, 07/05/2024, 04/05/2024, Additional history exists Colonoscopy through age 75 07/04/203107/04, 07/04/2021, 07/04/2021, Additional history exists Tetanus booster 09/24/2032 09/24/2022, 05/01, 09/28/2003 Pneumococcal series for age 50+ Completed 02/04/2018, 10/11/2015, 10/22/2009 Hepatitis C screening for age 18-79 Completed 11/25/2019 Zoster (shingles) series for age 50+ Completed 03/27/2020, 01/10/2020, 06/03/2011 DEXA/DXA scan for age 65+ Completed 2024, 10/19/2023, 06/13/2020, Additional history exists Hepatitis B series for 19+ Aged Out N o longer eligible based on patient's age to complete this topic Procedures Procedure Name Priority Date/Time Associated Diagnosis Comments CBC WITH AUTO DIFFERENTIAL Routine 08/23/2025 10:05 AM CDT Iron deficiency anemia due to chronic blood loss [D50.0] CBC WITH AUTO DIFFERENTIAL Routine 08/23/2025 10:05 AM CDT Iron deficiency anemia due to chronic blood loss [D50.0] XR MAMMO SAGAR BILAT SCREEN Routine 08/14/2025 11:16 AM CDT Visit for screening mammogram CBC WITH AUTO DIFFERENTIAL Routine 08/14/2025 10:14 AM CDT Iron deficiency anemia due to chronic blood loss [D50.0] VITAMIN B12 Routine 08/14/2025 10:14 AM CDT Iron deficiency anemia due to chronic blood loss [D50.0] IRON PLUS IRON BINDING CAP Routine 08/14/2025 10:14 AM CDT Iron deficiency anemia due to chronic blood loss [D50.0] FERRITIN Routine 08/14/2025 10:14 AM CDT Iron deficiency anemia due to chronic blood loss [D50.0] COMP METABOLIC PANEL Routine 08/14/2025 10:14 AM CDT Iron deficiency anemia due to chronic blood loss [D50.0] CBC WITH AUTO DIFFERENTIAL Routine 08/14/2025 10:14 AM CDT Iron deficiency anemia due to chronic blood loss [D50.0] SCAN-EYE EXAM 08/07/2025 12:00 AM CDT US ABDOMEN LIMITED LIVER Routine 07/21/2025 10:08 AM CDT Hepatomegaly HEMOGLOBIN Routine 07/12/2025 9:29 AM CDT Iron deficiency anemia due to chronic blood loss FERRITIN Routine 07/12/2025 9:29 AM CDT Iron deficiency anemia due to chronic blood loss IRON PLUS IRON BINDING CAP Routine 07/12/2025 9:29 AM CDT Iron deficiency anemia due to chronic blood loss TSH WITH REFLEX Routine 07/12/2025 9:29 AM CDT Fatigue, unspecified type COMP METABOLIC PANEL Routine 07/12/2025 9:29 AM CDT Type 2 diabetes mellitus without complication, without long-term current use of insulin (HC) Hepatomegaly HEMOGLOBIN A1C MONITORING (POCT) Routine 07/12/2025 8:07 AM CDT Type 2 diabetes mellitus without complication, without long-term current use of insulin (HC) LIPID PANEL W REFLEX MEASURED LDL Routine 07/12/2025 8:07 AM CDT Type 2 diabetes mellitus without complication, without long-term current use of insulin (HC) URINE ALBUMIN TO CREATININE RATIO, RANDOM Routine 07/12/2025 8:06 AM CDT Type 2 diabetes mellitus without complication, without long-term current use of insulin (HC) XR DXA BONE DENSITY 2 SITES AXIAL Routine 02/22/2025 9:14 AM CDT Vitamin D deficiency 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 WHITE BLOOD CELL COUNT 4.5 3.8 - 10.8 Thousand/ uL 08/24/2025 3:31 AM CDT [facility] RED BLOOD CELL COUNT 3.48(L) 3.80 - 5.10 Million/u L 08/24/2025 3:31 AM CDT [facility] HEMOGLOBIN 11.8 11.7 - 15.5 g/dL 08/24/2025 3:31 AM CDT [facility] HEMATOCRIT 34.7(L) 35.0 - 45.0 % 08/24/2025 3:31 AM CDT [facility] MCV 99.7 80.0 - 100.0 fL 08/24/2025 3:31 AM CDT [facility] MCH 33.9(H) 27.0 - 33.0 pg 08/24/2025 3:31 AM CDT [facility] MCHC 34.0 32.0 - 36.0 g/dL 08/24/2025 3:31 AM CDT [facility] Comment: For adults, a slight decrease in the calculated MCHC value (in the range of 30 to 32 g/dL) is most likely not clinically significant; however, it should be interpreted with caution in correlation with other red cell parameters and the patient's clinical condition. RDW 13.2 11.0 - 15.0 % 08/24/2025 3:31 AM CDT [facility] PLATELET COUNT 144 140 - 400 Thousand/ uL 08/24/2025 3:31 AM CDT [facility] MPV 10.7 7.5 - 12.5 fL 08/24/2025 3:31 AM CDT [facility] NEUTROPHILS 65.2 % 08/24/2025 3:31 AM CDT [facility] LYMPHOCYTES 24.2 % 08/24/2025 3:31 AM CDT [facility] MONOCYTES 7.5 % 08/24/2025 3:31 AM CDT [facility] EOSINOPHILS 2.2 % 08/24/2025 3:31 AM CDT [facility] BASOPHILS 0.9 % 08/24/2025 3:31 AM CDT [facility] ABSOLUTE NEUTROPHILS 2934 1500 - 7800 cells/uL 08/24/2025 3:31 AM CDT [facility] ABSOLUTE LYMPHOCYTES 1089 850 - 3900 cells/uL 08/24/2025 3:31 AM CDT [facility] ABSOLUTE MONOCYTES 338 200 - 950 cells/uL 08/24/2025 3:31 AM CDT [facility] ABSOLUTE EOSINOPHILS 99 15 - 500 cells/uL 08/24/2025 3:31 AM CDT [facility] ABSOLUTE BASOPHILS 41 0 - 200 cells/uL 08/24/2025 3:31 AM CDT [facility] Blood BLOOD SPECIMEN / Unknown [facility] / Unknown 08/23/2025 10:05 AM CDT 08/23/2025 10:05 AM CDT us Rosa Isela Velazquez NP HEMATOLOGY Final Result [facility] [address] [place] [address], * XR MAMMO SAGAR BILAT SCREEN (08/14/2025 11:16 AM CDT) Anatomical Region Laterality Modality BREASTS, Breast Left, Breast Right Bilateral Mammography Impressions 08/14/2025 2:40 PM CDT There is no radiographic evidence for malignancy. Recommend annual mammograms. MAMMOGRAM ASSESSMENT: ACR 1 Negative PATIENTS: You will also receive a letter with your examination results in an easy to read format. If you have questions about your results, please contact your referring provider. Narrative 08/14/2025 2:40 PM CDT For Patients: As a result of the Cures Act, medical imaging exams and procedure reports are released immediately into your electronic medical record. You may view this report before your referring provider. If you have questions, please contact your health care provider. XR MAMMO SAGAR BILAT SCREEN [[id number]] CLINICAL HISTORY: This is an asymptomatic 75 y.o. patient. INDICATION FOR EXAM: Mammogram Screening. TECHNIQUE: CC and MLO views were obtained. This study was evaluated with the assistance of Computer-Aided Detection. Breast Tomosynthesis was used in interpretation. COMPARISON FILM: Yes 06/17/24 [facility] 06/15/23 [employer] FINDINGS: The breasts are almost entirely fatty. There are no dominant masses, suspicious micro calcifications or areas of architectural distortion. us Myla Madeleine Damianqra DO MAMMO Final Result * IRON PLUS IRON BINDING CAP (08/14/2025 10:14 AM CDT) Only the most recent of2 resultswithin the time period is included. IRON, TOTAL 67 45 - 160 mcg/dL 08/15/2025 4:13 AM CDT [facility] IRON BINDING CAPACITY 374 250 - 450 mcg/dL (calc) 08/15/2025 4:13 AM CDT [facility] % SATURATION 18 16 - 45 % (calc) 08/15/2025 4:13 AM CDT [email or web address] Blood BLOOD SPECIMEN / Unknown [facility] / Unknown 08/14/2025 10:14 AM CDT 08/14/2025 10:14 AM CDT Rosa Isela Velazquez NP CHEMISTRY Final Result [facility] [address] [place] [address], [place] [phone] * FERRITIN (08/14/2025 10:14 AM CDT) Only the most recent of2 resultswithin the time period is included. FERRITIN 99 16 - 288 ng/mL 08/15/2025 5:56 AM CDT [facility] Blood BLOOD SPECIMEN / Unknown [facility] / Unknown 08/14/2025 10:14 AM CDT 08/14/2025 10:14 AM CDT us Rosa Isela Velazquez FULL STACK SOFTWARE DEVELOPER CHEMISTRY Final Result Performing Organization Address [facility]/ZIP Co de Phone Number [facility] [address] [address], * VITAMIN B12 (08/14/2025 10:14 AM CDT) VITAMIN B12 863 200 - 1100 pg/mL 08/15/2025 5:56 AM CDT [facility] Blood BLOOD SPECIMEN / Unknown [facility] / Unknown 08/14/2025 10:14 AM CDT 08/14/2025 10:14 AM CDT us Rosa Isela Velazquez FULL STACK SOFTWARE DEVELOPER CHEMISTRY Final Result Performing Organization Address [facility]/ZIP Co de Phone Number [facility] [address] [address], * (ABNORMAL) COMP METABOLIC PANEL (08/14/2025 10:14 AM CDT) Only the most recent of2 resultswithin the time period is included. SODIUM 139 135 - 146 mmol/L 08/15/2025 4:13 AM CDT [facility] POTASSIUM 4.1 3.5 - 5.3 mmol/L 08/15/2025 4:13 AM CDT [facility] CHLORIDE 104 98 - 110 mmol/L 08/15/2025 4:13 AM CDT [facility] CARBON DIOXIDE 23 20 - 32 mmol/L 08/15/2025 4:13 AM CDT [facility] GLUCOSE 285(H) 65 - 99 mg/dL 08/15/2025 4:13 AM CDT [facility] Comment: Fasting reference interval For someone without known diabetes, a glucose value >125 mg/dL indicates that they may have diabetes and this should be confirmed with a follow-up test. CALCIUM 9.8 8.6 - 10.4 mg/dL 08/15/2025 4:13 AM CDT [facility] CREATININE 1.16(H) 0.60 - 1.00 mg/dL 08/15/2025 4:13 AM CDT [facility] BUN/CREATININE RATIO 31(H) 6 - 22 (calc) 08/15/2025 4:13 AM CDT [facility] EGFR 49(L) > OR = 60 mL/min/1. 73m2 08/15/2025 4:13 AM CDT [facility] ALBUMIN 4.4 3.6 - 5.1 g/dL 08/15/2025 4:13 AM CDT [facility] PROTEIN, TOTAL 6.7 6.1 - 8.1 g/dL 08/15/2025 4:13 AM CDT [facility] BILIRUBIN, TOTAL 0.4 0.2 - 1.2 mg/dL 08/15/2025 4:13 AM CDT [facility] ALKALINE PHOSPHATASE 40 37 - 153 U/L 08/15/2025 4:13 AM CDT [facility] ALT 26 6 - 29 U/L 08/15/2025 4:13 AM CDT [facility] AST 31 10 - 35 U/L 08/15/2025 4:13 AM CDT [facility] UREA NITROGEN (BUN) 36(H) 7 - 25 mg/dL 08/15/2025 4:13 AM CDT [facility] GLOBULIN 2.3 1.9 - 3.7 g/dL (calc) 08/15/2025 4:13 AM CDT [facility] ALBUMIN/GLOBULIN RATIO 1.9 1.0 - 2.5 (calc) 08/15/2025 4:13 AM CDT [email or web address] Blood BLOOD SPECIMEN / Unknown [facility] / Unknown 08/14/2025 10:14 AM CDT 08/14/2025 10:14 AM CDT us Rosa Isela Velazquez NP CHEMISTRY Final Result [facility] [address] [place] [address], * SCAN-EYE EXAM (08/07/2025 12:00 AM CDT) us Scanner OTHER Final Result * US ABDOMEN LIMITED LIVER (07/21/2025 10:08 AM CDT) Anatomical Region Laterality Modality LIVER Ultrasound 07/21/2025 11:5 0 AM CDT Impressions 07/21/2025 11:50 AM CDT Hepatomegaly with hepatic steatosis. Status post cholecystectomy without biliary obstruction. Dictated by Tc Galan MD @ 07/21/2025 11:50:32 AM (Electronically Signed) Narrative 07/21/2025 11:50 AM CDT For Patients: As a result of the Cures Act, medical imaging exams and procedure reports are released immediately into your electronic medical record. You may view this report before your referring provider. If you have questions, please contact your health care provider. INDICATION: Hepatomegaly COMPARISON: CT 05/07/2016 TECHNIQUE: Real time kimbrough scale imaging and color Doppler analysis was performed of the right upper quadrant. FINDINGS: The liver measures 19.9 cm. The liver is diffusely increased in echotexture. No intrahepatic mass. Normal aorta. There is no evidence of ascites. The gallbladder is absent. The common bile duct is of normal size and measures 4 mm in diameter at the level of the janette hepatis. The visualized pancreas appears normal. There is no evidence of a stone or hydronephrosis within the right kidney. The right kidney measures 9.8 cm in length. Procedure Note Tc Galan MD - 07/21/2025 For Patients: As a result of the Cures Act, medical imagingexams and procedure reports are released immediately into your electronicmedical record. You may view this report before your referring provider.If you have questions, please contact your health care provider. INDICATION: Hepatomegaly COMPARISON: CT 05/07/2016 TECHNIQUE: Real time kimbrough scale imaging and color Doppler analysis was performed ofthe right upper quadrant. FINDINGS: The liver measures 19.9 cm. The liver is diffusely increased inechotexture. No intrahepatic mass. Normal aorta. There is no evidence ofascites. The gallbladder is absent. The common bile duct is of normal sizeand measures 4 mm in diameter at the level of the janette hepatis. Thevisualized pancreas appears normal. There is no evidence of a stone orhydronephrosis within the right kidney. The right kidney measures 9.8 cmin length. IMPRESSION: Hepatomegaly with hepatic steatosis. Status post cholecystectomy withoutbiliary obstruction. Dictated by Tc Galan MD @ 07/21/2025 11:50:32 AM (Electronically Signed) us Myla Madeleine Shaqra DO US Final Result * TSH WITH REFLEX (07/12/2025 9:29 AM CDT) TSH W/REFLEX TO FT4 2.79 0.40 - 4.50 mIU/L [facility] Blood BLOOD SPECIMEN / Unknown 07/12/2025 9:29 AM CDT 07/12/2025 9:30 AM CDT us Myla Madeleine Shaqra DO CHEMISTRY Final Result Performing Organization Address City/[facility]/ZIP Co de Phone Number [facility] [address] [place] [phone], [place] [phone] [facility] [address] [place] [phone] * HEMOGLOBIN (07/12/2025 9:29 AM CDT) HEMOGLOBIN 11.7 11.7 - 15.5 g/dL [facility] Blood BLOOD SPECIMEN / Unknown 07/12/2025 9:29 AM CDT 07/12/2025 9:30 AM CDT us Myla Madeleine Shaqra DO HEMATOLOGY Final Result Performing Organization Address City/[facility]/ZIP Co de Phone Number [facility] [address] [place] [address], [place] [phone] [facility] [address] [place] [address] * (ABNORMAL) LIPID PANEL W REFLEX MEASURED LDL (07/12/2025 8:07 AM CDT) CHOLESTEROL, TOTAL 139 <200 mg/dL [facility] HDL CHOLESTEROL 46(L) > OR = 50 mg/dL [facility] TRIGLYCERIDES 393(H) <150 mg/dL [facility] Comment: If a non-fasting specimen was collected, consider repeat triglyceride testing on a fasting specimen if clinically indicated. Rachel et al. J. of Clin. Lipidol. 2015;9:129-169. LDL-CHOLESTEROL 52 mg/dL (calc) [facility] Comment: Reference range: <100 Desirable range <100 mg/dL for primary prevention; <70 mg/dL for patients with CHD or diabetic patients with > or = 2 CHD risk factors. LDL-C is now calculated using the Abdelrahman-Sienna calculation, which is a validated novel method providing better accuracy than the Friedewald equation in the estimation of LDL-C. Abdelrahman SS et al. MARISOL. 2013;310(19): 6583-0399 (http://education.cliniq.ly/faq/FEF316) CHOL/HDLC RATIO 3.0 <5.0 (calc) [facility] NON HDL CHOLESTEROL 93 <130 mg/dL (calc) [facility] Comment: For patients with diabetes plus 1 major ASCVD risk factor, treating to a non-HDL-C goal of <100 mg/dL (LDL-C of <70 mg/dL) is considered a therapeutic option. Blood BLOOD SPECIMEN / Unknown 07/12/2025 8:07 AM CDT 07/12/2025 8:08 AM CDT us Myla Nassar DO CHEMISTRY Final Result [facility] [address] [place] [address], [facility] [address] [place] [address] * (ABNORMAL) HEMOGLOBIN A1C MONITORING (POCT) (07/12/2025 8:07 AM CDT) POC HEMOGLOBIN A1C 7.4(H) <6.0 % OF TOTAL HGB [facility] Comment: Any point of care results exhibiting inconsistency with the patient's clinical status should be repeated using a different testing method. Blood BLOOD SPECIMEN / Unknown 07/12/2025 8:07 AM CDT 07/12/2025 8:07 AM CDT Myla Nassar DO CHEMISTRY Final Result [facility] [address] [place] [address], [facility] [address] [place] [address] * URINE ALBUMIN TO CREATININE RATIO, RANDOM (07/12/2025 8:06 AM CDT) Pathologist [facility] ALB RAND URINE 32.4 mg/L 07/12/2025 3:59 PM CDT [facility] CREATININE,URIN E 1.28 g/L 07/12/2025 3:59 PM CDT [facility] ALBUMIN TO CREATININE RATIO,RAND UR 25.3 <30.0 mg/g creat 07/12/2025 3:59 PM CDT [facility] Urine URINE SPECIMEN / Unknown Non-Blood / Unknown 07/12/2025 8:06 AM CDT 07/12/2025 8:06 AM CDT Narrative [facility] - 07/12/2025 3:59 PM CDT If Albumin to Creatinine Ratio is elevated, consider the following: Elevations seen with incipient nephropathy associated with diabetes mellitus or hypertension. Stress, exercise,hematuria, and urinary tract infection may also produce elevated results. If clinically indicated, confirm with 24 Hour Albumin to Creatinine Ratio. us Myla Salgadoqra URINE Final Result [facility] [address] [place] [address], * (ABNORMAL) XR DXA BONE DENSITY 2 SITES AXIAL (02/22/2025 9:14 AM CDT) Anatomical Region Laterality Modality Spine, HIPS, HIPL, HIPR Other Impressions 02/24/2025 3:58 PM CDT Osteopenia. No significant change at all sites scanned compared to all prior scans. Due to the stability of the bone density, continue present medication if indicated. RECOMMENDATIONS: The National Osteoporosis Foundation recommends pharmacologic treatment for patients with T-scores of -2.5 or less, patients with prior history of fragility fractures, or patients with 10-year probability of greater than 3% at hips or greater than 20% of suffering major osteoporotic fractures. Recommend continued optimization of calcium and vitamin D intake through dietary means and/or supplementation and regular exercise. Continue current Romosozumab (Evenity) medication treatment. Repeat DXA in 2 years. Aletha Foss PA-C [facility] 02/24/2025 Narrative 02/24/2025 3:58 PM CDT For Patients: Results are automatically released to your [facility] ([employer]) account once available, in compliance with federal regulations. This means that you may see your results before your provider has had a chance to review them. Please allow 2-3 business days for your provider to comment on the results. XR DXA Bone Mineral Density (BMD) EXAM LOCATION: [address] [address] PATIENT NAME: Kina Riley DATE OF : 1950 EXAM DATE: 02/22/2025 REQUESTING PROVIDER: Sea Hammonds PA-C GENDER AT : female HEIGHT: 5' 0.83 (01/09/2025) WEIGHT: 215 lb (01/31/2025) MENOPAUSAL STATUS: Postmenopausal RACE/ETHNICITY: White RISK FACTORS: History of Fragility Fracture (at a major site), Renal Failure, and White Race CURRENT MEDICATION FOR BONE LOSS: Romosozumab (Evenity) INDICATION: Follow-up of existing osteoporosis COMPARISON DATE(S): 2022 DXA scans are compared to prior studies for a patient only when the two (or more) studies were performed on the same scanner. It is not possible to compare data generated on one scanner to data from another because there are not standards in DXA equipment. This applies even if the two scanners are made by the same operations architect. PROCEDURE: Dual-energy x-ray absorptiometry performed with routine technique. Reporting is completed in the form of a T-score. The T-score represents the standard deviation from peak bone mass based on young healthy adult. A Z-score is used for diagnosis in premenopausal women, and for men under the age of 50. FINDINGS: RESULT LUMBAR SPINE L1 - L4 (L2) BMD: 1.329 g/cm2 T-Score: + 1.1 Z-Score: + 1.8 Change from prior in 2022: Increase 2.8%. RESULTS FEMUR Right femoral neck BMD: 0.844 g/cm2 T-Score: - 1.4 Z-Score: - 0.2 Change from prior in 2022: Decrease 3.0%. Right hip BMD: 0.979 g/cm2 T-Score: - 0.2 Z-Score: + 0.7 Change from prior in 2022: Decrease 0.3%. RESULT FOREARM Left Forearm distal radius BMD: 0.858 g/cm2 T-Score: - 0.2 Z-Score: + 2.0 Change from prior in 2022: Decrease 0.9%. WHO criteria: Normal: T-score at or above -1 SD Osteopenia: T-score between -1.1 and -2.4 SD Osteoporosis: T-score at or below -2.5 SD us Sea Hammonds PA-C DEXA Final Resul t * COLONOSCOPY (07/04/2021 8:59 AM CDT) 07/04/2021 8:59 AM CDT Narrative Transcriptions Abdelrahman Emmanuel MD - 07/04/2021 10:41 AM CDT Patient Name: Kina Riley Procedure Date: 07/04/2021 Gender: Female Date of : 1950 Admit Type: Outpatient Procedure: Colonoscopy Proceduralist: Abdelrahman Emmanuel MD , Silvia Jackson (Nurse) Referring MD: Rosa Isela Siddiqui Indications/Pre-Op Diagnosis: Evaluation of unexplained GI bleeding presenting with Hematochezia, Clinically significant diarrhea of unexplained origin, Last colonoscopy: June 2013 Medications: Fentanyl 50 micrograms IV, Midazolam 5 mgIV Procedure Description: The patient had risks, benefits and alternatives explained to andgave informed consent. The patient had a stable cardiopulmonary status and judged an adequate candidate for conscious sedation. The Colon [id number] [id number] was passed through the anus and advancedto 6 cm into the ileum. The colonoscopy was performed withoutdifficulty. The patient tolerated the procedure well. The quality of the bowel preparation was good. The terminal ileum, ileocecal valve,appendiceal orifice, and rectum were photographed. Complications: No immediate complications. Estimated Blood Loss & Specimen: Estimated blood loss: none. Specimen collected - Yes and sent to Laboratory Findings: Skin tags were found on perianal exam. A few small and large-mouthed diverticula were found in the sigmoid colon. The colon (entire examined portion) was moderately redundant. The terminal ileum appeared normal. Biopsies were taken with a cold forceps for histology. Biopsies for histology were taken with a cold forceps from the entire colon for evaluation of microscopic colitis. Anal papilla(e) were hypertrophied. Biopsies were taken with a cold forceps for histology. The exam was otherwise without abnormality on direct and retroflexion views. Impressions/Post-Op Diagnosis: - Perianal skin tags found on perianal exam. - Diverticulosis in the sigmoid colon. - Redundant colon. - The examined portion of the ileum was normal. Biopsied. - Anal papilla(e) were hypertrophied. Biopsied. - The examination was otherwise normal on direct and retroflexionviews. - Biopsies were taken with a cold forceps from the entire colon for evaluation of microscopic colitis. Recommendation: - Patient has a contact number available for emergencies. The signsand symptoms of potential delayed complications were discussed with the patient. Return to normal activities tomorrow. Written discharge instructions were provided to the patient. - Resume previous diet. - Continue present medications. - Await pathology results. - Repeat colonoscopy is recommended. The colonoscopy date will be determined after pathology results from today's exam become available for review. Moderate Sedation: Moderate (conscious) sedation was administered by the endoscopy nurse and supervised by the endoscopist. The following parameters were monitored: oxygen saturation, heart rate, respiratory rate, blood pressure, adequacy of pulmonary ventilation and reponse to care. Please refer to the patient's medical record flowsheets and nursing notes for moderate sedation details. Total physician intraservice time was 37 minutes. Abdelrahman Emmanuel MD 07/04/2021 10:41:09 AM This report has been signed electronically. Note Initiated On: 07/04/2021 8:59 AM Procedure Code(s): --- Professional --- 04585, Colonoscopy, flexible; with biopsy, single or multiple Diagnosis Code(s): --- Professional --- K62.89, Other specified diseases of anus and rectum K64.4, Residual hemorrhoidal skin tags K92.1, Melena (includes Hematochezia) R19.7, Diarrhea, unspecified K57.30, Diverticulosis of large intestine without perforation or abscess withoutbleeding Q43.8, Other specified congenitalmalformations of intestine CPT copyright 2020 [employer]. All rights reserved. The codes documented in this report are preliminary and upon padder cushion reviewmay be revised to meet current compliance requirements. Scope In: 9:57:22 AM Scope Withdrawal Time 0 hours 17 minutes 47 seconds Scope Out: 10:31:13 AM us Abdelrahman Emmanuel MD PROCEDURE ORD Final Res ult * ANTI HCV (11/25/2019 9:52 AM BOTTLE HOUSE CLEANERS SUPERVISOR) HEPATITIS C ANTIBODY Non-React israel Non-React israel 11/25/2019 5:01 PM BOTTLE HOUSE CLEANERS SUPERVISOR [facility] Comment:Antibodies to HCV no t detected; does not exclude the possibility of exposure to HCV. Blood BLOOD SPECIMEN / Unknown Venipuncture / Unknown 11/25/2019 9:52 AM BOTTLE HOUSE CLEANERS SUPERVISOR 11/25/2019 9:52 AM BOTTLE HOUSE CLEANERS SUPERVISOR us Rosa Isela Siddiqui MD SEND OUTS Final Result [facility] [address] [place] [address], from Last 3 Months or Most Recently Relevant to Health Maintenance Insurance [place] PB ONLY MEDICARE PART B HB ONLY [place] BL[place] HB ONLY MEDICARE PART A HB ONLY WORKERS COMP Advance Directives Documents on File Type Date Recorded Patient Spray Technician Expl anation Healthcare Directive 04/29/2012 8:40 AM AC P Care Teams Votator Machine Operator Relationship Specialty Start Date End Date Myla Nassar [facility] [place] [address] PCP - General Family Practice 06/12/23 Mata Walker MD [address] [place] [address] Surgery - Orthopedic 08/14/22 Rosa Isela Velazquez, FULL STACK SOFTWARE DEVELOPER [address] [facility] [place] [address] Nurse Practitioner Hematology and Oncology 08/10/23 Tg Landin MD [address] [facility] [place] [address] Medical Oncologist Hematology and Oncology 08/10/23
--- NOTE | 2025-08-27 19:01 | ED.GENADULT ---
HPI - General Adult General Chief complaint: Extremity Pain/Injury, Lower Stated complaint: Left Leg Pain Time Seen by Provider: 08/27/25 18:56 Source: patient Mode of arrival: ambulatory Limitations: no limitations History of Present Illness HPI narrative: 75-year-old female who comes today with left leg pain. Last week patient was cleaning her house and squatting down, she noted some back pain when she stood up but continued working, again was cleaning some things on the floor while squatting and bending and when she stood up had pain in the left low back and left buttock radiating to the left upper thigh and down the front of the leg as well as into the groin. She was seen earlier this week with primary care and received oxycodone as well as a Medrol Dosepak. She has only taken four of the oxycodone since that visit on August 24, also has taken some Flexeril. She chronically takes gabapentin 600 mg in the morning and 900 mg at night. She has not noticed any improvement of her pain and feels like she might be getting worse and so came to the emergency department. She does not have any weakness, numbness or tingling of the leg, she denies bowel or bladder incontinence. Related Data Home Medications ?Medication ?Instructions ?Recorded ?Confirmed allopurinol 100 mg tablet 100 - 200 mg PO Q12H 11/25/23 12/09/24 ampicillin 500 mg capsule 2,000 mg PO ONCE 11/25/23 12/09/24 aspirin 81 mg capsule 81 mg PO DAILY 11/25/23 12/09/24 Held on 11/29/23. Instructions: Resume on 01/03/24. hold ASA until f/u with Hematology celecoxib 100 mg capsule 100 mg PO BID PRN pain 11/25/23 12/09/24 cyclobenzaprine 10 mg tablet 10 mg PO HS PRN 11/25/23 12/09/24 dulaglutide 1.5 mg/0.5 mL 4.5 mg subcut Q7D 11/25/23 02/03/25 subcutaneous pen injector (Trulicity) famotidine 20 mg tablet 20 mg PO BID 11/25/23 12/09/24 ferrous sulfate 325 mg (65 mg 325 mg PO DAILY 11/25/23 12/09/24 iron) tablet (Feosol) fluticasone propionate 50 2 spray intranasal DAILY 11/25/23 12/09/24 mcg/actuation nasal spray,suspension gabapentin 300 mg capsule 600 - 900 mg PO Q12H 11/25/23 12/09/24 hydrochlorothiazide 25 mg tablet 25 mg PO DAILY 11/25/23 12/09/24 loratadine 10 mg tablet (Claritin) 10 mg PO DAILY 11/25/23 12/09/24 losartan 50 mg tablet 50 mg PO DAILY 11/25/23 12/09/24 meclizine 25 mg tablet 25 mg PO TID PRN 11/25/23 12/09/24 metoprolol tartrate 25 mg tablet 12.5 mg PO Q12H 11/25/23 12/09/24 montelukast 10 mg tablet 10 mg PO HS 11/25/23 12/09/24 acetaminophen 500 mg tablet 1,000 mg PO HS 11/26/23 12/09/24 magnesium 250 mg tablet 250 mg PO DAILY 11/26/23 12/09/24 mecobalamin (vitamin B12) 1,000 1,000 mcg PO DAILY 11/26/23 12/09/24 mcg chewable tablet rosuvastatin 20 mg tablet 20 mg PO QPM 05/26/24 12/09/24 Allergies Allergy/AdvReac Type Severity Reaction Status Date / Time acetaminophen (From Percocet) AdvReac Intermediate nausea and Verified 05/02/25 09:40 headache oxycodone (From Percocet) AdvReac Intermediate nausea and Verified 05/02/25 09:40 headache tramadol AdvReac Nausea Verified 05/02/25 09:40 [facility] Medical History Closed left femoral fracture ?S72.92XA - Unspecified fracture of left femur, initial encounter for closed fracture (ICD-10) Iron deficiency anemia ?D50.9 - Iron deficiency anemia, unspecified (ICD-10) Shortness of breath ?R06.02 - Shortness of breath (ICD-10) Gastrointestinal bleeding ?K92.2 - Gastrointestinal hemorrhage, unspecified (ICD-10) Gout ?M10.9 - Gout, unspecified (ICD-10) Chronic pain of left knee ?M25.562 - Pain in left knee (ICD-10) ?G89.29 - Other chronic pain (ICD-10) Lumbar radiculopathy ?M54.16 - Radiculopathy, lumbar region (ICD-10) CKD stage 3 due to type 1 diabetes mellitus ?E10.22 - Type 1 diabetes mellitus with diabetic chronic kidney disease (ICD-10) ?N18.30 - Chronic kidney disease, stage 3 unspecified (ICD-10) Spondylolisthesis, lumbar region ?M43.16 - Spondylolisthesis, lumbar region (ICD-10) Obesity ?E66.9 - Obesity, unspecified (ICD-10) Hyperlipidemia ?E78.5 - Hyperlipidemia, unspecified (ICD-10) Type 2 diabetes mellitus ?E11.9 - Type 2 diabetes mellitus without complications (ICD-10) Hypertension ?I10 - Essential (primary) hypertension (ICD-10) Surgical History History of total knee arthroplasty ?Z96.659 - Presence of unspecified artificial knee joint (ICD-10) Hx of cholecystectomy ?Z90.49 - Acquired absence of other specified parts of digestive tract (ICD-10) Social History What is your current living situation?: I presently have a place to live Problems where you live: no known problems Problems where you live details: none In the past 12 months, utilities in danger of being shut off: no In past 12 months, lack of transportation kept you from medical appts, meetings, work, or getting things needed for daily living: no In the past 12 mos, have been you worried that your food would run out before you had money to buy more?: never true In the past 12 mos, the food you bought just didn't last and you didn't have money to buy more?: never true Highest level of school completed/degree received: some college, no degree Smoking Status: Never smoker Do you use any of these nicotine containing products: None How often do you have a drink containing alcohol: never AUDIT-C Alcohol total score: 0 Non-prescribed substance use: denies use Caffeine: Yes (1 cup a day) How often does anyone, including family, friends and others, physically hurt you: never How often does anyone, including family, friends and others, insult or talk down to you: never How often does anyone, including family, friends and others, threaten you with harm: never How often does anyone, including family, friends and others, scream or curse at you: never service: No Exam Narrative: Exam Narrative: General: Well-developed and well-nourished, no acute distress Head: Atraumatic and normocephalic Eyes: Pupils are equal reactive, extraocular motions intact, conjunctiva clear ENT: External nose and ears are normal, posterior pharynx without erythema or exudate Neck: No midline cervical tenderness, full spontaneous range of motion the neck, trachea midline, no adenopathy Heart: Regular rate and rhythm no murmurs or thrills Lungs: Clear to auscultation bilaterally without wheezes or crackles Abdomen: Soft, nontender, nondistended with active bowel sounds Musculoskeletal: No tenderness of the left lower leg, knee, hip, or buttock. She does have some tenderness in the SI area. Pain with straight leg raise in the low back. Sensation and strength of the left lower extremity intact. Neurologic: Awake, alert, and oriented x3, no gross focal neurologic deficits, cranial nerves intact as tested Psych: Mood and affect are appropriate Skin: No rashes Const: Vital Signs, click to edit/add: Vital Signs - 24 hr 08/27/25 18:56 08/27/25 19:07 08/27/25 19:45 Temperature 98.1 F Pulse Rate [Pulse Oximeter] 70 Respiratory Rate 16 Blood Pressure [Ri ght Upper Arm] 193/80 H 168/79 H Pulse Oximetry 94 84 L Oxygen Delivery Me thod Room Air Room Air Oxygen Flow Rate 08/27/25 19:47 Temperature Pulse Rate [Pulse Oximeter] Respiratory Rate Blood Pressure [Ri ght Upper Arm] Pulse Oximetry 94 Oxygen Delivery Me thod Nasal Cannula Oxygen Flow Rate 2 Course Course ED Course: Reviewed most recent sports medicine note from August 24 when patient was seen for left buttock and back pain rating left hip and groin which was making ambulation difficult, this it started couple of days prior. At that time strength was noted to be intact, x-rays were ordered along with oxycodone, Medrol Dosepak. Review of chart shows patient has a history of diabetes, chronic kidney disease, hypertension, obesity. Patient seen and examined, presents today with left low back pain radiating in the anterior left leg and left lower leg as well as groin, no numbness or tingling, no weakness, no bowel or bladder incontinence, no indication for emergent MRI at this time. Given worsening pain in spite of treatment, CT scan is ordered to evaluate for occult compression fracture or other bony abnormality. Decadron, Dilaudid, and Ativan ordered in the emergency department. Discussed with patient that goal is to get her pain under control and get her home today and she is agreeable to this. Disposition pending response to treatment and imaging results. Reevaluation(s) Time of Reevaluation #1: 20:51 Reevaluation #1: CT lumbar spine Impression: 1. No acute fracture. 2. Advanced multilevel lumbar spondylosis, including at least moderately severe spinal canal stenosis at L3-4 and L4-5. Time of Reevaluation #2: 20:51 Reevaluation #2: Reviewed radiology interpretation CT of the lumbar spine, multilevel disc bulging and endplate ridging, moderate to severe foraminal stenosis of the left L3-4. This is consistent with the area patient's pain. Encourage patient to use oxycodone for pain, will add Ativan for adjunct management, she also can increase her gabapentin to 3 times a day, close follow-up with primary care for further evaluation and treatment. Patient has no weakness or decreased sensation to indicate need for emergent MRI or neuro surgical evaluation or treatment. Time of Reevaluation #3: 21:16 Reevaluation #3: Patient up the bathroom, required heavy assist of 1 and says she does not think she will be able to take care of herself at home. Care discussed with Dr. Arzola for observation for lumbar back pain/lumbar radiculopathy, pain management, failed outpatient treatment. Vital Signs Vital signs: Initial Vital Signs Temperature 98.1 F 08/27/25 18:56 Temperature Source Temporal Artery Scan 08/27/25 18:56 Pulse Rate 70 08/27/25 18:56 Respiratory Rate 16 08/27/25 18:56 Blood Pressure 193/80 H 08/27/25 18:56 Blood Pressure Mean 117 H 08/27/25 18:56 Blood Pressure Position Supine 08/27/25 18:56 Pulse Oximetry 94 08/27/25 18:56 Oxygen Delivery Method Room Air 08/27/25 18:56 Vital Signs Temperature 98.1 F 08/27/25 18:56 Pulse Rate 70 08/27/25 18:56 Respiratory Rate 16 08/27/25 18:56 Blood Pressure 193/80 H 08/27/25 18:56 Pulse Oximetry 94 08/27/25 18:56 Oxygen Delivery Method Room Air 08/27/25 18:56 Temperature 98.1 F 08/27/25 18:56 Pulse Rate 70 08/27/25 18:56 Respiratory Rate 16 08/27/25 18:56 Blood Pressure 168/79 H 08/27/25 19:07 Pulse Oximetry 94 08/27/25 19:47 Oxygen Delivery Method Nasal Cannula 08/27/25 19:47 Oxygen Flow Rate 2 08/27/25 19:47 Medications Administered Medications: Discontinued Medications Generic Name Dose Route Start Last Admin Trade Name Everardoq PRN Reason Stop Dose Admin Dexamethasone 10 mg 08/27/25 19:23 08/27/25 19:37 Dexamethasone 4 Mg/Ml Vial IVP 08/27/25 19:24 10 mg ONCE ONE Administration Hydromorphone HCl 0.5 mg 08/27/25 19:23 08/27/25 19:33 Hydromorphone 0.5 Mg/0.5 Ml Inj IVP 08/27/25 19:24 0.5 mg ONCE ONE Administration Lorazepam 0.5 mg 08/27/25 19:23 08/27/25 19:33 Lorazepam 0.5 Mg Tablet PO 08/27/25 19:24 0.5 mg ONCE ONE Administration Discharge Plan Discharge Clinical Impression: Acute lumbar radiculopathy Patient Disposition: Admitted As Observation Condition: Stable Activity Level: Activity as Tolerated Discharge Diet: Regular
[2025-08-27 19:07] VITALS: BP 168/79
--- NOTE | 2025-08-27 19:23 | CRLHL7_ITS ---
For Patients: As a result of the Century Cures Act, medical imaging exams and procedure reports are released immediately into your electronic medical record. You may view this report before your referring provider. If you have questions, please contact your health care provider. Indication: Low back pain. Technique: Noncontrast CT images of the lumbar spine. Comparison: None. Findings: The lumbar lordosis is preserved. Mild leftward lumbar curvature. Vertebral body heights are maintained. No acute fracture. Grade 1 anterolisthesis of L4 on L5. Advanced facet arthropathy at L4-5 and L5-S1. Multilevel posterior disc bulging, endplate spondylitic ridging, and facet arthropathy contributing to at least moderately severe spinal canal stenosis at L3-4 and L4-5. Moderately severe neural foraminal stenosis on the left at L3-4 as well as moderate neural foraminal stenosis bilaterally at L4-5. Left adrenal nodule measuring 1.4 cm is indeterminate. Impression: 1. No acute fracture. 2. Advanced multilevel lumbar spondylosis, including at least moderately severe spinal canal stenosis at L3-4 and L4-5. Please note that all CT scans at this facility use dose modulation, iterative reconstruction, and/or weight-based dosing when appropriate to reduce radiation dose to as low as reasonably achievable. Dictated by Marin Clay MD @ 08/27/2025 8:15:58 PM (Electronically Signed)
[2025-08-27 19:45] VITALS: O2SAT 84
[2025-08-27 19:47] VITALS: O2SAT 94
--- NOTE | 2025-08-27 22:47 | PM.IMHP1 ---
Assessment and Plan Assessment and plan (1) Acute lumbar radiculopathy: Problem comment: scheduled tylenol. limited trial of toradol (15mg q 6 x 3 doses), oral diluadid, flexeril, gabapentin. -lumbar MR ordered -day team can see if Maria Antonia can do an DAKOTAH during this admission (prior auth is typically waived for inpatients - not sure how this works with medicare) Status: Acute (2) Spondylolisthesis, lumbar region: Status: Acute (3) Pain crisis: Problem comment: as above Status: Acute (4) CKD (chronic kidney disease) stage 3, GFR 30-59 ml/min: Problem comment: -creat 1.16 on 08/14. Status: Acute (5) Hypertension: Problem comment: -continue losartan, metoprolol Status: Acute (6) Type 2 diabetes mellitus: Problem comment: -most recent A1c 7.4 in June 2025. -ssi, accjoanns Status: Acute (7) Obesity: Status: Acute Hospitalist- H&P: HPI History of Present Illness Date Seen: 08/27/25 Chief complaint: Left Leg Pain Narrative: ADMISSION HISTORY AND PHYSICAL - HOSPITALIST Chief Complaint: Pain crisis, worsening left buttock and left leg pain. HPI: Patient is a 75-year-old white female with a history of chronic kidney disease, iron deficiency anemia, type 2 diabetes, obesity who has a known history of degenerative disc disease of the lumbar spine. She follows with Dr. Salgado at [facility]. She noted 1 week prior to admission in acute muscle spasm while cleaning her house. Unfortunately this did not respond to her typical interventions which include ice, heat, Celebrex, gabapentin. She attempted her stretches. Pain only seem to be increasing. She made an appointment to see Dr. Salgado 3 days prior to admission. He recommended a Medrol Dosepak, limited oxycodone, and continued her previous medication. Plain film imaging was reassuring. After the appointment her pain continued to escalate. Her oral oxycodone was not touching her pain. She presented to the ER in a pain crisis this evening. She is describing a burning shooting pain that starts in her left low back and traverses her left buttock and down the anterior part of her left leg all the way down to mid calf. She states there is nothing that makes it better. Walking, bending or twisting seem to exacerbate this pain. Bowel and Bladder function are reportedly normal. no hx of cancer. ER COURSE: In the emergency room they attempted a benzodiazepine, IV Dilaudid, and 1 dose of IV dexamethasone. Will this did decrease her pain to about a 7/10 she was unable to walk. She lives alone. ER asked us for admission for pain control. CODE STATUS: FULL CODE PCP: Myla Nassar DO EMERGENCY CONTACT PLAN: Nando Riley Rel To Pat Son Cell I've updated the PFSH, medications and allergies in the Expanse tabs. INVESTIGATIONS: LABS/MICRO/ECG/IMAGING The lab drawn tonight however, epic does reveal recent labs as of 2 weeks ago. CMP reveals normal electrolytes. Creatinine 1.16, BUN 36. GFR 50. She has known chronic anemia. Hemoglobin 11.3. Platelet count 132. Recent A1c in June of 2025 7.31 January 2023 Lumbar MR IMPRESSION: 1. Grade 1 anterolisthesis of L4 on L5. Otherwise normal alignment. No fractures. 2. Lumbar spondylosis. 3. At L2-3, moderate narrowing of spinal canal. Moderate right and mild left neural foraminal narrowing. 4. At L3-4, moderate to severe narrowing of the spinal canal and left neural foramen. Potential impingement of the exiting left L3 nerve root 5. At L4-5, moderate narrowing of the spinal canal. Bilateral subarticular recess narrowing with potential impingement of the traversing L5 nerve roots. Moderate narrowing of the left neuroforamen. 6. At L5-S1, moderate right and mild left neural foraminal narrowing. Last saw Dr. Salgado [facility] on 08/24 -Assessment & Plan Leg, hip, and low back pain - Symptoms suggest nerve pain, possibly due to disc inflammation or muscle strain - New spinal x-ray shows good alignment and vertebrae, with mild arthritis in the disks - Anti-inflammatory medications and pain relievers recommended to alleviate discomfort - Medrol Dosepak 6-day taper pack prescribed; short-term use should not significantly affect current bone treatments with Evenity and Reclast -she was given #12 Of oxycodone, the Medrol Dosepak and continued on 600 mg of gabapentin q.a.m. and 900 mg q.p.m. plus Flexeril p.r.n. REVIEW OF SYSTEMS: 12-point ROS completed with patient and negative unless otherwise stated in HPI or below. PHYSICAL EXAM: CONSTITUTIONAL: Conversive, good historian. A/O. Knows setting and context. GENERAL: Well-developed and above ideal body weight, in no respiratory distress. VITAL SIGNS: see record. HEENT: Sclerae are anicteric. No petechiae. CARDIAC: rhythm is regular. There is no S3 or rub. No harsh murmurs. Extremities show trace edema with symmetrical pulses. PULM: good air entry with no wheeze. MSK: patient was not asked to to walk. she has a normal straight leg raise and normal strength (albeit painful on left) to both extremities. senstation intact. NEURO: Speech is fluent. A brief neurologic exam is negative. SKIN: No rashes, petechiae, concerning changes PSYCHIATRIC: Euthymic. ADMIT TO MEDSURG: FLOOR CARE DVT: Lovenox GI: PO intake Time spent: Today I spent 75 minutes seeing the patient, discussing the patient with ER staff, reviewing Expanse and EPIC notes/diagnostics, discussing the care plan with our care time that includes social work, PT/OT, pharmacy, RT, nursing home and documenting my impressions and plan in the medical record. Medical Decision Making Medical Decision Making Has patient completed a Health Care Directive: Yes [facility] Medical History (Updated 08/28/25 @ 00:18 by Abby Arzola MD) CKD (chronic kidney disease) stage 3, GFR 30-59 ml/min ?N18.30 - Chronic kidney disease, stage 3 unspecified (ICD-10) Type 2 diabetes mellitus ?E11.9 - Type 2 diabetes mellitus without complications (ICD-10) Hypertension ?I10 - Essential (primary) hypertension (ICD-10) Closed left femoral fracture ?S72.92XA - Unspecified fracture of left femur, initial encounter for closed fracture (ICD-10) Iron deficiency anemia ?D50.9 - Iron deficiency anemia, unspecified (ICD-10) Shortness of breath ?R06.02 - Shortness of breath (ICD-10) Gastrointestinal bleeding ?K92.2 - Gastrointestinal hemorrhage, unspecified (ICD-10) Gout ?M10.9 - Gout, unspecified (ICD-10) Chronic pain of left knee ?M25.562 - Pain in left knee (ICD-10) ?G89.29 - Other chronic pain (ICD-10) Lumbar radiculopathy ?M54.16 - Radiculopathy, lumbar region (ICD-10) Spondylolisthesis, lumbar region ?M43.16 - Spondylolisthesis, lumbar region (ICD-10) Obesity ?E66.9 - Obesity, unspecified (ICD-10) Hyperlipidemia ?E78.5 - Hyperlipidemia, unspecified (ICD-10) Surgical History History of total knee arthroplasty ?Z96.659 - Presence of unspecified artificial knee joint (ICD-10) Hx of cholecystectomy ?Z90.49 - Acquired absence of other specified parts of digestive tract (ICD-10) Social History What is your current living situation?: I presently have a place to live Problems where you live: no known problems Problems where you live details: none In the past 12 months, utilities in danger of being shut off: no In past 12 months, lack of transportation kept you from medical appts, meetings, work, or getting things needed for daily living: no In the past 12 mos, have been you worried that your food would run out before you had money to buy more?: never true In the past 12 mos, the food you bought just didn't last and you didn't have money to buy more?: never true Highest level of school completed/degree received: some college, no degree Smoking Status: Never smoker Do you use any of these nicotine containing products: None Second hand tobacco smoke exposure: No How often do you have a drink containing alcohol: never AUDIT-C Alcohol total score: 0 Non-prescribed substance use: denies use Caffeine: Yes (1 cup a day) How often does anyone, including family, friends and others, physically hurt you: never How often does anyone, including family, friends and others, insult or talk down to you: never How often does anyone, including family, friends and others, threaten you with harm: never How often does anyone, including family, friends and others, scream or curse at you: never service: No Meds Home Medications and Allergies Home Medications ?Medication ?Instructions ?Recorded ?Confirmed ?Type allopurinol 100 mg tablet 100 - 200 mg PO Q12H 11/25/23 12/09/24 History ampicillin 500 mg capsule 2,000 mg PO ONCE 11/25/23 12/09/24 History aspirin 81 mg capsule 81 mg PO DAILY 11/25/23 12/09/24 History Held on 11/29/23. Instructions: Resume on 01/03/24. hold ASA until f/u with Hematology celecoxib 100 mg capsule 100 mg PO BID PRN pain 11/25/23 12/09/24 History cyclobenzaprine 10 mg tablet 10 mg PO HS PRN 11/25/23 12/09/24 History dulaglutide 1.5 mg/0.5 mL 4.5 mg subcut Q7D 11/25/23 02/03/25 History subcutaneous pen injector (Trulicity) famotidine 20 mg tablet 20 mg PO BID 11/25/23 12/09/24 History ferrous sulfate 325 mg (65 mg 325 mg PO DAILY 11/25/23 12/09/24 History iron) tablet (Feosol) fluticasone propionate 50 2 spray intranasal DAILY 11/25/23 12/09/24 History mcg/actuation nasal spray,suspension gabapentin 300 mg capsule 600 - 900 mg PO Q12H 11/25/23 12/09/24 History hydrochlorothiazide 25 mg tablet 25 mg PO DAILY 11/25/23 12/09/24 History loratadine 10 mg tablet (Claritin) 10 mg PO DAILY 11/25/23 12/09/24 History losartan 50 mg tablet 50 mg PO DAILY 11/25/23 12/09/24 History meclizine 25 mg tablet 25 mg PO TID PRN 11/25/23 12/09/24 History metoprolol tartrate 25 mg tablet 12.5 mg PO Q12H 11/25/23 12/09/24 History montelukast 10 mg tablet 10 mg PO HS 11/25/23 12/09/24 History acetaminophen 500 mg tablet 1,000 mg PO HS 11/26/23 12/09/24 History magnesium 250 mg tablet 250 mg PO DAILY 11/26/23 12/09/24 History mecobalamin (vitamin B12) 1,000 1,000 mcg PO DAILY 11/26/23 12/09/24 History mcg chewable tablet rosuvastatin 20 mg tablet 20 mg PO QPM 05/26/24 12/09/24 History Allergies Allergy/AdvReac Type Severity Reaction Status Date / Time acetaminophen (From Percocet) AdvReac Intermediate nausea and Verified 05/02/25 09:40 headache oxycodone (From Percocet) AdvReac Intermediate nausea and Verified 05/02/25 09:40 headache tramadol AdvReac Nausea Verified 05/02/25 09:40 Exam Const: Vital Signs, click to edit/add: Vital Signs - 24 hr 08/27/25 18:56 08/27/25 19:07 08/27/25 19:45 Temperature 98.1 F Pulse Rate [Pulse Oximeter] 70 Respiratory Rate 16 Blood Pressure [Ri ght Upper Arm] 193/80 H 168/79 H Pulse Oximetry 94 84 L Oxygen Delivery Me thod Room Air Room Air Oxygen Flow Rate 08/27/25 19:47 Temperature Pulse Rate [Pulse Oximeter] Respiratory Rate Blood Pressure [Ri ght Upper Arm] Pulse Oximetry 94 Oxygen Delivery Me thod Nasal Cannula Oxygen Flow Rate 2
[2025-08-27 22:48] VITALS: PULSE 80; RESP 16; TEMP 36.7; O2SAT 91; BMI 41.0
[2025-08-27 22:58] VITALS: BP 188/81; PULSE 80; RESP 16; TEMP 36.7; O2SAT 91
[2025-08-27] MEDS: PANTOPRAZOLE SODIUM 40 MG INJ IVP (23:41)
[2025-08-27] MEDS: FAMOTIDINE 20 MG TABLET PO (23:52)
[2025-08-27] MEDS: METOPROLOL TARTRATE 25 MG TABLET 12.5 MG PO (23:52)
[2025-08-27] MEDS: GABAPENTIN 300 MG CAPSULE 600 MG PO (23:55)
[2025-08-27] MEDS: ACETAMINOPHEN 650 MG TABLET ER 1300 MG PO (23:56)
[2025-08-28] MEDS: LOSARTAN POTASSIUM 50 MG TABLET PO (00:23)
[2025-08-28 03:29] VITALS: BP 138/76; PULSE 71; RESP 18; TEMP 36.7; O2SAT 93
[2025-08-28 06:17] LABS: Hematocrit* 36.6 % (33.0-51.0); Hemoglobin* 12.6 gm/dL (12.0-16.0); Mean Corpuscular HGB Conc 34 gm/dL (32-36); Mean Corpuscular Hemoglobin 32 pg (26-34); Mean Corpuscular Volume 94 fL (80-100); Red Blood Count* 3.89 m/uL (4.00-5.20); White Blood Count* 6.30 K/uL (4.50-11.00)
[2025-08-28 06:19] LABS: Slide Review Reflex No
[2025-08-28 06:44] LABS: Chloride* 96 mmol/L (96-114)
[2025-08-28 06:45] LABS: Albumin* 4.6 g/dL (3.3-5.0); Potassium* 4.4 mmol/L (3.6-5.1); Sodium* 134 mmol/L (135-149)
[2025-08-28 06:48] LABS: Anion Gap 15 mEq/L (7-15); Blood Urea Nitrogen* 42 mg/dL (7-30); Calcium* 10.0 mg/dL (8.4-10.6); Carbon Dioxide* 23 mmol/L (20-32); Creatinine* 1.1 mg/dL (0.5-1.5); Est. Creatinine Clearance* 33.35; Estimated Glomerular Filt Rate 52 ml/min; Glucose* 279 mg/dL (60-115)
[2025-08-28] MEDS: ACETAMINOPHEN 650 MG TABLET ER 1300 MG PO ×2 (07:29→14:43)
--- NOTE | 2025-08-28 07:55 | PC.NURSE ---
Shift note (5422-2070): Patient pleasant, alert and oriented. Ambulates with own walker, gait belt and assist of one. Given PRN Dilaudid for?pain in left hip/leg when up ambulating; otherwise rated pain 1/10 at rest.?
--- NOTE | 2025-08-28 08:00 | CRLHL7_ITS ---
For Patients: As a result of the Century Cures Act, medical imaging exams and procedure reports are released immediately into your electronic medical record. You may view this report before your referring provider. If you have questions, please contact your health care provider. Indication: Acute radiculopathy, left leg Technique: Multiplanar, multisequence MR images of the lumbar spine were obtained without the administration of IV contrast. Comparison: CT lumbar spine without contrast August 27, 2025 Findings: The lumbar vertebral body heights are grossly maintained with minimal endplate Schmorl`s defects. There is anterolisthesis of L4 on L5. There is moderate multilevel degenerative disc disease with disc desiccation, height loss and disc protrusions seen throughout. The vertebral bodies have grossly preserved marrow signal intensity. The conus medullaris terminates at the T12-L1 level and is normal in signal and contour. The paraspinous soft tissues are grossly unremarkable. L1-L2: There is a diffuse disc bulge with mild facet arthrosis. There is mild bilateral neural foraminal narrowing. L2-L3: There is a diffuse disc bulge with a left foraminal protrusion. There is mild facet arthrosis and ligamentum flavum hypertrophy. There is korg-yc-bxhfcgrr spinal canal narrowing with moderate to severe left and moderate right neural foraminal narrowing. L3-L4: There is a diffuse disc bulge with severe facet arthrosis. There is severe focal spinal canal narrowing and effacement of the lateral recesses with severe left and moderate to severe right neural foraminal narrowing. L4-L5: There is moderate diffuse disc bulge with severe facet arthrosis and severe focal spinal canal narrowing secondary to anterolisthesis. There is moderate to severe uhbw-bacawzq-vwom-right neural foraminal narrowing. L5-S1: There is a diffuse disc bulge with a central protrusion with moderate to severe right facet arthrosis. There is mild left and ebtz-zi-edeavpfg right neural foraminal narrowing. Impression: Moderate to severe degenerative changes of the lumbar spine worst at the L3-L4 and L4-L5 levels as described above. Dictated by Cullen Moser MD @ 08/28/2025 9:11:12 AM (Electronically Signed)
[2025-08-28] MEDS: GABAPENTIN 300 MG CAPSULE 600 MG PO (08:57)
[2025-08-28] MEDS: FAMOTIDINE 20 MG TABLET PO ×2 (08:57→21:22)
[2025-08-28] MEDS: METOPROLOL TARTRATE 25 MG TABLET 12.5 MG PO ×2 (08:57→21:23)
[2025-08-28] MEDS: ASPIRIN 81 MG TABLET EC PO (08:57)
[2025-08-28] MEDS: SODIUM CHLORIDE 0.9 % (FLUSH) 10 ML SYRINGE 5 ML IVF ×2 (08:58→21:25)
[2025-08-28] MEDS: INSULIN ASPART 100 UNIT/ML SUBCUT ×3 (08:58→17:17)
[2025-08-28 09:06] VITALS: BP 177/86; PULSE 67; RESP 14; TEMP 36.6; O2SAT 95
--- NOTE | 2025-08-28 10:03 | PM.IMPN1 ---
Assessment and Plan Assessment and plan (1) Acute lumbar radiculopathy: Problem comment: Acute on chronic recurrent Scheduled tylenol. Lidocaine patch. Ice/heat. Oral diluadid, flexeril, continue home gabapentin. Scheduled stool softener b.i.d. Discontinued toradol with h/o GI bleed after discussion with pharmacy Prednisone 40 mg daily (did not complete Medrol-Dosepak from - can finish taper on discharge) Lumbar MRI showing moderate to severe degenerative changes of the lumbar spine worst at the L3-L4 and L4-L5 levels as described above. Previous MRIs with neuroforaminal stenosis, spondylolisthesis, tunnel narrowing PT/OT Attempting to schedule lumbar epidural injection with Dr. Oracio Em for 08/29/25 Status: Acute (2) Spondylolisthesis, lumbar region: Problem comment: Chronic Status: Chronic (3) Pain crisis: Problem comment: as above Status: Acute (4) CKD (chronic kidney disease) stage 3, GFR 30-59 ml/min: Problem comment: Creatinine at baseline 1.1 Status: Acute (5) Hypertension: Problem comment: Continue losartan, metoprolol Status: Acute (6) Type 2 diabetes mellitus: Problem comment: -most recent A1c 7.4 in June 2025. -ssi, accuchecks Status: Acute (7) Obesity: Problem comment: Chronic Status: Acute Plan Pain management, therapies. Likely discharge 08/28 later or 08/29 Total Time Spent Total Time Spent: Today I spent 45 minutes seeing the patient, reviewing Expanse and EPIC notes/diagnostics, discussing the care plan with our care time that includes social work, PT/OT, pharmacy, RT, assisted and documenting my impressions and plan in the medical record. Subjective Date Seen: 08/28/25 Interval history: Patient is seen this morning sitting up in bed eating breakfast. Reports feeling better than on admission. Pain ratings have been 1-3 while at rest, increasing to 7 with activity. Tolerating orals without nausea vomiting. Remains afebrile. Vitally stable. Acute on chronic worsening of back pain. Flares over the years. Had an epidural injection with Dr. Salgado over a year ago which she found helpful in relieving her pain. Exam Narrative: Exam Narrative: PHYSICAL EXAM General: Very pleasant, conversant, NAD HEENT: Normocephalic, atraumatic, sclera white, EOMI, oral mucosa moist Cardiovascular: RRR, S1S2. No pitting edema Pulmonary: CTA bilaterally without rhonchi, rales, expiratory wheezes. No dyspnea on room air Neurological: Alert, answering questions appropriately, cranial nerves intact, no focal findings Extremities: No gross joint deformity or swelling. AROMI. Neurovascularly intact Skin: Warm, dry. Const: Vital Signs, click to edit/add: Vital Signs - 24 hr 08/27/25 18:56 08/27/25 19:07 08/27/25 19:45 Temperature 98.1 F Pulse Rate [Bilate ral Dorsalis Pedis ] Pulse Rate [Left P ulse Oximeter] Pulse Rate [Pulse Oximeter] 70 Respiratory Rate 16 Blood Pressure [Le ft Arm] Blood Pressure [Ri ght Upper Arm] 193/80 H 168/79 H Pulse Oximetry 94 84 L Oxygen Delivery Me thod Room Air Room Air Oxygen Flow Rate 08/27/25 19:47 08/27/25 22:48 08/27/25 22:48 Temperature 98.1 F Pulse Rate [Bilate ral Dorsalis Pedis ] 80 Pulse Rate [Left P ulse Oximeter] Pulse Rate [Pulse Oximeter] Respiratory Rate 16 16 Blood Pressure [Le ft Arm] Blood Pressure [Ri ght Upper Arm] Pulse Oximetry 94 91 91 Oxygen Delivery Me thod Nasal Cannula Room Air Room Air Oxygen Flow Rate 2 08/27/25 22:58 08/28/25 03:29 08/28/25 09:06 Temperature 98.1 F 98.0 F 97.9 F Pulse Rate [Bilate ral Dorsalis Pedis ] Pulse Rate [Left P ulse Oximeter] 80 71 67 Pulse Rate [Pulse Oximeter] Respiratory Rate 16 18 14 Blood Pressure [Le ft Arm] 188/81 H 138/76 177/86 H Blood Pressure [Ri ght Upper Arm] Pulse Oximetry 91 93 95 Oxygen Delivery Me thod Room Air Room Air Room Air Oxygen Flow Rate 08/28/25 09:06 Temperature Pulse Rate [Bilate ral Dorsalis Pedis ] Pulse Rate [Left P ulse Oximeter] 67 Pulse Rate [Pulse Oximeter] Respiratory Rate 14 Blood Pressure [Le ft Arm] Blood Pressure [Ri ght Upper Arm] Pulse Oximetry Oxygen Delivery Me thod Oxygen Flow Rate Labs Labs: Laboratory Results - last 24 hr 08/28/25 06:04 WBC 6.30 RBC 3.89 L Hgb 12.6 Hct 36.6 MCV 94 MCH 32 MCHC 34 Plt Count 162 Sodium 134 L Potassium 4.4 Chloride 96 Carbon Dioxide 23 Anion Gap 15 BUN 42 H Creatinine 1.1 Estimated Creat Clear 33.35 Estimated GFR 52 Glucose 279 H Calcium 10.0 Phosphorus 5.2 H Albumin 4.6
[2025-08-28] MEDS: LIDOCAINE 5% PATCH 1 PATCH TRANSDERMA (10:21)
[2025-08-28 10:50] VITALS: BP 152/78; PULSE 63; RESP 14; TEMP 36.6; O2SAT 94
--- NOTE | 2025-08-28 11:26 | PM.DS1 ---
DS: Providers Provider Date Seen: 08/29/25 Date of admission: 08/27/25 22:15 Primary care physician: Myla Nassar DO Admitting Clinician: Abby Arzola MD Consults: 08/27/25 22:58 Consult to Occupational Therapy [CONS] Routine Comment: Reason(s) for OT Consult:: Evaluate and Treat Any Restrictions?:: No Restrictions Consult to Physical Therapy [CONS] Routine Comment: Reason(s) for PT Consult:: Evaluate and Treat Any Restrictions?:: No Restrictions Attending Physician on discharge: RIMA [facility]: 08/29/25 DS: Diagnosis Discharge Diagnosis (1) Acute lumbar radiculopathy: Status: Acute Problem details: Acute on chronic recurrent Scheduled tylenol. Lidocaine patch. Ice/heat. Oral diluadid, flexeril, continue home gabapentin. Scheduled stool softener b.i.d. Discontinued toradol with h/o GI bleed after discussion with pharmacy Prednisone 40 mg daily (did not complete Medrol-Dosepak from - can finish taper on discharge) Lumbar MRI showing moderate to severe degenerative changes of the lumbar spine worst at the L3-L4 and L4-L5 levels as described above. Previous MRIs with neuroforaminal stenosis, spondylolisthesis, tunnel narrowing PT/OT - could consider outpatient PT Scheduled for outpatient epidural on 08/29/[address] Em. (2) Spondylolisthesis, lumbar region: Status: Chronic Problem details: Chronic (3) Pain crisis: Status: Acute Problem details: as above (4) CKD (chronic kidney disease) stage 3, GFR 30-59 ml/min: Status: Acute Problem details: Creatinine at baseline 1.1 (5) Hypertension: Status: Acute Problem details: Continue losartan, metoprolol (6) Type 2 diabetes mellitus: Status: Acute Problem details: -most recent A1c 7.4 in June 2025. -ssi, accuchecks Blood sugars noted to increase during course of prednisone which was started prior to admission. Close monitoring on discharge. (7) Obesity: Status: Acute Problem details: Chronic DS: Summary Hospital Course Hospital Course: Course of care and details as noted above. Admitted for observation and pain management. As oxycodone was not helping at home, switched to oral Dilaudid. Continued on scheduled Tylenol, lidocaine patch, p.r.n. cyclobenzaprine, ice/heat. Physical therapy assessed. Discussed with Dr. Em, able to schedule for outpatient epidural injection on 08/29 at the surgery center. Continue with outpatient pain management upon discharge. Recommend outpatient physical therapy. Will have friends/family assist at home in the short term. Will have follow-up with Dr. Em next week. Status at Discharge Functional status at discharge: uses cane/walker Overall status at discharge: patient is progressing back to baseline Time Spent with Patient Time attestation: Total time spent providing and/or coordinating discharge services: Time spent: Greater than 30 minutes Exam Narrative: Exam Narrative: PHYSICAL EXAM General: Pleasant, conversant, NAD Cardiovascular: RRR Pulmonary: No dyspnea Neurological: Alert, answering questions appropriately Skin: Warm, dry. Const: Vital Signs, click to edit/add: Vital Signs - 24 hr 08/27/25 18:56 08/27/25 19:07 08/27/25 19:45 Temperature 98.1 F Pulse Rate [Bilate ral Dorsalis Pedis ] Pulse Rate [Left P ulse Oximeter] Pulse Rate [Pulse Oximeter] 70 Respiratory Rate 16 Blood Pressure [Le ft Arm] Blood Pressure [Ri ght Upper Arm] 193/80 H 168/79 H Pulse Oximetry 94 84 L Oxygen Delivery Me thod Room Air Room Air Oxygen Flow Rate 08/27/25 19:47 08/27/25 22:48 08/27/25 22:48 Temperature 98.1 F Pulse Rate [Bilate ral Dorsalis Pedis ] 80 Pulse Rate [Left P ulse Oximeter] Pulse Rate [Pulse Oximeter] Respiratory Rate 16 16 Blood Pressure [Le ft Arm] Blood Pressure [Ri ght Upper Arm] Pulse Oximetry 94 91 91 Oxygen Delivery Me thod Nasal Cannula Room Air Room Air Oxygen Flow Rate 2 08/27/25 22:58 08/28/25 03:29 08/28/25 09:06 Temperature 98.1 F 98.0 F 97.9 F Pulse Rate [Bilate ral Dorsalis Pedis ] Pulse Rate [Left P ulse Oximeter] 80 71 67 Pulse Rate [Pulse Oximeter] Respiratory Rate 16 18 14 Blood Pressure [Le ft Arm] 188/81 H 138/76 177/86 H Blood Pressure [Ri ght Upper Arm] Pulse Oximetry 91 93 95 Oxygen Delivery Me thod Room Air Room Air Room Air Oxygen Flow Rate 08/28/25 09:06 08/28/25 10:50 Temperature 98 F Pulse Rate [Bilate ral Dorsalis Pedis ] 63 Pulse Rate [Left P ulse Oximeter] 67 Pulse Rate [Pulse Oximeter] Respiratory Rate 14 14 Blood Pressure [Le ft Arm] 152/78 H Blood Pressure [Ri ght Upper Arm] Pulse Oximetry 94 Oxygen Delivery Me thod Room Air Oxygen Flow Rate DS: Data Data Completed and Pending Completed studies during hospitalization: Procedures Inspection of Upper Intestinal Tract, Via Natural or Artificial Opening Endoscopic (11/26/23) Transfusion of Nonautologous Red Blood Cells into Peripheral Vein, Percutaneous Approach (11/26/23) Labs on day of discharge: Labs from last 24 hours 08/28/25 06:04 WBC 6.30 RBC 3.89 L Hgb 12.6 Hct 36.6 MCV 94 MCH 32 MCHC 34 Plt Count 162 Sodium 134 L Potassium 4.4 Chloride 96 Carbon Dioxide 23 Anion Gap 15 BUN 42 H Creatinine 1.1 Estimated Creat Clear 33.35 Estimated GFR 52 Glucose 279 H Calcium 10.0 Phosphorus 5.2 H Albumin 4.6 Imaging Lumbar spine MRI: Attestation: I have reviewed the pertinent imaging results. Radiologist's impression: Comparison: CT lumbar spine without contrast August 27, 2025 Findings: The lumbar vertebral body heights are grossly maintained with minimal endplate Schmorl`s defects. There is anterolisthesis of L4 on L5. There is moderate multilevel degenerative disc disease with disc desiccation, height loss and disc protrusions seen throughout. The vertebral bodies have grossly preserved marrow signal intensity. The conus medullaris terminates at the T12-L1 level and is normal in signal and contour. The paraspinous soft tissues are grossly unremarkable. L1-L2: There is a diffuse disc bulge with mild facet arthrosis. There is mild bilateral neural foraminal narrowing. L2-L3: There is a diffuse disc bulge with a left foraminal protrusion. There is mild facet arthrosis and ligamentum flavum hypertrophy. There is qlkf-tg-mgshuyir spinal canal narrowing with moderate to severe left and moderate right neural foraminal narrowing. L3-L4: There is a diffuse disc bulge with severe facet arthrosis. There is severe focal spinal canal narrowing and effacement of the lateral recesses with severe left and moderate to severe right neural foraminal narrowing. L4-L5: There is moderate diffuse disc bulge with severe facet arthrosis and severe focal spinal canal narrowing secondary to anterolisthesis. There is moderate to severe gfty-zsezagw-ablf-right neural foraminal narrowing. L5-S1: There is a diffuse disc bulge with a central protrusion with moderate to severe right facet arthrosis. There is mild left and ypuo-ia-dwlijuuu right neural foraminal narrowing. Impression: Moderate to severe degenerative changes of the lumbar spine worst at the L3-L4 and L4-L5 levels as described above. Lumbar spine CT: Attestation: I have reviewed the pertinent imaging results. Radiologist's impression: The lumbar lordosis is preserved. Mild leftward lumbar curvature. Vertebral body heights are maintained. No acute fracture. Grade 1 anterolisthesis of L4 on L5. Advanced facet arthropathy at L4-5 and L5-S1. Multilevel posterior disc bulging, endplate spondylitic ridging, and facet arthropathy contributing to at least moderately severe spinal canal stenosis at L3-4 and L4-5. Moderately severe neural foraminal stenosis on the left at L3-4 as well as moderate neural foraminal stenosis bilaterally at L4-5. Left adrenal nodule measuring 1.4 cm is indeterminate. Impression: 1. No acute fracture. 2. Advanced multilevel lumbar spondylosis, including at least moderately severe spinal canal stenosis at L3-4 and L4-5. Discharge Plan Discharge Disposition: Home, Self-Care Date of Admission: 08/27/25 22:15 Attending Provider on Discharge: Cinthia Wilson Primary Care Provider: Myla Nassar Condition: Improved Anticipated Discharge Date/Time: 08/29/25 08:00 Discharge Medications: New hydromorphone [Dilaudid] 2 mg tablet 2 mg PO Q4H PRN (Reason: pain) Qty: 12 0RF Continued allopurinol 100 mg tablet 100 - 200 mg PO Q12H ampicillin 500 mg capsule 2,000 mg PO ONCE Rx Instructions: take 2000mg once before dental procedures. cyclobenzaprine 10 mg tablet 10 mg PO HS PRN Trulicity 1.5 mg/0.5 mL pen injector 4.5 mg subcut Q7D famotidine 20 mg tablet 20 mg PO BID ferrous sulfate [Feosol] 325 mg (65 mg iron) tablet 325 mg PO DAILY gabapentin 300 mg capsule 600 - 900 mg PO Q12H fluticasone propionate 50 mcg/actuation spray,suspension 2 spray INTRANASAL DAILY PRN hydrochlorothiazide 25 mg tablet 25 mg PO DAILY loratadine [Claritin] 10 mg tablet 10 mg PO DAILY meclizine 25 mg tablet 25 mg PO TID PRN metoprolol tartrate 25 mg tablet 12.5 mg PO Q12H montelukast 10 mg tablet 10 mg PO HS acetaminophen 500 mg tablet 1,000 mg PO HS mecobalamin (vitamin B12) 1,000 mcg tablet,chewable 1,000 mcg PO DAILY magnesium 250 mg tablet 250 mg PO DAILY losartan 100 mg tablet 100 mg PO DAILY rosuvastatin 20 mg tablet 20 mg PO QPM Discharge Orders: Discharge Order (Routine); Ordered 08/29/25 Ordered By: Cinthia Wilson Patient Education: Hydromorphone (By mouth), Lumbar Radiculopathy (ED) Additional Instructions: Take Tylenol 4 times daily (do not exceed 4000mg/24 hours). Use ice/heat to your back and leg frequently throughout the day. Recommend continuing to use Lidocaine patch to your low back daily. Continue your gabapentin. Continue dilaudid and cyclobenzaprine, alternating doses, as needed for pain. Stop the oxycodone as it is not helpful. Complete your Medrol Dosepak. Monitor your blood sugars. You have an epidural injection scheduled for 08/29/25 at 8:40 am Activity Level: Activity as Tolerated Activity Detail: CONSIDER OUTPATIENT PHYSICAL THERAPY Discharge Diet: Regular Follow Up Appointments: John Em MD [Staff Physician, Sports Medicine] Referral Note: post hospital follow up 7-10 days Myla Nassar DO [Primary Care Provider, Family Practice] - 09/05/25 3:00 pm Referral Note: [facility] for hospital follow-up. Forms: Patient Belongings, [facility] Info Instructions
[2025-08-28 15:39] VITALS: BP 140/64; PULSE 70; RESP 12; TEMP 37.1; O2SAT 91
--- NOTE | 2025-08-28 18:19 | PC.NURSE ---
End of Shift: Patient pleasant and cooperative. Patient vitally stable, lungs clear, BS WNL, IV SL and intact. Patient rates back pain at most 7/10 with activity otherwise pain is rated at 2-3/10. Scheduled tylenol given and 2mg of dilauded given once, Lidocaine patch applied to left lower back. Patient is 1 assist/walker. Patient has spent most of the day in bed, but did participate in therapies. Patient tolerating regular diet and urinating well, no BM. Patient's blood sugars were 270, 257, 433.
[2025-08-28 19:35] VITALS: BP 159/75; PULSE 73; RESP 18; TEMP 36.4; O2SAT 74
[2025-08-28] MEDS: LOSARTAN POTASSIUM 50 MG TABLET 100 MG PO (21:21)
[2025-08-28] MEDS: GABAPENTIN 300 MG CAPSULE 900 MG PO (21:22)
[2025-08-28] MEDS: SENNOSIDES/DOCUSATE TABLET 1 TAB PO (21:24)
[2025-08-28] MEDS: INSULIN ASPART 100 UNIT/ML 10 UNIT SUBCUT (21:26)
[2025-08-28 22:34] VITALS: BP 156/72; PULSE 76; RESP 18; TEMP 36.7; O2SAT 94
[2025-08-29] MEDS: INSULIN ASPART 100 UNIT/ML 10 UNIT SUBCUT (00:14)
[2025-08-29] MEDS: ACETAMINOPHEN 650 MG TABLET ER 1300 MG PO ×2 (00:18→07:45)
[2025-08-29 04:05] VITALS: BP 155/75; PULSE 62; RESP 18; TEMP 36.7; O2SAT 94
--- NOTE | 2025-08-29 05:18 | PC.NURSE ---
Shift note ([id number]): Patient pleasant, alert and oriented. Ambulates with own walker, gait belt and assist of one. Given PRN Dilaudid?once this shift for pain in left leg rated 9/10 with activity. Has otherwise denied pain. IV in L hand was removed due to leaking. Per Dr Arzola ok to DC. BS continued to be elevated at HS. Pt asymptomatic. HS BS 465. 10 units Novolog given per MD. Recheck BS one hr later was 362, given 10 more units Novolog per MD orders.?No MD follow-up needed overnight per Dr Arzola if BS decreases after one hour of Novolog administration and pt is asymptomatic. Recheck BS 301. Pt has been asymptomatic through night.?
[2025-08-29 07:00] VITALS: BP 164/69; PULSE 61; RESP 20; TEMP 36.7; O2SAT 96
--- NOTE | 2025-08-29 08:18 | PC.NURSE ---
Patient was discharge and was taken down for her outpatient appointment for an injection.
== END 2025-08-29 08:19 | disposition home or self-care (01) ==
LOC: ED 21:14 → MEDSURG 22:16
PROVIDERS: Admitting Provider Family Medicine; Emergency Provider Family Medicine; PCP Family Medicine; Visit Provider Family Medicine
DX: M54.16 Radiculopathy, lumbar region (principal); M79.605 Pain in left leg; I10 Essential (primary) hypertension; E11.22 Type 2 diabetes mellitus with diabetic chronic kidney disease; E66.9 Obesity, unspecified; M43.11 Spondylolisthesis, occipito-atlanto-axial region
CPT/HCPCS: 36415; 72131; 72148; 80069; 82962; 85027; 96374; 96375; 97110; 97140; 97162; 97165; 97535; 99285; A9270; G0378; J1100; J1171; J1815; J2470; J7512

== ENCOUNTER 2025-08-29 08:22 | Outpatient (CLI) | payer MEDICARE, BC, SELFPAY | END 2025-08-29 08:23 | disposition home or self-care (01) | LOC: INJ CL 08:23 | PROVIDERS: PCP Family Medicine; Visit Provider Family Medicine | DX: M54.16 Radiculopathy, lumbar region (principal); M48.062 Spinal stenosis, lumbar region with neurogenic claudication | CPT/HCPCS: 62323; J0702; Q9966 ==

== ENCOUNTER 2025-09-26 09:18 | Outpatient (CLI) | payer MEDICARE, BC, SELFPAY | END 2025-09-26 09:19 | disposition home or self-care (01) | LOC: INJ CL 09:19 | PROVIDERS: PCP Family Medicine; Visit Provider Family Medicine | DX: M54.16 Radiculopathy, lumbar region (principal); M51.369 Other intervertebral disc degeneration, lumbar region without mention of lumbar back pain or lower extremity pain | CPT/HCPCS: 64483; 64484; J1100; Q9966 ==